=== PATIENT | male | born 1955 | race Caucasian/White ===

== ENCOUNTER 2017-10-23 09:56 | Day surgery (SDC) | payer MEDICARE ==
[2017-10-23] MEDS ORDERED: Fentanyl 250 MCG/5 ML VIAL ONE (11:51)
[2017-10-23] MEDS ORDERED: Midazolam HCl 2 mg/2 ml Vial ONE (11:51)
--- NOTE | 2017-10-23 13:35 | MRI ---
NONCONTRAST ENHANCED MRI BRAIN: Date: 10-23-17 History: 62-year-old male with history of headache. Technique: Multiplanar, multisequence noncontrast enhanced MRI images of the brain obtained. FINDINGS: The brain is unremarkable. No evidence of acute intracranial masses, hemorrhages, strokes or contusio ns seen. The ventricles are of normal size. No evidence of masses or lesions noted. There is minimal ethmoid sinus mucosal thickening seen. IMPRESSION: Unremarkable noncontrast enhanced MRI images of the brain. POS: [facility]
--- NOTE | 2017-10-23 14:12 | MRI ---
MRI CERVICAL SPINE WITHOUT CONTRAST: HISTORY: Skin paresthesias. COMPARISON: None. FINDINGS: The paraspinal musculature is bilaterally symmetric. No significant adenopathy. Back marrow signal of the cervical spine is normal. Cerebellar tonsils terminate above the foramen m agnum. Signal of the cord is normal. No acute fracture or malalignment. Levels are as follows: C2-3: No significant neural foraminal or spinal canal narrowing. Mild disk dehydration. C3-4: Mild facet arthrosis bilaterally. There is mild uncinate process hypertrophy. The spinal can al measures approximately 9 mm. C4-5: Moderate degenerative disk space height loss. Circumferential posterior disk-osteophyte compl ex as well as mild uncinate process hypertrophy. Moderate facet arthropathy. There is moderate left and mild right-sided neural foraminal narrowing. The spinal canal measures approximately 8 mm. C6-7: Mild facet arthrosis bilaterally. There is a large broad-based posterior disk-osteophyte comp theresa. The spinal canal measures approximately 8 mm. There is moderate right and mild left-side neura l foraminal narrowing. C6-7: There is near-complete effacement of the ventral CSF space due to a broad-based posterior disk protrusion. The spinal canal measures just under 7 mm. There is also mild disk arthropathy bilater ally. There is moderate and mild left side neural foraminal narrowing. IMPRESSION: 1. Multilevel spondylosis as described above, worst at C6-7 with near-complete effacement of the mildred tral cerebrospinal fluid space and narrowing of the spinal canal just under 7 mm. 2. Multifocal neural foraminal narrowing. POS: [facility]
== END 2017-10-23 14:35 | disposition home or self-care (01) ==
LOC: SDC/OP 09:56
PROVIDERS: ATTEND Psychiatry & Neurology Neurology
DX: M47.9 Spondylosis, unspecified (principal); M48.02 Spinal stenosis, cervical region; R20.2 Paresthesia of skin; Z88.0 Allergy status to penicillin
CPT/HCPCS: 70551; 72141; 93005; 93010; J2250; J3010

== ENCOUNTER 2018-10-06 19:56 | Inpatient (IN) | payer MEDICARE ==
[2018-10-06 20:30] LABS: #Basophils 0.1 thou/uL (0.0-0.2); #Eosinphils 0.2 thou/uL (0.0-0.7); #Lymphocytes 2.6 thou/uL (1.20-3.40); #Monocytes 0.6 thou/uL (0.11-0.59); #Neutrophils 5.8 thou/uL (1.40-6.50); %Basophils 0.8 % (0.0-1.0); %Eosinophils 2.2 % (0.0-10.0); %Lymphocytes 27.9 % (21.0-51.0); %Monocytes 6.7 % (0.0-10.0); %Neutrophils 62.4 % (42.0-75.0); Hemoglobin 9.9 g/dL (14.0-18.0); Mean Corpuscular HGB CONC 32.7 g/dL (32.0-36.0); Mean Corpuscular Hemoglobin 29.8 pg (27.0-31.0); Mean Corpuscular Volume 91.2 fL (78.0-98.0); Mean Platelet Volume 7.1 fL (7.4-10.4); Platelet Count 411 thou/uL (130-400); RBC Distribution Width 13.8 % (11.5-14.5); Red Blood Cell (RBC) Count 3.31 mill/uL (4.70-6.10); White Blood Cell (WBC) Count 9.4 thou/uL (4.8-10.8)
[2018-10-06 20:30] LABS: Base Excess-Venous 0.6 mmol/L (-2.0 to 3.0); Bicarbonate (HCO3v) 26.5 mmol/L (22.0-28.0); CO2 Tension (PvCO2) 48.1 mmHg (40.0-50.0); Calcium, Ionized 1.21 mmol/L (See Comments:); Chloride 110 mmol/L (98-107); Glucose 125 mg/dL (70-105); Hemoglobin - Calc 9.2 g/dL (14.0-18.0); Lactate 2.08 mmol/L (0.50-2.20); O2 Tension (PvO2) 42.6 mmHg (35.0-45.0); Potassium 3.6 mmol/L (3.5-5.1); Sodium 146 mmol/L (138-145); vO2 Saturation-calc 75.1 % (60.0-85.0)
[2018-10-06 20:37] LABS: INR-International Normal Ratio 1.1; PTT 25.3 SEC (22.9-36.1); Prothrombin Time 13.9 SEC (12.0-14.7)
[2018-10-06 20:51] LABS: ALT (SGPT) 13 U/L (8-55); AST (SGOT) 11 U/L (5-34); Albumin 3.6 g/dL (3.5-5.0); Alkaline Phosphatase 96 U/L (40-150); Anion Gap 15 mmol/L (10-20); BUN (Urea Nitrogen) 28 mg/dL (8.4-25.7); Bilirubin, Total 0.4 mg/dL (0.2-1.2); Calc. Creatinine Clearance 0 mL/min (70-130); Calcium 9.1 mg/dL (7.8-10.44); Carbon Dioxide 24 mmol/L (22-29); Chloride 110 mmol/L (98-107); Estimated GFR-MDRD 54; Globulin 2.1 g/dL (2.4-3.5); Glucose 124 mg/dL (70-105); Potassium 3.8 mmol/L (3.5-5.1); Protein, Total 5.7 g/dL (6.0-8.3); Sodium 145 mmol/L (136-145)
[2018-10-06] MEDS ORDERED: Pantoprazole 40 MG VIAL ONE (22:13)
--- NOTE | 2018-10-06 22:48 | HP ---
PRIMARY CARE PHYSICIAN: KATTY Sanchez CHIEF COMPLAINT: Bright red blood per rectum. HISTORY OF PRESENT ILLNESS: Mr. Matthew Hitchcock is a 62-year-old male with past medical history of coronary artery disease, status post stenting, diabetes type 2, colonic polyps, chronic diarrhea, and hypertension, who presents to the emergency department for bright red blood per rectum for the past 3 days. The patient reports that his bleeding started on Sunday and then it became more and more the following days. The patient was feeling very weak and that is why he came to the ER. The patient reports that he has this chronic diarrhea since May of 2018. The patient follows up with Dr. Carmen from GI. The patient had a colonoscopy about 1-1/2 week ago and they removed 24 polyps, some of them were large. The patient also is on aspirin and Plavix. 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 The patient in the ER was noted to be hypotensive and was started on fluids. GI was called and they will see the patient. The patient's hemoglobin is 9.9 on admission. The patient was surrounded by his and grandson. The patient denies any chest pain, shortness of breath, abdominal pain, nausea, vomiting, or diarrhea. PAST MEDICAL HISTORY: See HPI. PAST SURGICAL HISTORY: Coronary artery stents, polypectomy. MEDICATIONS: Include, 1. Atorvastatin. 2. Aspirin. 3. Cholestyramine. 4. Plavix. 5. Eszopiclone. 6. Levemir. 7. Losartan. 8. Lyrica. 9. Metoprolol. 10. NovoLog. 11. Nifedipine. 12. Tylenol No.3. 13. Zolpidem. 14. Trulicity. 15. Creon. 16. Vascepa. FAMILY HISTORY: The patient is unsure about his family history. SOCIAL HISTORY: The patient is a current smoker. The patient drinks occasionally. The patient says occasionally that he will also have marijuana. REVIEW OF SYSTEMS: A 10-point review of systems negative other than mentioned in the HPI. ALLERGIES: KNOWN ALLERGIES TO PENICILLIN. PHYSICAL EXAMINATION: VITAL SIGNS: Blood pressure 94/59, pulse 83, respiration rate 18, temperature 97.8, O2 saturation 95% on room air. HEENT: Head is atraumatic. GENERAL: The patient is alert and in good spirits. EARS, NOSE, AND THROAT: No exudate or bleeding noted. NECK: No lymphadenopathy noted. CARDIOVASCULAR: No murmurs, rubs, or gallops. Regular rate and rhythm. RESPIRATORY: The patient has clear breath sounds bilaterally. No wheezes. ABDOMEN: Soft and nontender. Bowel sounds hyperactive. EXTREMITIES: Lower extremities, no edema noted. NEUROLOGIC: The patient is alert. SKIN: No rashes noted. LABORATORY DATA: The patient's white blood cell count 9.4, hemoglobin 9.9, hematocrit 30.2, platelets 411. PT 13.9, INR 1.1, and PTT 25. Blood gases, VBG noted to be within acceptable limit. The patient's BNP 145, potassium 3.8, chloride 110, carbon dioxide 24, BUN 28, creatinine 1.34, glucose 124, AST and ALT 11 and 13 respectively, alkaline phosphatase 96. No imaging studies were done. ASSESSMENT: 1. Lower gastrointestinal bleed. 2. Hypertension. 3. Coronary artery disease. 4. Diabetes. 5. Hypotension. 6. Chronic diarrhea. PLAN: 1. Acute lower GI bleed, likely from multiple polypectomy recently. GI, Dr. Quigley was consulted. The patient is n.p.o. at this point. Type and screen. 1 unit of PRBC ordered. 1 unit of PRBC on hold. We will trend hemoglobin q.6. Although hemoglobin is 9.9, I do not think so that this is accurate measure at this point. The patient's acute anemia is likely due to lower GI bleed. We will continue to monitor the patient closely. 2. The patient's hypotension is likely due to lower GI bleed. The patient's BP on admission was in 70s. The patient responded to IV fluids and now his blood pressure is in 90s. Continue IV fluids and PRBC transfusion. The patient does not seem to be in the hypotensive shock at this point. Sole Rougher consulted. 3. Acute GI blood loss anemia. Plan as mentioned above. 4. Hypertension. The patient is hypertensive. We will hold home BP medication. We will add hydralazine p.r.n. for blood pressure greater than 170. 5. Coronary artery disease. We will hold the patient's aspirin and Plavix at this point. 6. Diabetes with peripheral neuropathy. The patient is n.p.o. at this point. We will hold home insulin. We will order sliding scale insulin. The patient reports that he has severe pain due to diabetic neuropathy. We will continue his home Lyrica at his request. The patient although has responded to fluids, his blood pressure is still remains low, that is why we will admit the patient to the ICU at this point. 7. The patient is full code. Medical power of real estate associate attorney is . 8. DVT prophylaxis, SCD only. Job ID: [id number]
[2018-10-06] MEDS ORDERED: Lidocaine Viscous Sol 2% 15 ml UD Cup ONE (23:03)
[2018-10-06] MEDS ORDERED: Mag-Al 1200 mg/1200 mg/30 ML UDCUP ONE (23:03)
[2018-10-06] MEDS ORDERED: HumaLOG 300 UNITS/3 ML VIAL SC PRN (23:27)
[2018-10-06] MEDS ORDERED: diphenhydrAMINE 25 MG CAP PO PRN (23:27)
[2018-10-06] MEDS ORDERED: Pantoprazole 40 MG VIAL IVP SCH (23:27)
[2018-10-06] MEDS ORDERED: hydrALAZINE 20 MG/ML VIAL SLOW IVP PRN (23:27)
[2018-10-06] MEDS ORDERED: Dextrose 50% Abboject 50 ML SYRINGE SLOW IVP PRN (23:27)
[2018-10-06] MEDS ORDERED: Furosemide 20 MG/2 ML VIAL IVP SCH (23:27)
[2018-10-06] MEDS ORDERED: Ondansetron PF 4 MG/2 ML Vial IVP PRN (23:27)
[2018-10-06] MEDS ORDERED: Acetaminophen 325 MG TAB PO PRN (23:27)
[2018-10-06] MEDS ORDERED: Dextrose 5% in Water 1,000 ML IV PRN (23:27)
[2018-10-06 23:30] VITALS: BMI 36.1
[2018-10-06] MEDS ORDERED: GoLYTELY 4,000 ml Bottle PO SCH (23:30)
[2018-10-06] MEDS: Sodium Chloride 0.9% 1,000 ML IV SCH (23:47)
[2018-10-07 00:09] LABS: Lactic Acid 1.1 mmol/L (0.5-2.2)
[2018-10-07] MEDS: Sodium Chloride 0.9% 1,000 ML IV SCH ×3 (00:12→10:38)
--- NOTE | 2018-10-07 00:31 | CON ---
DATE OF CONSULTATION: 10/06/2018 REASON FOR CONSULTATION: Hematochezia. CONSULTING PHYSICIAN: Rodolfo Chen M.D. HISTORY OF PRESENT ILLNESS: The patient is a 62-year-old male with past medical history of diabetes, coronary artery disease/myocardial infarction, hyperlipidemia, hypertension, pancreatitis, nephrolithiasis, and chronic diarrhea presenting with complaints of hematochezia. He states that he was in his usual state of health until approximately 2 to 3 days ago when he began having bright red blood per rectum that was present both in the toilet and on the toilet paper. He was having approximately 3-4 of these bloody bowel movements a day with the majority of them being nothing, but gross blood, this was slowly increasing in severity over the last 2 to 3 days until ultimately brought him to seek healthcare assistance and admission here to the ER at [facility]. Upon evaluation at [place] [facility], he was hypotensive and tachycardic, but did respond well to IV fluid administration and blood product with his systolic blood pressure of approximately 130 at the time of this interview. In addition to the above symptoms, he also complained of increase of his neuropathic pain over the last 2 to 3 days along with having a presyncopal event on his way to the ER earlier this evening. Currently, he denies any nausea, vomiting, fevers, chills, hematemesis, melena, or abdominal pain. Of note, he had a colonoscopy performed on September 25, 2018, with approximately 24 polyps removed measuring anywhere between 2 to 11 mm in size. 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 REVIEW OF SYSTEMS: A 10-category review of systems was obtained with all responses negative except for the pertinent positives as listed in the HPI. PAST MEDICAL HISTORY: As per HPI. PAST SURGICAL HISTORY: 1. Colonoscopy with polypectomy. 2. Coronary artery stent placement. FAMILY HISTORY: Denies any GI malignancy, but relatively unknown family history. SOCIAL HISTORY: Smokes approximately one pack per day in addition to intermittent use of marijuana, also drinks occasionally, but denies any other illicit drug use. OUTPATIENT MEDICATIONS: Reviewed. ALLERGIES: PENICILLIN. PHYSICAL EXAMINATION: VITAL SIGNS: Pulse 83, blood pressure 130/74, respiratory rate 18, saturating 95% on room air, temperature 97.8. GENERAL: The patient is lying in bed, in no acute distress. Alert and oriented x4. HEENT: Normocephalic, atraumatic. NECK: Supple. No JVD or scleral icterus noted. CARDIOVASCULAR: Regular rate and rhythm with no discernible murmurs, gallops, or rubs. RESPIRATORY: Clear to auscultation bilaterally with no discernible wheezes or rales. ABDOMEN: Normoactive bowel sounds. Soft, nontender, nondistended. EXTREMITIES: No cyanosis, clubbing, or edema. LABORATORY DATA: CBC with a white blood cell count of 9.4, hemoglobin 9.9, hematocrit 30.2, platelets 411. INR 1.1. Chemistry with a sodium of 146, potassium 3.8, chloride 110, CO2 of 24, BUN 28, creatinine 1.34, glucose 124, AST 11, ALT 13, alkaline phosphatase 96, total bilirubin 0.4, albumin 3.6. IMAGING DATA: No current GI imaging is available for review. ASSESSMENT AND PLAN: The patient is a 62-year-old male with past medical history of diabetes, coronary artery disease/myocardial infarction, hyperlipidemia, hypertension, pancreatitis, nephrolithiasis, and chronic diarrhea presenting with hematochezia. Hematochezia. The patient is presenting with a relatively acute onset of hematochezia characterized as bright red blood per rectum present both in the toilet and on the toilet paper that has been present for the last 2 to 3 days. This rectal bleeding has increased over the last 2 to 3 days, now having approximately 3 to 4 bowel movements over the last 24 hours, primarily consisting of gross blood. He recently had a colonoscopy performed approximately 10 days ago with removal of 24 polyps measuring anywhere between 2 to 11 mm in size, but also did have mild sigmoid diverticulosis as well as a bleeding arteriovenous malformation that was cauterized in the cecum. At this point, the more likely reason for his hematochezia would be a colonic origin whether be a post polypectomy bleed, diverticular bleed or rebleeding of the arteriovenous malformation that was intervened upon during the time of colonoscopy. However, given his hypotension and tachycardia noted on admission to the ER, an upper GI bleeding source should be ruled out as well. RECOMMENDATIONS: 1. We would continue to trend H and H and transfuse as necessary to maintain an H and H of 7/. 2. Continue to monitor clinically for signs of active GI bleeding. 3. We would continue the patient on either PPI 40 b.i.d. or a PPI drip given a likelihood of upper GI bleed. 4. We would make the patient n.p.o. Now with the administration of GoLYTELY prep in anticipation of colonoscopy in the morning. 5. We will plan for both EGD and colonoscopy tomorrow morning for evaluation of the upper and lower GI tract for signs of for etiology of GI bleeding. 6. We would avoid any anticoagulations at the current point in time, including clopidogrel. 7. We will continue to follow. 8. Please call with any questions. Job ID: [id number]
[2018-10-07] MEDS ORDERED: Furosemide 40 MG/4 ML VIAL ONE (04:59)
[2018-10-07] MEDS: HYDROcodone/Acetaminophen 5/325 mg Tablet PO PRN (05:00)
[2018-10-07 06:28] LABS: #Basophils 0.1 thou/uL (0.0-0.2); #Eosinphils 0.1 thou/uL (0.0-0.7); #Lymphocytes 2.6 thou/uL (1.20-3.40); #Monocytes 0.6 thou/uL (0.11-0.59); #Neutrophils 7.8 thou/uL (1.40-6.50); %Basophils 0.6 % (0.0-1.0); %Eosinophils 1.2 % (0.0-10.0); %Monocytes 5.4 % (0.0-10.0); %Neutrophils 69.9 % (42.0-75.0); Hemoglobin 10.6 g/dL (14.0-18.0); Mean Corpuscular HGB CONC 32.5 g/dL (32.0-36.0); Mean Corpuscular Hemoglobin 29.7 pg (27.0-31.0); Mean Corpuscular Volume 91.3 fL (78.0-98.0); Mean Platelet Volume 7.2 fL (7.4-10.4); Platelet Count 380 thou/uL (130-400); Red Blood Cell (RBC) Count 3.58 mill/uL (4.70-6.10); White Blood Cell (WBC) Count 11.2 thou/uL (4.8-10.8)
[2018-10-07 06:50] LABS: Anion Gap 13 mmol/L (10-20); BUN (Urea Nitrogen) 25 mg/dL (8.4-25.7); Calc. Creatinine Clearance 145 mL/min (70-130); Calcium 9.2 mg/dL (7.8-10.44); Carbon Dioxide 25 mmol/L (22-29); Chloride 111 mmol/L (98-107); Estimated GFR-MDRD 77; Glucose 115 mg/dL (70-105); Potassium 3.6 mmol/L (3.5-5.1); Sodium 145 mmol/L (136-145)
[2018-10-07 07:02] LABS: #Basophils 0.1 thou/uL (0.0-0.2); #Eosinphils 0.1 thou/uL (0.0-0.7); #Lymphocytes 2.5 thou/uL (1.20-3.40); #Monocytes 0.6 thou/uL (0.11-0.59); #Neutrophils 7.7 thou/uL (1.40-6.50); %Basophils 0.7 % (0.0-1.0); %Eosinophils 1.3 % (0.0-10.0); %Lymphocytes 22.8 % (21.0-51.0); %Monocytes 5.1 % (0.0-10.0); %Neutrophils 70.1 % (42.0-75.0); Mean Corpuscular HGB CONC 32.7 g/dL (32.0-36.0); Mean Corpuscular Hemoglobin 29.7 pg (27.0-31.0); Mean Platelet Volume 6.9 fL (7.4-10.4); Platelet Count 388 thou/uL (130-400); Red Blood Cell (RBC) Count 3.35 mill/uL (4.70-6.10); White Blood Cell (WBC) Count 10.9 thou/uL (4.8-10.8)
--- NOTE | 2018-10-07 08:00 | PDOC.PULCN ---
Pulmonology Consult: HPI - Date of Consult Date: 10/06/18 Time: 23:27 - Consult Details Reason for Consult: ICU placement, hypotension 2/2 GI bleed Requesting Physician: Dr. Boyce Comments: History and physical exam and note written by resident physician, Dr. Condon, seeing patient with Dr. Luna. Please see addendum to note for additional plan/changes. - History of Present Illness HPI: GIDEON STEPHEN is a 62 year-old M with a PMH of CAD, HTN, HLD, DM, Pancreatitis and Chronic diarrhea who was brought into ED by for a 2-3 day history of painless BRBPR, approximately 3-4 episodes per day. He developed weakness and pre-syncope so he decided to come to ER yesterday. Patient states that he recently had colonoscopy performed in September 2018 for workup of chronic diarrhea that began in May 2018. During colonoscopy, approximately 24 2-11 mm polyps were removed and AVM was cauterized in cecum. He was also noted to have mild sigmoid diverticulosis. Patient was hypotensive upon presentation to the ED and BP responded to IVF resuscitation. Hemoglobin on admission was 9.9. Hemoglobin this morning is 10.0 and he is s/p 1 U pRBC. Patient has been seen by GI with plan for colonoscopy today. He has been drink prep and continues to have BRBPR. He continues to be hemodynamically stable since admission and he is pain free. Pulmonology Consult: ROS - Review of Systems Constitutional: negative: fever, chills, sweats Cardiovascular: negative: chest pain, palpitations, orthopnea, paroxysmal nocturnal dyspnea, edema Respiratory: negative: bloody sputum, congestion, cough, chest tightness Pulmonology Consult: PMH Source: patient Past Medical History: CAD, Hypertension, Hyperlipidemia, Type 2 Diabetes Mellitus, Pancreatitis, Nephrolithiasis, Chronic Diarrhea - Family History Pertinent family history: patient unsure of family history - Social History Smoking Status: Current every day smoker Alcohol Use: occasional Drug Use History: marijuana Living Situation: Pulmonology Consult: Meds - Medications MAR Reviewed: Yes Medications: Current Medications Acetaminophen (Tylenol) 650 mg PO Q4H PRN PRN Reason: Headache/Fever/Mild Pain (1-3) Hydrocodone Bitart/Acetaminophen ([place] 5/325) 1 tab PO Q4H PRN PRN Reason: Moderate Pain (4-6) Last Admin: 10/07/18 05:00 Dose: 1 tab Dextrose/Water (Dextrose 50%) 25 gm SLOW IVP PRN PRN PRN Reason: Hypoglycemia Diphenhydramine HCl (Benadryl) 25 mg PO ONE PRN PRN Reason: Allergies Stop: 10/07/18 08:00 Furosemide (Lasix) 10 mg IVP ONE [facility] Stop: 10/07/18 23:28 Glucagon (Glucagon) 1 mg IM PRN PRN PRN Reason: Hypoglycemia Hydralazine HCl (Apresoline) 10 mg SLOW IVP Q4H PRN PRN Reason: SBP Greater Than 170 Dextrose/Water (D5w) 1,000 mls @ 0 mls/hr IV .Q0M PRN PRN Reason: Hypoglycemia Sodium Chloride (Normal Saline 0.9%) 1,000 mls @ 100 mls/hr IV .Q10H [facility] Stop: 10/07/18 16:00 Last Admin: 10/06/18 23:47 Dose: Not Given Sodium Chloride (Normal Saline 0.9%) 1,000 mls @ 150 mls/hr IV .Q6H40M [facility] Stop: 10/07/18 11:00 Last Admin: 10/07/18 05:07 Dose: 1,000 mls Insulin Human Lispro (Humalog) 0 units SC .MILD SLIDING SCALE PRN PRN Reason: Mild Correctional Scale Ondansetron HCl (Zofran) 4 mg IVP Q6H PRN PRN Reason: Nausea/Vomiting Last Admin: 10/07/18 03:50 Dose: 4 mg Pantoprazole Sodium (Protonix) 40 mg IVP Q12HR [facility] Pregabalin (Lyrica) 150 mg PO TID [facility] Sodium Chloride (Flush - Normal Saline) 10 ml IVF PRN PRN PRN Reason: Saline Flush - Allergies Allergies/Adverse Reactions: Allergies Allergy/AdvReac Type Severity Reaction Status Date / Time Penicillins Allergy Anaphylaxis Verified 10/06/18 23:44 Pulmonology Consult: PE - Physical Exam Constitutional: NAD HEENT: PERRLA, moist MMs, sclera anicteric Neck: no JVD, supple, full ROM Cardiovascular: RRR, no significant murmur Respiratory: clear to auscultation anteriorly Gastrointestinal: soft, non-tender, no distention, positive bowel sounds Musculoskeletal: no edema, pulses present Neurological: non-focal, normal sensation, moves all 4 limbs Psychiatric: normal affect, A&O x 3 Skin: no rash, cap refill <2 seconds Pulmonology Consult: Results - Labs Result Diagrams: 10/09/18 04:44 10/09/18 04:44 - ABG Interpretation ABG Results: POC Bicarbonate Calc 26.5 mmol/L (22.0-28.0) 10/06/18 20:28 Pulmonology Consult: A/P - Problem (1) Anemia due to acute blood loss Current Visit: Yes Code(s): D62 - ACUTE POSTHEMORRHAGIC ANEMIA Status: Acute (2) GI bleed Current Visit: Yes Code(s): K92.2 - GASTROINTESTINAL HEMORRHAGE, UNSPECIFIED Status: Acute (3) CAD (coronary artery disease) Current Visit: Yes Code(s): I25.10 - ATHSCL HEART DISEASE OF [place] CORONARY ARTERY W/O ANG PCTRS Status: Chronic (4) Chronic pancreatitis Current Visit: Yes Code(s): K86.1 - OTHER CHRONIC PANCREATITIS Status: Chronic (5) Diabetes type 2, controlled Current Visit: Yes Code(s): E11.9 - TYPE 2 DIABETES MELLITUS WITHOUT COMPLICATIONS Status: Chronic (6) Dyslipidemia Current Visit: Yes Code(s): E78.5 - HYPERLIPIDEMIA, UNSPECIFIED Status: Chronic (7) Obesity (BMI 30-39.9) Current Visit: Yes Code(s): E66.9 - OBESITY, UNSPECIFIED Status: Chronic (8) Acute kidney injury Current Visit: Yes Code(s): N17.9 - ACUTE KIDNEY FAILURE, UNSPECIFIED Status : Resolved (9) Hypotension Current Visit: Yes Status: Resolved - Time Time: 50% of the time was spent in coordination of care (as documented) at patient's floor/unit and/or counseling patient. Time with Patient: greater than 70 minutes - Plan Plan: Patient is stable from a respiratory and hemodynamic standpoint. Hypotension and UDAY have resolved with IVFs. Hemoglobin currently at 10.0 s/p 1 U pRBC. Patient is to undergo colonoscopy today, has completed prep. Continue to hold aspirin and plavix. IV protonix 40 mg BID. Further management per primary team and GI. Will follow closely while in the CCU. Depending upon findings during colonoscopy, patient can likely be transferred to the floor today. Addendum - Attending - Attending Attestation Date/Time: 10/07/181599 I personally evaluated the patient and discussed the management with Dr. Condon. I agree with the History, Examination, Assessment and Plan documented above with any addition or exceptions noted below. 70 minutes have been devoted to this patient in various activities. I personally reviewed all imaging studies and laboratory data noted within this document. For fifty percent of this time, I was interacting with the patient at the bedside or coordinating care with the care team. For the remainder of the time I was immediately available to the patient in the hospital unit.
[2018-10-07] MEDS: Pantoprazole 40 MG VIAL IVP SCH ×2 (08:16→21:36)
[2018-10-07] MEDS: Pregabalin 50 MG CAP PO SCH ×3 (10:37→21:35)
--- NOTE | 2018-10-07 10:37 | PDOC.PN ---
- Subjective Encounter Start Date: 10/07/18 Encounter Start Time: 09:00 -: old records requested/rev Patient seen and examined. No new complaints. No overnight events - Objective Resuscitation Status - Order Detail: 10/06/18 21:29 Resuscitation Status Routine Resuscitation Status: FULL: Full Resuscitation MAR Reviewed: Yes Vital Signs & Weight: Vital Signs (12 hours) Temp Pulse Ox 10/07/18 08:00 99 10/07/18 07:00 97.7 F 10/07/18 04:00 97.9 F 10/07/18 00:00 98.5 F 98 Weight Admit Weight 281 lb 4.957 oz Weight 284 lb 13.396 oz Most Recent Monitor Data Heart Rate from ECG 94 NIBP 120/78 NIBP BP-Mean 92 Respiration from ECG 16 SpO2 94 I&O: 10/06/18 10/07/18 10/08/18 06:59 06:59 06:59 Intake Total 5291 0 Output Total 200 Balance 5091 0 Result Diagrams: 10/07/18 06:41 10/07/18 05:52 Additional Labs: Accuchecks 10/07/18 10/06/18 06:04 23:39 POC Glucose 126 H 161 H EKG Reviewed by me: Yes Phys Exam - Physical Examination Constitutional: NAD HEENT: PERRLA, moist MMs, sclera anicteric Neck: no JVD, supple Respiratory: no wheezing, no rales, no rhonchi Cardiovascular: RRR, no significant murmur, no rub Gastrointestinal: soft, non-tender, no distention, positive bowel sounds obesity+ Musculoskeletal: no edema, pulses present Neurological: non-focal, normal sensation, moves all 4 limbs Lymphatic: no nodes Psychiatric: normal affect, A&O x 3 Skin: no rash, normal turgor Dx/Plan (1) Anemia due to acute blood loss Code(s): D62 - ACUTE POSTHEMORRHAGIC ANEMIA Status: Acute (2) GI bleed Code(s): K92.2 - GASTROINTESTINAL HEMORRHAGE, UNSPECIFIED Status: Acute (3) CAD (coronary artery disease) Code(s): I25.10 - ATHSCL HEART DISEASE OF [place] CORONARY ARTERY W/O ANG PCTRS Status: Chronic (4) Chronic pancreatitis Code(s): K86.1 - OTHER CHRONIC PANCREATITIS Status: Chronic (5) Diabetes type 2, controlled Code(s): E11.9 - TYPE 2 DIABETES MELLITUS WITHOUT COMPLICATIONS Status: Chronic (6) Dyslipidemia Code(s): E78.5 - HYPERLIPIDEMIA, UNSPECIFIED Status: Chronic (7) Hypertension Code(s): I10 - ESSENTIAL (PRIMARY) HYPERTENSION Status: Chronic (8) Obesity (BMI 30-39.9) Code(s): E66.9 - OBESITY, UNSPECIFIED Status: Chronic (9) Acute kidney injury Code(s): N17.9 - ACUTE KIDNEY FAILURE, UNSPECIFIED Status: Resolved (10) Hypotension Status: Resolved - Plan cont current plan of care * today EGD and colonoscopy * vitals stable * transfer to medical * medication reviewed as below * symptomatic treatment. Review of Systems - Review of Systems Eyes: negative: Pain, Vision Change, Conjunctivae Inflammation, Eyelid Inflammation, Redness, Other ENT: negative: Ear Pain, Ear Discharge, Nose Pain, Nose Discharge, Nose Congestion, Mouth Pain, Mouth Swelling, Throat Pain, Throat Swelling, Other Respiratory: negative: Cough, Dry, Shortness of Breath, Hemoptysis, SOB with Excertion, Pleuritic Pain, Sputum, Wheezing Cardiovascular: negative: chest pain, palpitations, orthopnea, paroxysmal nocturnal dyspnea, edema, light headedness, other Gastrointestinal: Hematochezia. negative: Nausea, Vomiting, Abdominal Pain, Diarrhea, Constipation, Melena, Other Genitourinary: negative: Dysuria, Frequency, Incontinence, Hematuria, Retention , Other Musculoskeletal: negative: Neck Pain, Shoulder Pain, Arm Pain, Back Pain, Hand Pain, Leg Pain, Foot Pain, Other Skin: negative: Rash, Lesions, Juanp[place], Bruising, Other - Medications/Allergies Allergies/Adverse Reactions: Allergies Allergy/AdvReac Type Severity Reaction Status Date / Time Penicillins Allergy Anaphylaxis Verified 10/06/18 23:44 Medications: Current Medications Acetaminophen (Tylenol) 650 mg PO Q4H PRN PRN Reason: Headache/Fever/Mild Pain (1-3) Hydrocodone Bitart/Acetaminophen ([place] 5/325) 1 tab PO Q4H PRN PRN Reason: Moderate Pain (4-6) Last Admin: 10/07/18 05:00 Dose: 1 tab Dextrose/Water (Dextrose 50%) 25 gm SLOW IVP PRN PRN PRN Reason: Hypoglycemia Furosemide (Lasix) 10 mg IVP ONE [facility] Stop: 10/07/18 23:28 Glucagon (Glucagon) 1 mg IM PRN PRN PRN Reason: Hypoglycemia Hydralazine HCl (Apresoline) 10 mg SLOW IVP Q4H PRN PRN Reason: SBP Greater Than 170 Dextrose/Water (D5w) 1,000 mls @ 0 mls/hr IV .Q0M PRN PRN Reason: Hypoglycemia Sodium Chloride (Normal Saline 0.9%) 1,000 mls @ 100 mls/hr IV .Q10H [facility] Stop: 10/07/18 16:00 Last Admin: 10/06/18 23:47 Dose: Not Given Sodium Chloride (Normal Saline 0.9%) 1,000 mls @ 150 mls/hr IV .Q6H40M [facility] Stop: 10/07/18 11:00 Last Admin: 10/07/18 05:07 Dose: 1,000 mls Insulin Human Lispro (Humalog) 0 units SC .MILD SLIDING SCALE PRN PRN Reason: Mild Correctional Scale Ondansetron HCl (Zofran) 4 mg IVP Q6H PRN PRN Reason: Nausea/Vomiting Last Admin: 10/07/18 03:50 Dose: 4 mg Pantoprazole Sodium (Protonix) 40 mg IVP Q12HR [facility] Last Admin: 10/07/18 08:16 Dose: 40 mg Pregabalin (Lyrica) 150 mg PO TID [facility] Sodium Chloride (Flush - Normal Saline) 10 ml IVF PRN PRN PRN Reason: Saline Flush
[2018-10-07] MEDS ORDERED: Lidocaine 1% PF 5 ML VIAL ONE (11:58)
[2018-10-07] MEDS ORDERED: PROPOFOL 200 MG/20 ML VIAL ONE (11:58)
[2018-10-07 12:11] LABS: #Basophils 0.1 thou/uL (0.0-0.2); #Eosinphils 0.1 thou/uL (0.0-0.7); #Monocytes 0.5 thou/uL (0.11-0.59); #Neutrophils 5.5 thou/uL (1.40-6.50); %Basophils 0.7 % (0.0-1.0); %Eosinophils 1.7 % (0.0-10.0); %Lymphocytes 24.5 % (21.0-51.0); %Neutrophils 67.1 % (42.0-75.0); Hemoglobin 8.9 g/dL (14.0-18.0); Mean Corpuscular HGB CONC 32.4 g/dL (32.0-36.0); Mean Corpuscular Hemoglobin 29.3 pg (27.0-31.0); Mean Corpuscular Volume 90.2 fL (78.0-98.0); Mean Platelet Volume 6.8 fL (7.4-10.4); Platelet Count 365 thou/uL (130-400); Red Blood Cell (RBC) Count 3.04 mill/uL (4.70-6.10); White Blood Cell (WBC) Count 8.2 thou/uL (4.8-10.8)
[2018-10-07] MEDS ORDERED: Fentanyl 100 MCG/2 ML VIAL ONE (14:51)
[2018-10-07 17:28] LABS: Hemoglobin 8.4 g/dL (14.0-18.0)
[2018-10-08 05:20] LABS: Hemoglobin 7.9 g/dL (14.0-18.0)
[2018-10-08] MEDS ORDERED: Eucerin (Mineral Oil/Petrolatum,White) 30 gm Jar TOP PRN (07:47)
[2018-10-08] MEDS ORDERED: Calcium Carbonate 500 MG ChewTAB PO PRN (07:47)
[2018-10-08] MEDS ORDERED: Sodium Chloride 0.65% Nasal 44 ML BOT EA NARE PRN (07:47)
[2018-10-08] MEDS ORDERED: Diabetic Tussin 200 MG/10 ML UDCUP PO PRN (07:47)
[2018-10-08] MEDS ORDERED: Senokot S 8.6-50 MG TAB PO PRN (07:47)
[2018-10-08] MEDS ORDERED: Bisacodyl 5 MG TAB PO PRN (07:47)
[2018-10-08] MEDS ORDERED: Ondansetron ODT 4 MG TAB SL PRN (07:47)
[2018-10-08] MEDS ORDERED: Artificial Tears 18 DROP/0.9 ML EA EYE PRN (07:47)
[2018-10-08] MEDS ORDERED: Cepastat Lozenges 1 LOZ PO PRN (07:47)
[2018-10-08] MEDS ORDERED: Acetaminophen 325 MG TAB PO PRN (07:47)
[2018-10-08] MEDS: Pregabalin 50 MG CAP PO SCH ×3 (08:39→21:02)
[2018-10-08] MEDS: Pantoprazole 40 MG VIAL IVP SCH ×2 (08:41→21:03)
[2018-10-08] MEDS: HYDROcodone/Acetaminophen 5/325 mg Tablet PO PRN ×2 (08:50→14:52)
--- NOTE | 2018-10-08 08:52 | OP ---
DATE OF PROCEDURE: 10/07/2018 PREPROCEDURE DIAGNOSES: 1. Lower gastrointestinal bleeding. 2. Recent colonoscopy with 19 polyps removed on 09/25/2018. POSTPROCEDURE DIAGNOSES: 1. Multiple polypectomy sites, none with visible vessel or active bleeding. One with red spots in the base of the cecum. Hemoclip was placed on that. 3 mL of epi was injected in that area as well and help clear the area. 2. Other multiple white based ulcers without active bleeding noted scattered throughout the colon. 3. Several flat polyps especially about 50 cm to 60 cm in the splenic flexure region. These were not removed secondary to the issues of bleeding at this time. RECOMMENDATIONS: 1. Hold Plavix for 10 days. 2. Monitor H and H. 3. Advance diet slowly. 4. The patient will have probably short followup interval colonoscopy with regard to the remaining polyps seen and the number of polyps removed at the time of this colonoscopy. ANESTHESIA: TIVA. PROCEDURE IN DETAIL: The patient was informed of the risks, benefits, and possible complications of endoscopy including perforation, reaction to medication, and aspiration, informed consent was obtained. The patient was brought to the endoscopy suite, where he was sedated in gradual fashion. Once he was comfortable, a bite block was placed into the rectum. Once he was comfortable, rectal exam was performed which was normal. The endoscope was advanced to the anal colon through the colon to the cecum, which was identified by the ileocecal valve and appendiceal orifice. The terminal ileum was entered and found to be normal. There was clot throughout the colon which was irrigated away with about 2 L of sterile water. The procedure time was about an hour and 15 minutes. We were able to clear the colon and find multiple polypectomy sites with ulceration most of white base with no stigmata of bleeding, but one in the cecum had some red spots and we did inject some epi around that to get the oozing to stop. A hemoclip was then placed. The scope was removed with good visualization of the colon and any air, old blood or clot was pulled, it was suctioned and evacuated. A BioVac suction adapter was used to help really get the colon clean. No other bleeding sites were identified. Multiple flat polyps were noted with increased mucosal enhancement of the blood and the lumen showed some flat polyps in the area of the splenic flexure, about 50 cm to 60 cm in the anorectal verge. Retroflexion views in the rectum were normal. The scope was removed. The patient tolerated the procedure well. No complications. Job ID: [id number]
[2018-10-08] MEDS ORDERED: Losartan 25 MG TAB PO SCH (09:30)
[2018-10-08] MEDS ORDERED: Furosemide 40 MG/4 ML VIAL SLOW IVP SCH (09:30)
--- NOTE | 2018-10-08 09:39 | PRG ---
DATE OF SERVICE: 10/08/2018 SERVICE: Pulmonary Medicine. INTERVAL HISTORY: The patient did fine overnight. His hemoglobin and hematocrit remained stable. He had a colonoscopy yesterday. No visible bleeding was noted , but there was a red spot in the cecum. That place was hemoclipped and injected. There were multiple white based ulcers that were otherwise identified. GI has made some recommendations. He had a bowel movement yesterday, and he did not have any blood in it. Denies any fevers, chills, or overnight events. He is getting a whooshing sound in his ear when he sits up right. This can happen whenever his blood pressure becomes more elevated. Since he has been here, his home blood pressure medications were appropriately held. PHYSICAL EXAMINATION: VITAL SIGNS: Afebrile, pulse 81, blood pressure 169/78, respirations 15, and saturation 97% on room air. GENERAL: The patient is awake and alert, in no apparent distress. LUNGS: Excellent air entry. There is no prolonged expiratory phase or wheezing present. HEART: Normal rate and regular. ABDOMEN: Soft, nontender, and nondistended. Bowel sounds are positive. MUSCULOSKELETAL: No cyanosis or clubbing. No pitting in the bilateral lower extremities. NEUROLOGIC: Grossly nonfocal. LABORATORY DATA: Hemoglobin is stable at 7.9. INR 1.1. Basic metabolic profile is otherwise unremarkable. ASSESSMENT: 1. Acute blood loss anemia, stable. 2. Lower gastrointestinal bleed. 3. Recent colonoscopy, status post polypectomy, multiple. DISCUSSION AND PLAN: We will resume the patient's home blood pressure medications. I will provide him with a single dose of Lasix as well. We will start to mobilize him. I will transition him out of the ICU to the medical unit. The patient has no further requirements for inpatient Pulmonary/Critical Care opinion, and I will sign off. Please call with additional questions or concerns. Job ID: [id number] [facility]
--- NOTE | 2018-10-08 12:14 | PDOC.PN ---
- Subjective Encounter Start Date: 10/08/18 Encounter Start Time: 10:00 Patient seen and examined. No new complaints. No overnight events - Objective Resuscitation Status - Order Detail: 10/06/18 21:29 Resuscitation Status Routine Resuscitation Status: FULL: Full Resuscitation MAR Reviewed: Yes Vital Signs & Weight: Vital Signs (12 hours) Temp Pulse Ox 10/08/18 08:00 98 10/08/18 04:00 98.1 F Weight Admit Weight 281 lb 4.957 oz Weight 288 lb 1.954 oz Most Recent Monitor Data Heart Rate from ECG 95 NIBP 177/105 NIBP BP-Mean 129 Respiration from ECG 19 SpO2 93 I&O: 10/07/18 10/08/18 10/09/18 06:59 06:59 06:59 Intake Total 5291 2822 Output Total 200 750 Balance 5091 2072 Result Diagrams: 10/08/18 04:27 10/07/18 05:52 Additional Labs: Accuchecks 10/08/18 10/08/18 10/07/18 11:37 06:04 17:34 POC Glucose 148 H 129 H 123 H EKG Reviewed by me: Yes Phys Exam - Physical Examination Constitutional: NAD HEENT: PERRLA, moist MMs, sclera anicteric Neck: no JVD, supple Respiratory: no wheezing, no rales, no rhonchi Cardiovascular: RRR, no significant murmur, no rub Gastrointestinal: soft, non-tender, no distention, positive bowel sounds Musculoskeletal: no edema, pulses present Neurological: non-focal, normal sensation, moves all 4 limbs Lymphatic: no nodes Psychiatric: normal affect, A&O x 3 Skin: no rash, normal turgor Dx/Plan (1) Anemia due to acute blood loss Code(s): D62 - ACUTE POSTHEMORRHAGIC ANEMIA Status: Acute (2) GI bleed Code(s): K92.2 - GASTROINTESTINAL HEMORRHAGE, UNSPECIFIED Status: Acute (3) CAD (coronary artery disease) Code(s): I25.10 - ATHSCL HEART DISEASE OF [place] CORONARY ARTERY W/O ANG PCTRS Status: Chronic (4) Chronic pancreatitis Code(s): K86.1 - OTHER CHRONIC PANCREATITIS Status: Chronic (5) Diabetes type 2, controlled Code(s): E11.9 - TYPE 2 DIABETES MELLITUS WITHOUT COMPLICATIONS Status: Chronic (6) Dyslipidemia Code(s): E78.5 - HYPERLIPIDEMIA, UNSPECIFIED Status: Chronic (7) Hypertension Code(s): I10 - ESSENTIAL (PRIMARY) HYPERTENSION Status: Chronic (8) Obesity (BMI 30-39.9) Code(s): E66.9 - OBESITY, UNSPECIFIED Status: Chronic (9) Acute kidney injury Code(s): N17.9 - ACUTE KIDNEY FAILURE, UNSPECIFIED Status: Resolved (10) Hypotension Status: Resolved - Plan cont current plan of care * medication reviewed as below * symptomatic treatment * today transfer to medical floor * advance diet * if stable H & H will consider discharge tomorrow. Review of Systems - Review of Systems Respiratory: negative: Cough, Dry, Shortness of Breath, Hemoptysis, SOB with Excertion, Pleuritic Pain, Sputum, Wheezing Cardiovascular: negative: chest pain, palpitations, orthopnea, paroxysmal nocturnal dyspnea, edema, light headedness, other Gastrointestinal: negative: Nausea, Vomiting, Abdominal Pain, Diarrhea, Constipation, Melena, Hematochezia, Other Genitourinary: negative: Dysuria, Frequency, Incontinence, Hematuria, Retention , Other Musculoskeletal: negative: Neck Pain, Shoulder Pain, Arm Pain, Back Pain, Hand Pain, Leg Pain, Foot Pain, Other Skin: negative: Rash, Lesions, Juanpablo, Bruising, Other - Medications/Allergies Allergies/Adverse Reactions: Allergies Allergy/AdvReac Type Severity Reaction Status Date / Time Penicillins Allergy Anaphylaxis Verified 10/06/18 23:44 Medications: Current Medications Acetaminophen (Tylenol) 650 mg PO Q4H PRN PRN Reason: Headache/Fever Acetaminophen (Tylenol) 650 mg PO Q6H PRN PRN Reason: Mild Pain (1-3) Hydrocodone Bitart/Acetaminophen ([place] 5/325) 1 tab PO Q4H PRN PRN Reason: Moderate Pain (4-6) Last Admin: 10/08/18 08:50 Dose: 1 tab Artificial Tears (Tears Naturale) 2 drop EA EYE PRN PRN PRN Reason: Dry Eyes Bisacodyl (Dulcolax) 10 mg PO DAILYPRN PRN PRN Reason: Constipation Calcium Carbonate (Tums) 1,000 mg PO Q4H PRN PRN Reason: Heartburn or Indigestion Dextrose/Water (Dextrose 50%) 25 gm SLOW IVP PRN PRN PRN Reason: Hypoglycemia Glucagon (Glucagon) 1 mg IM PRN PRN PRN Reason: Hypoglycemia Guaifenesin (Robitussin Sf) 200 mg PO Q4H PRN PRN Reason: Cough Hydralazine HCl (Apresoline) 10 mg SLOW IVP Q4H PRN PRN Reason: SBP Greater Than 170 Dextrose/Water (D5w) 1,000 mls @ 0 mls/hr IV .Q0M PRN PRN Reason: Hypoglycemia Insulin Human Lispro (Humalog) 0 units SC .MILD SLIDING SCALE PRN PRN Reason: Mild Correctional Scale Losartan Potassium (Cozaar) 25 mg PO DAILY [facility] Metoprolol Succinate (Toprol Xl) 50 mg PO DAILY [facility] Mineral Oil/White Petrolatum (Eucerin Cream) 0 gm TOP BIDPRN PRN PRN Reason: Dry Skin Nifedipine (Procardia Xl) 30 mg PO DAILY [facility] Ondansetron HCl (Zofran) 4 mg IVP Q6H PRN PRN Reason: Nausea/Vomiting Last Admin: 10/07/18 03:50 Dose: 4 mg Ondansetron HCl (Zofran Odt) 4 mg SL Q6H PRN PRN Reason: Nausea/Vomiting Pantoprazole Sodium (Protonix) 40 mg IVP Q12HR [facility] Last Admin: 10/08/18 08:41 Dose: 40 mg Pregabalin (Lyrica) 150 mg PO TID [facility] Last Admin: 10/08/18 08:39 Dose: 150 mg Senna/Docusate Sodium (Senokot S) 2 tab PO BID PRN PRN Reason: Constipation Sodium Chloride (Flush - Normal Saline) 10 ml IVF PRN PRN PRN Reason: Saline Flush Sodium Chloride ([place] Nasal [place] 0.65%) 0 ml EA NARE QIDPRN PRN PRN Reason: Nasal Congestion Throat Lozenges (Cepastat Lozenges) 1 valeria PO Q2H PRN PRN Reason: Sore Throat
[2018-10-08] MEDS ORDERED: Zolpidem Tartrate 5 MG TAB PO PRN (13:14)
--- NOTE | 2018-10-08 13:25 | PRG ---
DATE OF SERVICE: 10/08/2018 SUBJECTIVE: Mr. Hitchcock has had no further overt bleeding. No abdominal pain associated with this. OBJECTIVE: VITAL SIGNS: Temperature is 97.9, pulse 95, blood pressure 177/105. GENERAL: He is in no acute distress. Alert and oriented x3. LUNGS: Clear to auscultation bilaterally. HEART: Regular rate and rhythm. ABDOMEN: Soft, nontender, nondistended. Bowel sounds are present. EXTREMITIES: No lower extremity edema. LABORATORY DATA: Hemoglobin is 7.9. IMPRESSION: 1. Anemia of acute blood loss. 2. Postpolypectomy hemorrhage, resolved. 3. Chronic diarrhea. He has filled the prescription for a trial of Creon. However, he has not really had a chance to try this yet. 4. Tobacco abuse. Previously smoking 2 packs per day. He is transitioning to electronic cigarettes currently. 5. Coronary artery disease. RECOMMENDATIONS: 1. Plavix can likely be restarted in 5-7 days. 2. He should have repeat colonoscopy in 6 to 12 months to remove any remaining polyps. 3. He should be ready to discharge home in the morning from a GI standpoint. Job ID: [id number]
[2018-10-08] MEDS: Pancrelipase DR 12000 1 CAP PO SCH (17:03)
[2018-10-08] MEDS ORDERED: CHOLESTYRAMINE 4 GM PO SCH (21:00)
[2018-10-08] MEDS ORDERED: [UNRECOGNIZED DRUG - OTHER] PO SCH (21:00)
[2018-10-08] MEDS ORDERED: Atorvastatin Calcium 10 MG TAB PO SCH (21:00)
[2018-10-08] MEDS ORDERED: Non-Formulary Item 1 EACH (Levemir Flexpen [Levemir Flexpen] 10 UNIT) SQ SCH (21:00)
[2018-10-08] MEDS ORDERED: Insulin Glargine 10 UNITS in Pre-Filled Syringe 1 EACH SC SCH (21:00)
[2018-10-08] MEDS: Cholestyramine/Aspartame 4 gm Packet PO SCH (22:21)
[2018-10-09 04:56] LABS: #Basophils 0.1 thou/uL (0.0-0.2); #Eosinphils 0.3 thou/uL (0.0-0.7); #Lymphocytes 2.3 thou/uL (1.20-3.40); #Monocytes 0.5 thou/uL (0.11-0.59); #Neutrophils 4.6 thou/uL (1.40-6.50); %Basophils 1.1 % (0.0-1.0); %Eosinophils 4.2 % (0.0-10.0); %Lymphocytes 28.9 % (21.0-51.0); %Monocytes 6.7 % (0.0-10.0); %Neutrophils 59.1 % (42.0-75.0); Hemoglobin 8.2 g/dL (14.0-18.0); Mean Corpuscular HGB CONC 33.1 g/dL (32.0-36.0); Mean Corpuscular Hemoglobin 29.9 pg (27.0-31.0); Mean Corpuscular Volume 90.3 fL (78.0-98.0); Mean Platelet Volume 6.7 fL (7.4-10.4); Platelet Count 345 thou/uL (130-400); RBC Distribution Width 13.6 % (11.5-14.5); Red Blood Cell (RBC) Count 2.75 mill/uL (4.70-6.10); White Blood Cell (WBC) Count 7.8 thou/uL (4.8-10.8)
[2018-10-09 05:20] LABS: Anion Gap 8 mmol/L (10-20); BUN (Urea Nitrogen) 13 mg/dL (8.4-25.7); Calc. Creatinine Clearance 182 mL/min (70-130); Calcium 8.9 mg/dL (7.8-10.44); Carbon Dioxide 32 mmol/L (22-29); Chloride 107 mmol/L (98-107); Estimated GFR-MDRD Greater than 90; Glucose 134 mg/dL (70-105); Potassium 3.4 mmol/L (3.5-5.1); Sodium 144 mmol/L (136-145)
[2018-10-09] MEDS ORDERED: Losartan 25 MG TAB PO SCH (09:00)
[2018-10-09] MEDS ORDERED: Insulin Glargine 48 UNITS in Pre-Filled Syringe 1 EACH SC SCH (09:00)
[2018-10-09] MEDS ORDERED: INSULIN DETEMIR SQ SCH (09:00)
[2018-10-09] MEDS ORDERED: NIFEdipine XL 30 MG TAB PO SCH (09:00)
[2018-10-09] MEDS: Pregabalin 50 MG CAP PO SCH ×2 (09:04→15:46)
[2018-10-09] MEDS: Pancrelipase DR 12000 1 CAP PO SCH ×2 (09:06→13:36)
[2018-10-09] MEDS: Pantoprazole 40 MG VIAL IVP SCH (09:06)
[2018-10-09] MEDS: HYDROcodone/Acetaminophen 5/325 mg Tablet PO PRN (10:26)
[2018-10-09] MEDS: Cholestyramine/Aspartame 4 gm Packet PO SCH (10:27)
[2018-10-09] MEDS ORDERED: Potassium Chloride 20 MEQ TAB PO SCH (12:30)
[2018-10-09 16:03] VITALS: BP 135/80; TEMP 97.8
--- NOTE | 2018-10-11 10:34 | DIS ---
DATE OF ADMISSION: 10/06/2018 DATE OF DISCHARGE: 10/09/2018 DISCHARGE DISPOSITION: Home. FOLLOWUP: 1. Follow up with primary care physician, Thao Saldana, in 1 week. 2. Follow up with Gastroenterology, Dr. Fernando, in 2 to 3 weeks. 3. The patient was advised to restart Plavix after 5-7 days. ALLERGIES: PENICILLIN. THE PATIENT WAS SEEN ON THE DAY OF DISCHARGE. DENIES ANY NEW COMPLAINTS. NO CHEST PAIN, SHORTNESS OF BREATH, PALPITATIONS, OR GI BLEEDING REPORTED. BRIEF HOSPITAL COURSE: The patient is a 62-year-old male with recent colonoscopy with polypectomy, presented to the emergency room with bright red blood per rectum. His workup was consistent with lower GI bleed. His hemoglobin on admission was 9.9. He received 1 unit of PRBC this hospitalization. His hemoglobin at discharge is 8.2. He was seen by Gastroenterology, Dr. Carmen. He underwent colonoscopy that showed multiple polypectomy sites without any active bleeding. There was one polypectomy site with a red spot in the base of the cecum. Hemoclips were placed. There were multiple white based ulcer without active bleeding noted scattered throughout the colon. He was advised to hold Plavix for a total of 10 days from [address] Fernando. I discussed with Dr. Carmen on the day of discharge, who recommended to restart Plavix in 5-7 days. His H and H has remained stable. He was monitored in the CCU due to significant hypotension. He was also seen by critical care, Dr. Luna. FINAL DIAGNOSES: 1. Lower gastrointestinal bleeding. 2. Recent colonoscopy with removal of 19 polyps. 3. Acute blood loss anemia status post 1 unit PRBC. 4. Tobacco dependence. 5. Hypotension, requiring CCU monitoring. 6. Coronary artery disease. 7. Diabetes mellitus type 2 with neuropathy. 8. Chronic diarrhea. 9. Diabetes mellitus type 2. 10. Obesity with a body mass index of 37. 11. Hypokalemia, replaced. 12. Acute kidney injury with creatinine 1.34 on admission and 0.8 at discharge. PLAN: Plan was discussed with the patient in detail. He stated understanding. Job ID: [id number]
== END 2018-10-09 16:30 | disposition home or self-care (01) | DRG 920 ==
LOC: ERS 19:56 → CCU 23:16 → SURG A 10-08 21:49
PROVIDERS: ADMIT Family Medicine; ATTEND Family Medicine
PROC: 30233N1 Transfusion of Nonautologous Red Blood Cells into Peripheral Vein, Percutaneous Approach (ICD-10-PCS; 2018-10-06)
PROC: 0W3P8ZZ Control Bleeding in Gastrointestinal Tract, Via Natural or Artificial Opening Endoscopic (ICD-10-PCS; principal; 2018-10-07)
DX: K91.840 Postprocedural hemorrhage of a digestive system organ or structure following a digestive system procedure (principal); D62 Acute posthemorrhagic anemia; N17.9 Acute kidney failure, unspecified; K86.1 Other chronic pancreatitis; F17.210 Nicotine dependence, cigarettes, uncomplicated; Z88.0 Allergy status to penicillin; I25.10 Atherosclerotic heart disease of native coronary artery without angina pectoris; E11.42 Type 2 diabetes mellitus with diabetic polyneuropathy; E66.9 Obesity, unspecified; Z68.37 Body mass index [BMI] 37.0-37.9, adult; E87.6 Hypokalemia; K52.9 Noninfective gastroenteritis and colitis, unspecified; Z95.5 Presence of coronary angioplasty implant and graft; I10 Essential (primary) hypertension; Z79.82 Long term (current) use of aspirin; Z79.01 Long term (current) use of anticoagulants; Z79.4 Long term (current) use of insulin; I25.2 Old myocardial infarction; E78.5 Hyperlipidemia, unspecified; F12.90 Cannabis use, unspecified, uncomplicated; K86.81 Exocrine pancreatic insufficiency
CPT/HCPCS: 36415; 36416; 36430; 80048; 80053; 82274; 82330; 82803; 83605; 85014; 85018; 85025; 85610; 85730; 86850; 86900; 86901; 93005; 96361; 96374; C9113; J0360; J1825; J1940; J2001; J2405; J2704; J3010; P9016

== ENCOUNTER 2019-06-23 12:01 | Day surgery (SDC) | payer MEDICARE ==
[2019-06-20 11:46] VITALS: BMI 38.5
[~2019-06-23 12:01] MED LIST: Lidocaine 1% PF 5 ML VIAL ONE; PROPOFOL 200 MG/20 ML VIAL ONE
[2019-06-23] MEDS ORDERED: Midazolam HCl 2 mg/2 ml Vial ONE (14:24)
[2019-06-23] MEDS ORDERED: Fentanyl 100 MCG/2 ML VIAL ONE (14:24)
--- NOTE | 2019-06-23 15:18 | MRI ---
MRI LUMBAR SPINE NONCONTRAST: HISTORY: Lumbar radiculopathy COMPARISON: None. FINDINGS: Appropriate T1 marrow signal intensity of the lumbar vertebrae. Lumbar spine vertebral body height is maintained. No fracture. No significant STIR hyperintensity to suggest vertebral body edema or ligamentous injury. Appropriate signal intensity of the paraspinal muscles. Appropriate signal intensity of the visualized solid organs. Conus medullaris terminates at the inferior aspect of L1. T12-L1:Adequate disc hydration. No significant central canal stenosis or significant neural foraminal narrowing. L1-L2:Adequate disc hydration. Mild loss of disc space height. Broad-based disc bulge, ligament flavu m thickening and facet hypertrophy result in mild to moderate central canal stenosis. Mild bilateral neural foraminal narrowing. L2-L3:L2-L3: Adequate disc hydration. No significant loss of disc space height. Broad-based disc bulg e, ligament flavum thickening and facet hypertrophy result in mild central canal stenosis. Mild bilateral neural foraminal narrowing. L3-L4:Disc desiccation without significant loss of disc space height. Broad-based disc bulge, ligamen t flavum thickening and facet hypertrophy result in mild to moderate central canal stenosis. Narrowing of both subarticular zones. Partial obscuration of bilateral traversing L4 nerve roots. The re is fluid in both facet joints. Mild right and left foraminal narrowing. L4-L5:Adequate disc hydration. No significant loss of disc space height. Broad-based disc bulge, liga ment flavum thickening and facet hypertrophy result in mild central canal stenosis. Narrowing of both subarticular zones, left greater than right. Mass effect without obscuration of bilateral tiffany sing L5 nerve roots. There is fluid in both facet joints. Mild to moderate bilateral neural foraminal narrowing. L5-S1:Disc desiccation without severe loss of disc space height. Central/left subarticular disc protr usion. No significant stenosis of the thecal sac. There is also disc material in the right subarticular zone. Partial obscuration of the traversing right S1 nerve root. Near complete obscurati on of the traversing left S1 nerve root. Moderate right neural foraminal narrowing. Moderate to severe left neural foraminal narrowing. Fluid in both facet joints along with bilateral facet hypertr ophy. IMPRESSION: Degenerative change of the lumbar spine as detailed above. Transcribed Date/Time: 06/23/2019 3:32 PM
== END 2019-06-23 16:55 | disposition home or self-care (01) ==
LOC: SDC/OP 12:01
PROVIDERS: ATTEND Orthopaedic Surgery
DX: M51.16 Intervertebral disc disorders with radiculopathy, lumbar region (principal); M48.062 Spinal stenosis, lumbar region with neurogenic claudication; I11.0 Hypertensive heart disease with heart failure; I50.9 Heart failure, unspecified; E11.9 Type 2 diabetes mellitus without complications; M17.0 Bilateral primary osteoarthritis of knee; F17.210 Nicotine dependence, cigarettes, uncomplicated; Z79.82 Long term (current) use of aspirin; Z79.02 Long term (current) use of antithrombotics/antiplatelets; Z79.4 Long term (current) use of insulin; Z88.0 Allergy status to penicillin
CPT/HCPCS: 72148; J2001; J2250; J2704; J3010

== ENCOUNTER 2019-08-04 13:02 | Inpatient (IN) | payer MEDICARE ==
[2019-08-04] MEDS ORDERED: Rocuronium Bromide 10 MG/ML (10ML VIAL) ONE ×2 (13:16→13:17)
[2019-08-04] MEDS ORDERED: Ketamine 50 MG/ML (10ML VIAL) ONE (13:16)
[2019-08-04] MEDS ORDERED: fentaNYL Citrate/PF 2,000 MCG in Sodium Chloride 0.9% 60 ML IV SCH (13:29)
[2019-08-04 13:43] LABS: #Lymphocytes 0.5 thou/uL (1.20-3.40); #Monocytes 0.4 thou/uL (0.11-0.59); #Neutrophils 15.6 thou/uL (1.40-6.50); %Basophils 0.1 % (0.0-1.0); %Eosinophils 0.3 % (0.0-10.0); %Monocytes 2.3 % (0.0-10.0); %Neutrophils 94.4 % (42.0-75.0); Hemoglobin 13.4 g/dL (14.0-18.0); Mean Corpuscular HGB CONC 31.1 g/dL (32.0-36.0); Mean Corpuscular Hemoglobin 27.2 pg (27.0-31.0); Mean Corpuscular Volume 87.4 fL (78.0-98.0); Mean Platelet Volume 7.4 fL (7.4-10.4); Platelet Count 314 thou/uL (130-400); RBC Distribution Width 17.2 % (11.5-14.5); Red Blood Cell (RBC) Count 4.93 mill/uL (4.70-6.10); White Blood Cell (WBC) Count 16.5 thou/uL (4.8-10.8)
[2019-08-04] MEDS ORDERED: Norepinephrine 8 MG/0.9% NS 250 ML ONE (13:43)
--- NOTE | 2019-08-04 13:47 | RAD ---
PORTABLE CHEST: Date: 08/04/19 HISTORY: Intubation. COMPARISON: None. FINDINGS: Heart size is enlarged. Endotracheal and NG tubes are in satisfactory position. Pulmonary vessels are mildly engorged. Increased retrocardiac density difficult to assess on this supine film. There is at electasis in the right base. IMPRESSION: 1. Cardiomegaly with some mild vascular prominence, but no overt edema. Bibasilar atelectatic lung c hanges are seen. 2. Endotracheal and NG tubes in satisfactory position. POS: [facility]
[2019-08-04 13:51] LABS: Actual Bicarbonate (HCO3a) 35.3 mEq/L (22-28); Analyzer IN Cardio ER; Base Excess (BEa) 5.3 mEq/L (-2.0 to +3.0); Potassium - ABG Lab 3.37 mmol/L (3.70-5.30)
[2019-08-04 13:53] LABS: pH, Arterial 7.25 (7.35-7.45)
[2019-08-04 13:54] LABS: CO2 Tension 82.3 mmHg (35.0-45.0); O2 Tension (PaO2) 49.8 mmHg (> 80.0)
[2019-08-04 13:55] LABS: ALV-art Gradient 560.325 (0-20)
[2019-08-04 13:58] LABS: ALT (SGPT) 89 U/L (8-55); AST (SGOT) 106 U/L (5-34); Albumin 3.9 g/dL (3.4-4.8); Alkaline Phosphatase 115 U/L (40-110); Anion Gap 15 mmol/L (10-20); BUN (Urea Nitrogen) 20 mg/dL (8.4-25.7); Bilirubin, Total 0.5 mg/dL (0.2-1.2); CK (CPK) 811 U/L (30-200); Calc. Creatinine Clearance 0 mL/min (70-130); Calcium 8.7 mg/dL (7.8-10.44); Carbon Dioxide 34 mmol/L (23-31); Chloride 98 mmol/L (98-107); Estimated GFR-MDRD 44; Globulin 2.9 g/dL (2.4-3.5); Glucose 261 mg/dL (80-115); Potassium 3.6 mmol/L (3.5-5.1); Protein, Total 6.8 g/dL (5.8-8.1); Sodium 143 mmol/L (136-145)
[2019-08-04 14:02] LABS: Bilirubin Negative (Negative); Blood, Urine 3+ (Negative); Clarity Turbid (Clear); Glucose, Urine (Dipstick) 30 mg/dL (Negative); Leukocyte Negative Leu/uL (Negative); Nitrite Negative (Negative); Protein, Urine (Dipstick) 200 mg/dL (Neg-Trace); RBC/HPF Greater than 50 HPF (0-3); Squamous Epithelial 0-3 HPF (0-3); Urobilinogen Normal mg/dL (Less than 2); WBC/HPF 21-50 HPF (0-3)
[2019-08-04] MEDS ORDERED: cefTRIAXone\\ROCEPHIN 2 GM VIAL ONE (14:19)
[2019-08-04 14:23] LABS: Bacteria/HPF 1+ HPF (None Seen); Yeast-Budding None Seen HPF (None Seen)
[2019-08-04] MEDS ORDERED: Ventilator Sedation Protocol 1 EACH FS ONE (16:26)
[2019-08-04] MEDS ORDERED: CCU Electrolyte Replacement 1 EACH FS ONE (16:26)
[2019-08-04 16:28] LABS: Base Excess (BEa) 1.6 mEq/L (-2.0 to +3.0); CO2 Tension 45.7 mmHg (35.0-45.0); Calcium, Ionized 1.12 mmol/L (1.12-1.30); Carboxyhemoglobin (COHb) 1.4 gm% (0.0-3.0); Hemoglobin (Hb) 13.9 g/dL (14.0-18.0); O2 Tension (PaO2) 67.1 mmHg (> 80.0); Potassium - ABG Lab 3.35 mmol/L (3.70-5.30); pH, Arterial 7.39 (7.35-7.45)
[2019-08-04] MEDS ORDERED: Norepinephrine 8 MG/0.9% NS 250 ML IVPB SCH (16:30)
[2019-08-04 16:31] LABS: Puncture Site RRA
[2019-08-04 16:32] LABS: ALV-art Gradient 588.775 (0-20)
[2019-08-04] MEDS ORDERED: Dextrose 50% Abboject 50 ML SYRINGE SLOW IVP PRN (16:55)
[2019-08-04] MEDS ORDERED: Dextrose 5% in Water 1,000 ML IV PRN (16:55)
[2019-08-04] MEDS ORDERED: Acetaminophen 650 MG/20.3 ML UDCUP PER TUBE PRN (16:56)
--- NOTE | 2019-08-04 17:18 | PDOC.HHP ---
Hospitalist HPI - History of Present Illness Shortness of breath History of Present Illness: Mr Hitchcock is 63 y/o male with h/o CAD s/p stents, COPD, Hypertension and chronic smoker who presented to [place] ED due to SOB. Patient had been feeling ill for 2 days including SOB, AMS and fever. He was noted to be even more lethargic last night. He was noted to be in respiratory failure upon arrival to [facility] and intubation was done using I-Gel after multiple unsuccessful attempts. Patient coded at the ED, for ~10 minutes (recorded by ED staff), no cardiac meds were given and ROSC was achieved. I-gel exchanged to endotracheal intubation in the ED. Hospitalist ROS - Review of Systems ROS unobtainable: due to endotracheal tube Hospitalist History - Past Medical History Cardiac: reports: CAD, HTN Pulmonary: reports: COPD, heart attack Gastrointestinal: reports: GI bleed Endocrine: reports: Diabetes - Past Surgical History Other Surgical History: Polypectomy Cardiac stents - Family History Family History: reports: diabetes mellitus - Social History Smoking Status: Current every day smoker Alcohol: reports: Occassional Living Situation: With Family Activity level: independent ambulation - Exam General Appearance: ill appearing Eye: anicteric sclera ENT: normocephalic atraumatic, no oropharyngeal lesions Neck: supple Heart: RRR, no murmur, no gallops Respiratory: wheezes Respiratory - other findings: Decreased breath sounds bilaterally Gastrointestinal: soft, non-tender Gastrointestinal - other findings: Obese Extremities: no edema Skin: normal turgor, no rashes Neurological - other findings: Unable to evaluate Musculoskeletal: no muscle wasting Psychiatric - other findings: Unable to evaluate Hospitalist Results - Labs Result Diagrams: 08/04/19 13:14 08/04/19 13:14 Lab results: WBC 16.5 thou/uL (4.8-10.8) H 08/04/19 13:14 Hgb 13.4 g/dL (14.0-18.0) L 08/04/19 13:14 Hct 43.1 % (42.0-52.0) 08/04/19 13:14 MCV 87.4 fL (78.0-98.0) 08/04/19 13:14 Plt Count 314 thou/uL (130-400) 08/04/19 13:14 Neutrophils % 94.4 % (42.0-75.0) H 08/04/19 13:14 ABG pH 7.39 (7.35-7.45) 08/04/19 16:24 ABG pCO2 45.7 mmHg (35.0-45.0) H 08/04/19 16:24 ABG pO2 67.1 mmHg (> 80.0) 08/04/19 16:24 Sodium 143 mmol/L (136-145) 08/04/19 13:14 Potassium 3.6 mmol/L (3.5-5.1) 08/04/19 13:14 Chloride 98 mmol/L (98-107) 08/04/19 13:14 Carbon Dioxide 34 mmol/L (23-31) H 08/04/19 13:14 BUN 20 mg/dL (8.4-25.7) 08/04/19 13:14 Creatinine 1.60 mg/dL (0.7-1.3) H 08/04/19 13:14 Glucose 261 mg/dL (80-115) H 08/04/19 13:14 Lactic Acid 1.1 mmol/L (0.5-2.2) 08/04/19 13:14 Calcium 8.7 mg/dL (7.8-10.44) 08/04/19 13:14 Total Bilirubin 0.5 mg/dL (0.2-1.2) 08/04/19 13:14 AST 106 U/L (5-34) H 08/04/19 13:14 ALT 89 U/L (8-55) H 08/04/19 13:14 Alkaline Phosphatase 115 U/L (40-110) H 08/04/19 13:14 Creatine Kinase 811 U/L (30-200) H 08/04/19 13:14 CK-MB (CK-2) 8.0 ng/mL (0-6.6) H* 08/04/19 13:14 Troponin I 0.150 ng/mL (< 0.028) H 08/04/19 13:14 Serum Total Protein 6.8 g/dL (5.8-8.1) 08/04/19 13:14 Albumin 3.9 g/dL (3.4-4.8) 08/04/19 13:14 Urine Ketones Negative mg/dL (Negative) 08/04/19 13:23 Urine Blood 3+ (Negative) A 08/04/19 13:23 Urine Nitrite Negative (Negative) 08/04/19 13:23 Ur Leukocyte Esterase Negative Sushil/uL (Negative) 08/04/19 13:23 Urine RBC Greater than 50 HPF (0-3) A 08/04/19 13:23 Urine WBC 21-50 HPF (0-3) A 08/04/19 13:23 Ur Squamous Epith Cells 0-3 HPF (0-3) 08/04/19 13:23 Urine Bacteria 1+ HPF (None Seen) A 08/04/19 13:23 - Radiology Interpretation Chest x-ray Status: report reviewed by me Hospitalist H&P A/P - Plan Plan: Mr Hitchcock is 63 y/o male pw respiratory failure. #Acute respiratory failure- Hypoxic; hypercapneic. Resp acidosis. -multifactorial. COPD exacerbation secondary to resp infection. -Intubated and mechanically ventilated on AC mode -Defer SBT and vent management to community center coordinator. # Influenza A- influenza swab is positive -Tamiflu initiated #Septic shock- secondary to respiratory infection. -requiring vasopressor to maintain MAP >65 -Multiorgan failure; Lactic acid is unremarkable. -continue tamiflu. Levofloxacin empirically to cover bacteria etiology -monitor urine ouput -cultures ordered. #UDAY- prerenal azotemia secondary shock. Urine studies. -maintain perfusion -Monitor urine output. -avoid nephrotoxins. -CK also elevated. -IV hydratoin #Transaminitis- No prior history. Likely due to shock - trend LFT #Elevated cardiac enzyme- rule out ACS. Likely type II RI due to shock. -trend troponin -EKG; consider echocardiography -aspirin. #Hypercapnic encephalopathy- now intubated. CO2 to improve with ventilator. #DM- check hgba1c. BG Q6hr and cover with ISS DVT ppx- lovenox GI ppx- pepcid Patient is full code, dw spouse at bedside who is also NOK.
[2019-08-04 17:33] LABS: #Basophils 0.1 thou/uL (0.0-0.2); #Lymphocytes 0.4 thou/uL (1.20-3.40); #Monocytes 0.3 thou/uL (0.11-0.59); #Neutrophils 11.5 thou/uL (1.40-6.50); %Basophils 0.7 % (0.0-1.0); %Eosinophils 0.2 % (0.0-10.0); %Monocytes 2.2 % (0.0-10.0); Hemoglobin 12.7 g/dL (14.0-18.0); Mean Corpuscular HGB CONC 32.3 g/dL (32.0-36.0); Mean Corpuscular Hemoglobin 27.9 pg (27.0-31.0); Mean Corpuscular Volume 86.2 fL (78.0-98.0); Mean Platelet Volume 7.5 fL (7.4-10.4); Platelet Count 266 thou/uL (130-400); Red Blood Cell (RBC) Count 4.54 mill/uL (4.70-6.10); White Blood Cell (WBC) Count 12.2 thou/uL (4.8-10.8)
[2019-08-04] MEDS: Sodium Chloride 0.9% 1,000 ML IV SCH (17:40)
[2019-08-04] MEDS ORDERED: Potassium Phosphate 15 MMOL in Sodium Chloride 0.9% 250 ML 250 ML IV PRN (17:43)
[2019-08-04] MEDS ORDERED: Magnesium 2 GM/50 ML 2 GM in Premix Bag 1 BAG IVPB PRN (17:43)
[2019-08-04] MEDS ORDERED: Potassium Chloride 20 MEQ TAB PO PRN (17:43)
[2019-08-04] MEDS ORDERED: Magnesium Oxide 400 MG TAB PO PRN ×2 (17:43)
[2019-08-04] MEDS ORDERED: Potassium Chloride 40 MEQ in Premix Bag 1 BAG IVPB PRN (17:43)
[2019-08-04] MEDS ORDERED: Potassium Phosphate 9 MMOL in Sodium Chloride 0.9% 100 ML IVPB PRN (17:43)
[2019-08-04] MEDS ORDERED: PHOS-NAK 1 PKT PACK PO PRN ×2 (17:43)
[2019-08-04] MEDS ORDERED: Potassium Phosphate 12 MMOL in Sodium Chloride 0.9% 250 ML 250 ML IV PRN (17:43)
[2019-08-04] MEDS ORDERED: Potassium Chloride 40 MEQ in Sodium Chloride 0.9% 250 ML 250 ML IVPB PRN (17:43)
[2019-08-04] MEDS ORDERED: CCU ELECTROLYTE REPLACEMENT PROTOCOL FS PRN (17:43)
[2019-08-04 17:44] LABS: INR-International Normal Ratio 1.2; PTT 27.9 SEC (22.9-36.1); Prothrombin Time 15.1 SEC (12.0-14.7)
[2019-08-04] MEDS ORDERED: Sodium Chloride 0.9% (PF) 10 ML VIAL FS PRN (17:44)
[2019-08-04] MEDS ORDERED: Propofol BOLUS 1,000 MG/100 ML VIAL IV PRN (17:45)
[2019-08-04] MEDS ORDERED: Fentanyl BOLUS 250 ML IVPB PRN (17:45)
[2019-08-04] MEDS ORDERED: DISCONTINUE PREVIOUS NARCOTIC PAIN MEDICATIONS AND BENZODIAZEPINES FS SCH (17:45)
[2019-08-04] MEDS ORDERED: Morphine 2 MG/ML SYRINGE SLOW IVP PRN (17:45)
[2019-08-04 17:50] LABS: Lactic Acid 2.3 mmol/L (0.5-2.2)
[2019-08-04 17:55] LABS: Anion Gap 15 mmol/L (10-20); BUN (Urea Nitrogen) 23 mg/dL (8.4-25.7); Calc. Creatinine Clearance 0 mL/min (70-130); Calcium 8.6 mg/dL (7.8-10.44); Carbon Dioxide 32 mmol/L (23-31); Chloride 99 mmol/L (98-107); Estimated GFR-MDRD 39; Glucose 292 mg/dL (80-115); Magnesium 1.4 mg/dL (1.6-2.6); Phosphorus 3.8 mg/dL (2.3-4.7); Potassium 3.3 mmol/L (3.5-5.1); Sodium 143 mmol/L (136-145)
[2019-08-04 17:58] LABS: Troponin I 0.219 ng/mL (< 0.028)
[2019-08-04] MEDS ORDERED: ALL FLUIDS SHOULD BE DEXTROSE FREE IF POSSIBLE FS SCH (18:00)
[2019-08-04] MEDS ORDERED: Vecuronium 10 MG VIAL IV PRN (18:00)
[2019-08-04] MEDS ORDERED: DO NOT USE PRE-EXISTING LYTE PROTOCOL FS SCH (18:00)
--- NOTE | 2019-08-04 18:25 | RAD ---
FRONTAL VIEW CHEST: Comparison: 08-04-19 Indication: Respiratory failure. FINDINGS: There is enlargement of the cardiac silhouette and pulmonary vasculature. Bilateral opacities are see n at each lower lung zone and pleural based densities are present. Partially imaged supportive lines and tubes are present, difficult to reliably delineate due to technique. IMPRESSION: Prominent cardiac silhouette and pulmonary vasculature which may be on the basis of decompensated CHF . Superimposed portal fluid is suspected. Recommend continued imaging follow up. POS: [facility]
[2019-08-04] MEDS: Propofol 1,000 MG/100 ML VIAL IV PRN (18:42)
[2019-08-04] MEDS: methylPREDNISolone Sod Succ 40 MG VIAL IVP SCH ×2 (18:42→23:52)
--- NOTE | 2019-08-04 18:51 | CON ---
DATE OF CONSULTATION: 08/04/2019 CONSULTING PHYSICIAN: Rickist . REASON FOR CONSULTATION: Respiratory failure, requiring mechanical ventilation. HISTORY OF PRESENT ILLNESS: This patient has been seen by Dr. Luna in our group previously. The patient presented to the [place] [facility] via his family. He has been ill for the last 48 hours. His said he became short of breath on Sunday. Yesterday, he began running a fever up to 103 degrees with increasing respiratory distress. He was taken to [place]. He was initially tried on CPAP. The documentation they sent over is not too good. The family indicates that the ER staff had trouble with intubation. The patient had a very short period of cardiac arrest, where he had to have chest compressions. They do not feel like this was more than a few seconds. He was intubated with a Combi tube and sent over here, where it was later changed out to a standard endotracheal tube. PAST MEDICAL HISTORY: 1. Diabetes mellitus, requiring insulin. 2. Coronary artery disease. 3. Hypertension. 4. Hyperlipidemia. 5. Pancreatitis. 6. Nephrolithiasis. 7. COPD. 8. Chronic diarrhea. PAST SURGICAL HISTORY: Coronary stents and colon polypectomy. MEDICATIONS: Prior to admission not known at this time. Per previous admissions, he has been on; 1. Hydralazine. 2. Lyrica. 3. Benicar. 4. Lopressor. 5. Cozaar. 6. NovoLog insulin. 7. Creon tablets. 8. Lunesta. 9. Trulicity. 10. Clopidogrel. 11. Lipitor. 12. Aspirin. 13. Acetaminophen with codeine. FAMILY MEDICAL HISTORY: Unremarkable. SOCIAL HISTORY: Smokes a pack per day. Does not consume alcohol. Apparently, occasionally uses marijuana. ALLERGIES: PENICILLIN CAUSES ANAPHYLAXIS. REVIEW OF SYSTEMS: Cannot be obtained at this time, he is currently intubated. PHYSICAL EXAMINATION: VITAL SIGNS: Temperature 99, pulse 95, blood pressure 155/90, O2 saturation 92%, and respiratory rate 25. GENERAL: He is a disheveled-appearing gentleman. He is intubated orally. He has an NG tube in place. HEENT: He has an unkempt sumner. He has a laceration on his tongue. NECK: Without adenopathy or JVD. LUNGS: Clear anteriorly. CARDIOVASCULAR: S1 and S2. Regular. Slightly tachycardic. ABDOMEN: Obese, soft, and nontender. EXTREMITIES: He has a right groin femoral central line. He has tinea cruris in his inguinal folds. No clubbing, cyanosis, or edema. NEUROLOGIC: Difficult to assess because he is currently paralyzed with vecuronium from the ER. LABORATORY DATA: Sodium 143, potassium 3.6, chloride 98, CO2 of 34, BUN 20, creatinine 1.6, glucose 261, AST 106, and ALT 89. CPK 811. Alkaline phosphatase 115. Troponin 0.15. Albumin 3.9. Urinalysis shows 21 to 50 white blood cells and greater than 50 red blood cells. A pH is 7.25, pCO2 is 82, and pO2 of 49. The ABG was subsequently repeated once he got to the CCU and pH was 7.30, pCO2 was in the 40s, and pO2 was in the 60s. White blood cell count 16.5, hematocrit 43.1, and platelet count 314. His x-ray shows cardiomegaly without evidence of mass, effusion, or infiltrate. His influenza was positive for type A flu. ASSESSMENT: 1. Type A flu. 2. Sepsis syndrome. 3. Acute respiratory failure requiring mechanical ventilation. 4. Status post brief cardiac arrest. 5. History of insulin-dependent diabetes mellitus, coronary artery disease, obesity, tobacco abuse, and chronic obstructive pulmonary disease. PLAN: 1. The patient has been started on IV antibiotics. I will continue on vancomycin and Levaquin, given his penicillin allergy. 2. I have added vitamin C and thiamine for sepsis syndrome. 3. I will continue the steroids that have been started in the emergency room. 4. Add Tamiflu. 5. He has been weaned off the Levophed drip. He will be hydrated more aggressively. 6. Protonix for GI prophylaxis. 7. Enoxaparin for DVT prophylaxis. 8. I spoke with family and updated them on the patient's serious condition. Job ID: [id number]
[2019-08-04] MEDS: Lorazepam 2 MG/ML VIAL SLOW IVP PRN ×2 (18:54→22:13)
[2019-08-04] MEDS: Vancomycin HCl 1 GM in Premix Bag 1 BAG IVPB SCH (21:19)
[2019-08-04] MEDS: Famotidine/PF 20 mg/2ml Vial SLOW IVP SCH (21:19)
[2019-08-04] MEDS: HumaLOG 300 UNITS/3 ML VIAL SC PRN ×2 (21:19→23:59)
[2019-08-04] MEDS: Oseltamivir 6 MG/ML ORAL SUSP PER TUBE SCH (21:20)
[2019-08-05] MEDS: Sodium Chloride 0.9% 1,000 ML IV SCH ×2 (03:10→12:01)
[2019-08-05] MEDS: Lorazepam 2 MG/ML VIAL SLOW IVP PRN ×2 (04:05→21:32)
[2019-08-05 04:18] LABS: #Lymphocytes 0.4 thou/uL (1.20-3.40); #Monocytes 0.6 thou/uL (0.11-0.59); #Neutrophils 10.4 thou/uL (1.40-6.50); %Lymphocytes 3.5 % (21.0-51.0); %Monocytes 4.8 % (0.0-10.0); %Neutrophils 91.6 % (42.0-75.0); Hemoglobin 11.6 g/dL (14.0-18.0); Mean Corpuscular HGB CONC 32.2 g/dL (32.0-36.0); Mean Corpuscular Hemoglobin 27.7 pg (27.0-31.0); Mean Corpuscular Volume 85.8 fL (78.0-98.0); Mean Platelet Volume 7.7 fL (7.4-10.4); Platelet Count 257 thou/uL (130-400); White Blood Cell (WBC) Count 11.4 thou/uL (4.8-10.8)
[2019-08-05] MEDS: HumaLOG 300 UNITS/3 ML VIAL SC PRN ×4 (04:23→17:25)
[2019-08-05 04:39] LABS: ALT (SGPT) 58 U/L (8-55); AST (SGOT) 47 U/L (5-34); Albumin 3.3 g/dL (3.4-4.8); Alkaline Phosphatase 86 U/L (40-110); Anion Gap 12 mmol/L (10-20); BUN (Urea Nitrogen) 34 mg/dL (8.4-25.7); Bilirubin, Total 0.4 mg/dL (0.2-1.2); Calc. Creatinine Clearance 66 mL/min (70-130); Calcium 8.3 mg/dL (7.8-10.44); Carbon Dioxide 33 mmol/L (23-31); Chloride 101 mmol/L (98-107); Estimated GFR-MDRD 29; Globulin 2.6 g/dL (2.4-3.5); Glucose 283 mg/dL (80-115); Magnesium 1.4 mg/dL (1.6-2.6); Phosphorus 2.5 mg/dL (2.3-4.7); Potassium 3.1 mmol/L (3.5-5.1); Protein, Total 5.9 g/dL (5.8-8.1); Sodium 143 mmol/L (136-145)
[2019-08-05] MEDS: methylPREDNISolone Sod Succ 40 MG VIAL IVP SCH ×3 (05:37→18:18)
[2019-08-05 07:23] LABS: Actual Bicarbonate (HCO3a) 29.8 mEq/L (22-28); Base Excess (BEa) 3.5 mEq/L (-2.0 to +3.0); CO2 Tension 52.2 mmHg (35.0-45.0); Calcium, Ionized 1.11 mmol/L (1.12-1.30); Hemoglobin (Hb) 12.6 g/dL (14.0-18.0); O2 Tension (PaO2) 77.9 mmHg (> 80.0); Potassium - ABG Lab 3.15 mmol/L (3.70-5.30); pH, Arterial 7.37 (7.35-7.45)
[2019-08-05 07:25] LABS: Puncture Site LBA
[2019-08-05] MEDS: Pantoprazole 40 MG VIAL IVP SCH (09:34)
[2019-08-05] MEDS: Oseltamivir 6 MG/ML ORAL SUSP PER TUBE SCH ×2 (09:34→22:10)
[2019-08-05] MEDS: Enoxaparin Sodium 40 MG/0.4 ML SYRINGE SC SCH (09:34)
[2019-08-05] MEDS: Vancomycin HCl 1 GM in Premix Bag 1 BAG IVPB SCH ×2 (09:35→21:32)
[2019-08-05] MEDS: Propofol 1,000 MG/100 ML VIAL IV PRN ×3 (10:14→21:40)
[2019-08-05 10:29] LABS: Actual Bicarbonate (HCO3a) 30.1 mEq/L (22-28); Base Excess (BEa) 4.5 mEq/L (-2.0 to +3.0); CO2 Tension 48.5 mmHg (35.0-45.0); Calcium, Ionized 1.08 mmol/L (1.12-1.30); Carboxyhemoglobin (COHb) 0.6 gm% (0.0-3.0); Hemoglobin (Hb) 12.5 g/dL (14.0-18.0); Potassium - ABG Lab 3.06 mmol/L (3.70-5.30); pH, Arterial 7.41 (7.35-7.45)
[2019-08-05 10:35] LABS: ALV-art Gradient 243.475 (0-20); O2 Tension (PaO2) 52.4 mmHg (> 80.0); Puncture Site LRA
--- NOTE | 2019-08-05 10:37 | RAD ---
PORTABLE CHEST: HISTORY: Pneumonia followup. COMPARISON: 08/04/2019. ET tube and NG Tube remain in place. Mild cardiomegaly is stable. Vasculature upper normal but stab le. Small effusions and mild left basilar atelectasis again noted. IMPRESSION: No significant change from yesterday. POS: [facility]
--- NOTE | 2019-08-05 10:44 | PRG ---
DATE OF SERVICE: 08/05/2019 SUBJECTIVE: Mr. Hitchcock is stable, awake on ventilator. OBJECTIVE: VITAL SIGNS: BP stable, heart rate is 90, respiratory rate is in the teens, oximetry is 98. HEAD AND NECK: Unremarkable other than him having a dishevelled long sumner. LUNGS: Remarkable for coarse equal breath sounds. HEART: Regular rhythm. S1, S2 normal. ABDOMEN: Soft and nontender. EXTREMITIES: Without clubbing, cyanosis, or edema. LABORATORY DATA: PH 7.37, CO2 of 52, pO2 of 77. Sodium 143, potassium 3.1, chloride 101, bicarb 33, BUN 34, creatinine 2.29, glucose 283. White count 11.4 , hemoglobin 11.6, platelets 257. Chest radiograph shows no alveolar infiltrates. IMPRESSION: 1. Status post emergency department arrest while intubation, was being attempted. 2. Obesity, likely with obesity hypoventilation. 3. Chronic obstructive pulmonary disease with very little clinical bronchospasm at this time. 4. Coronary artery disease. 5. History of diabetes. 6. Information Officer e very unimpressive chest radiograph. Thromboembolic disease is low on the list of possible problems, but is still in the differential. I have turned his FiO2 down to 50%. We will turn his rate down to 20, and continue to try to wean from mechanical ventilation. 7. We will continue antimicrobial therapy, vitamin C protocol, nebulizer treatments, steroids. 8. His potassium needs to be replaced. We will likely be slow given his size, but we maybe surprised there may be significant improvement in next 24 to 48 hours. 9. Microbiology is reviewed. No cultures are positive so far. His influenza flu swab was positive, but this is more than just influenza. CRITICAL CARE TIME: 30 minutes. Job ID: [id number] MTDD
[2019-08-05] MEDS: Famotidine/PF 20 mg/2ml Vial SLOW IVP SCH (10:59)
[2019-08-05] MEDS ORDERED: Magnesium 2 GM/50 ML 2 GM in Premix Bag 1 BAG IVPB SCH (11:15)
[2019-08-05] MEDS ORDERED: Potassium Chloride 20 MEQ/100 ML PREMIX BAG IVPB SCH (11:15)
[2019-08-05] MEDS ORDERED: NPH, Human Insulin Isophane 300 UNIT/3 ML VIAL SC SCH ×2 (13:30→21:00)
--- NOTE | 2019-08-05 20:27 | PDOC.HOSPP ---
- Subjective Encounter Date: 08/05/19 Encounter Time: 20:00 non-verbal Subjective: Patient seen and examined for Sepsis. On [facility] Vent. No overnight events - Objective Vital Signs & Weight: Vital Signs (12 hours) Temp Pulse Resp BP 08/05/19 18:55 85 134/73 08/05/19 18:00 28 H 08/05/19 16:00 98.6 F 28 H 08/05/19 15:01 87 08/05/19 14:00 28 H 08/05/19 13:42 98 08/05/19 12:00 98.9 F 28 H 08/05/19 10:32 94 08/05/19 10:00 28 H Weight Admit Weight 304 lb Weight 304 lb 3.806 oz Most Recent Monitor Data Heart Rate from ECG 86 NIBP 133/69 NIBP BP-Mean 87 Respiration from ECG 28 SpO2 94 I&O: 08/04/19 08/05/19 08/06/19 06:59 06:59 06:59 Intake Total 1525.3 1667 Output Total 760 350 Balance 765.3 1317 Result Diagrams: 08/05/19 03:12 08/05/19 03:12 Additional Labs: Accuchecks 08/05/19 08/05/19 08/05/19 20:10 17:18 12:23 POC Glucose 235 H 229 H 272 H 08/05/19 08/05/19 08/04/19 09:35 03:58 23:59 POC Glucose 250 H 268 H 290 H 08/04/19 20:06 POC Glucose 283 H Radiology Reviewed by me: Yes (CXR - no new changes) EKG Reviewed by me: Yes (Tele SR) Hospitalist ROS - Review of Systems ROS unobtainable: due to endotracheal tube - Medication Medications: Active Medications Generic Name Dose Route Start Last Admin Trade Name Freq PRN Reason Stop Dose Admin Albuterol/Ipratropium 3 ml 08/04/19 18:30 08/05/19 18:54 Duoneb NEB 3 ml [id number] CONNOR Administration Enoxaparin Sodium 40 mg 08/05/19 09:00 08/05/19 09:34 Lovenox SC 40 mg 0900 CONNOR Administration Fentanyl Citrate 2,000 mcg/ 100 mls @ 0 mls/hr 08/04/19 13:29 08/05/19 08:43 Sodium Chloride IV 09/03/19 13:29 100 mls INF CONNOR Administration Protocol Per Protocol Sodium Chloride 1,000 mls @ 100 mls/hr 08/04/19 16:30 08/05/19 12:01 Normal Saline 0.9% IV 1,000 mls .Q10H CONNOR Administration Ascorbic Acid 1,500 mg/ Sodium 53 mls @ 100 mls/hr 08/04/19 18:00 08/05/19 18 :18 Chloride IVPB 08/08/19 18:01 53 mls Q6HR CONNOR Administration Levofloxacin 750 mg/ Device 150 mls @ 100 mls/hr 08/04/19 18:00 08/05/19 18: 19 IVPB 150 mls Q24HR CONNOR Administration Thiamine HCl 200 mg/ Sodium 52 mls @ 100 mls/hr 08/04/19 18:00 08/05/19 18:18 Chloride IVPB 52 mls 0600,1800 CONNOR Administration Vancomycin HCl 1 gm/ Device 200 mls @ 200 mls/hr 08/04/19 21:00 08/05/19 09: 35 IVPB 200 mls Q12HR CONNOR Administration Insulin Human Lispro 0 units 08/04/19 16:55 08/05/19 17:25 Humalog SC 6 unit .AGGRESSIVE SLIDING PRN Administration Aggressive Correctional Scale Lorazepam 2 mg 08/04/19 17:45 08/05/19 04:05 Ativan SLOW IVP 09/03/19 17:45 2 mg Q1H PRN Administration Breakthrough agitation Methylprednisolone Sodium Succinate 20 mg 08/04/19 18:00 08/05/19 18:18 Solu-Medrol IVP 20 mg Q6HR CONNOR Administration Oseltamivir Phosphate 75 mg 08/04/19 21:00 08/05/19 09:34 Tamiflu PER TUBE 75 mg BID CONNOR Administration Pantoprazole Sodium 40 mg 08/05/19 09:00 08/05/19 09:34 Protonix IVP 40 mg DAILY CONNOR Administration Propofol 1,000 mg 08/04/19 17:45 08/05/19 17:25 Diprivan IV 09/03/19 17:45 1,000 mg INF PRN Administration TO ACHIEVE GOAL RASS Protocol - Exam General Appearance: NAD (on Vent) General - other findings: on Levophed Heart: RRR, no gallops, no rubs Respiratory: no wheezes, normal chest expansion, rales, rhonchi Gastrointestinal: soft, non-distended, normal bowel sounds, no guarding, no rigidity Extremities: no cyanosis, no clubbing, no edema Psychiatric - other findings: Neuro/Psych - cannot assess due to sedation Hosp A/P - Plan respiratory therapy, DVT proph w/lovenox, DVT proph w/SCDs Acute hypoxic/hypercapneic respiratory failure Severe Sepsis/Septic shock due to Influenza A COPD excerbation s/p brief cardiac arrest at [place] [facility] Toxic Metabolic Encephalopathy Lactic acidosis DM2 with diabetic neuropathy CAD Morbid obesity BMI 40 Hypokalemia Hypomagnesemia UDAY Type 2 [place] (POA) - resolved Tobacco dep PCN allergy PLAN: Cont supportive care On Mechanical ventilation Cont IV Vanc/Levaquin/Tamiflu Cont IV steroids Add NPH Cont Agg sliding scale Replace electrolytes GI/DVT prophylaxis ABG/labs in AM CXR in AM Verify home meds Add low dose ASA
[2019-08-05 20:33] LABS: Vancomycin, Trough 18.1 ug/mL
[2019-08-05] MEDS: NPH, Human Insulin Isophane 300 UNIT/3 ML VIAL SC SCH (21:32)
[2019-08-05] MEDS: Nicotine 21 MG PATCH TD PRN (21:42)
[2019-08-06] MEDS: Propofol 1,000 MG/100 ML VIAL IV PRN ×6 (02:13→21:56)
[2019-08-06] MEDS: methylPREDNISolone Sod Succ 40 MG VIAL IVP SCH ×5 (02:13→23:20)
[2019-08-06] MEDS: Sodium Chloride 0.9% 1,000 ML IV SCH ×3 (02:17→20:34)
[2019-08-06 04:51] LABS: #Lymphocytes 0.5 thou/uL (1.20-3.40); #Monocytes 0.8 thou/uL (0.11-0.59); #Neutrophils 10.7 thou/uL (1.40-6.50); %Basophils 0.2 % (0.0-1.0); %Eosinophils 0.1 % (0.0-10.0); %Lymphocytes 4.4 % (21.0-51.0); %Monocytes 6.7 % (0.0-10.0); %Neutrophils 88.6 % (42.0-75.0); Hemoglobin 12.3 g/dL (14.0-18.0); Mean Corpuscular HGB CONC 32.7 g/dL (32.0-36.0); Mean Corpuscular Hemoglobin 27.5 pg (27.0-31.0); Mean Corpuscular Volume 84.3 fL (78.0-98.0); Mean Platelet Volume 7.8 fL (7.4-10.4); Platelet Count 303 thou/uL (130-400); RBC Distribution Width 17.7 % (11.5-14.5); Red Blood Cell (RBC) Count 4.45 mill/uL (4.70-6.10); White Blood Cell (WBC) Count 12.1 thou/uL (4.8-10.8)
[2019-08-06 05:08] LABS: Phosphorus 2.5 mg/dL (2.3-4.7)
[2019-08-06 05:09] LABS: ALT (SGPT) 47 U/L (8-55); AST (SGOT) 29 U/L (5-34); Albumin 3.4 g/dL (3.4-4.8); Alkaline Phosphatase 78 U/L (40-110); Anion Gap 15 mmol/L (10-20); BUN (Urea Nitrogen) 46 mg/dL (8.4-25.7); Bilirubin, Total 0.3 mg/dL (0.2-1.2); Calc. Creatinine Clearance 60 mL/min (70-130); Calcium 8.5 mg/dL (7.8-10.44); Carbon Dioxide 29 mmol/L (23-31); Chloride 103 mmol/L (98-107); Estimated GFR-MDRD 26; Globulin 2.8 g/dL (2.4-3.5); Glucose 227 mg/dL (80-115); Magnesium 2.1 mg/dL (1.6-2.6); Potassium 3.1 mmol/L (3.5-5.1); Protein, Total 6.2 g/dL (5.8-8.1); Sodium 144 mmol/L (136-145)
[2019-08-06] MEDS: HumaLOG 300 UNITS/3 ML VIAL SC PRN ×4 (06:24→20:51)
[2019-08-06 07:36] LABS: Actual Bicarbonate (HCO3a) 25.9 mEq/L (22-28); Base Excess (BEa) 1.9 mEq/L (-2.0 to +3.0); CO2 Tension 38.6 mmHg (35.0-45.0); Calcium, Ionized 1.14 mmol/L (1.12-1.30); Carboxyhemoglobin (COHb) 0.4 gm% (0.0-3.0); Hemoglobin (Hb) 12.2 g/dL (14.0-18.0); Potassium - ABG Lab 3.09 mmol/L (3.70-5.30); pH, Arterial 7.45 (7.35-7.45)
[2019-08-06 07:37] LABS: O2 Tension (PaO2) 59.1 mmHg (> 80.0); Puncture Site RRA
[2019-08-06] MEDS: Pantoprazole 40 MG VIAL IVP SCH (08:26)
[2019-08-06] MEDS: Oseltamivir 6 MG/ML ORAL SUSP PER TUBE SCH ×2 (08:26→20:50)
[2019-08-06] MEDS: Aspirin 81 mg Enteric Coated Tablet PER TUBE SCH (08:26)
[2019-08-06] MEDS: Enoxaparin Sodium 40 MG/0.4 ML SYRINGE SC SCH (08:26)
[2019-08-06] MEDS: NPH, Human Insulin Isophane 300 UNIT/3 ML VIAL SC SCH ×2 (08:27→20:50)
[2019-08-06] MEDS: Vancomycin HCl 1 GM in Premix Bag 1 BAG IVPB SCH (08:44)
[2019-08-06] MEDS: fentaNYL Citrate/PF 2,000 MCG in Sodium Chloride 0.9% 60 ML IV SCH (08:45)
--- NOTE | 2019-08-06 08:54 | RAD ---
PORTABLE CHEST: Date: 08/06/19 HISTORY: Pneumonia. COMPARISON: 08/05/19 exam. FINDINGS: Endotracheal and NG tubes are in satisfactory position. Heart size appears borderline. There is mild pulmonary vascular engorgement. Some increased parahilar lung markings, some of which could be techni que-related. No confluent infiltrative process. IMPRESSION: Cardiomegaly with mild vascular engorgement. No definite confluent infiltrative process. Slightly inc reased markings in the bases could be on the basis of some element of atelectasis. POS: OFF
[2019-08-06] MEDS ORDERED: Potassium Chloride 40 MEQ in Sodium Chloride 0.9% 250 ML 250 ML IVPB SCH (10:30)
--- NOTE | 2019-08-06 10:42 | PRG ---
DATE OF SERVICE: 08/06/2019 A 35 minutes of critical care time. SUBJECTIVE: The patient remains intubated on mechanical ventilation. There has been no acute changes overnight. OBJECTIVE: VITAL SIGNS: Temperature 98.8, pulse 83, blood pressure 142/80. A 24-hour intake 2657 and output 1040. HEENT: Unremarkable. NECK: No adenopathy or JVD. LUNGS: Coarse breath sounds. CARDIOVASCULAR: S1 and S2. Regular. ABDOMEN: Obese, soft, and nontender. EXTREMITIES: No edema. LABORATORY DATA: A pH of 7.45, pCO2 of 38, and pO2 of 59, that is on SIMV rate 20, tidal volume of 500, PEEP 10, pressure support 10, and FiO2 of 55%. White count 12.1, hematocrit 37.5, and platelet count 303. Sodium 144, potassium 3.1, chloride 103, CO2 of 29, BUN 46, creatinine 2.5, and glucose 227. X-ray actually is reasonably clear except maybe in the left base. ASSESSMENT: 1. Acute respiratory failure requiring mechanical ventilation. 2. Presumed pneumonia. 3. Hypoxemia out of proportion to what we are seeing on the x-ray. 4. Renal insufficiency, now making urine, but creatinine too high to perform CT pulmonary angio of the chest. 5. Type A flu. 6. Sepsis syndrome. 7. Status post brief cardiac arrest. PLAN: 1. The patient is not weanable at this time. I will get a Doppler of his lower extremities to make sure that we are not dealing with any type of DVT. At some point, a perfusion scan might be more appropriate. 2. Continue hydration. 3. Initiate tube feeds. 4. Continue insulin. 5. Not weanable at this time. Job ID: [id number]
--- NOTE | 2019-08-06 14:16 | ULT ---
US Venous Doppler Bilat HISTORY: Bilateral lower extremity pain and swelling. COMPARISON: None. FINDINGS: Real-time color Doppler evaluation the right and left lower extremities were performed from groin to calf. These included evaluation the common femoral superficial profundofemoral saphenous popliteal and trifurcation veins. On the right side bandages made it not possible to evaluate the rig ht common femoral vein region. Within the visualized deep venous system there is normal compressibility and augmentation. No signs f or DVT. IMPRESSION: No evidence of DVT of either lower extremity.
[2019-08-06] MEDS: Lorazepam 2 MG/ML VIAL SLOW IVP PRN ×2 (17:12→22:15)
[2019-08-06] MEDS ORDERED: NPH, Human Insulin Isophane 300 UNIT/3 ML VIAL SC SCH (18:36)
--- NOTE | 2019-08-06 18:42 | PDOC.HOSPP ---
- Subjective Encounter Date: 08/06/19 Encounter Time: 11:45 non-verbal Subjective: Patient seen and examined for Sepsis/Resp failure. On Vent. Off Levophed. No overnight events - Objective Vital Signs & Weight: Vital Signs (12 hours) Temp Pulse Resp BP Pulse Ox 08/06/19 18:00 28 H 08/06/19 16:00 98.1 F 28 H 08/06/19 15:45 81 141/85 H 08/06/19 15:42 76 28 H 97 08/06/19 14:00 28 H 08/06/19 12:00 28 H 08/06/19 11:45 98.7 F 08/06/19 10:41 88 141/85 H 08/06/19 10:38 75 28 H 97 08/06/19 10:00 28 H 08/06/19 08:00 98.8 F 08/06/19 07:31 94 L 08/06/19 07:21 28 H 08/06/19 07:06 88 139/58 L 08/06/19 07:04 92 28 H 95 Weight Admit Weight 304 lb Weight 299 lb 6.204 oz Most Recent Monitor Data Heart Rate from ECG 71 NIBP 145/89 NIBP BP-Mean 99 Respiration from ECG 28 SpO2 95 I&O: 08/05/19 08/06/19 08/07/19 06:59 06:59 06:59 Intake Total 1525.3 2657.1 1982 Output Total 760 1040 865 Balance 765.3 1617.1 1117 Result Diagrams: 08/06/19 04:28 08/06/19 04:28 Additional Labs: Accuchecks 08/06/19 08/06/19 08/06/19 17:01 14:12 08:34 POC Glucose 215 H 212 H 227 H 08/05/19 20:10 POC Glucose 235 H Radiology Reviewed by me: Yes (CXR - no new changes) EKG Reviewed by me: Yes (Tele ) Hospitalist ROS - Review of Systems ROS unobtainable: due to endotracheal tube - Medication Medications: Active Medications Generic Name Dose Route Start Last Admin Trade Name Freq PRN Reason Stop Dose Admin Albuterol/Ipratropium 3 ml 08/04/19 18:30 08/06/19 18:38 Duoneb NEB 3 ml [id number] CONNOR Administration Aspirin 81 mg 08/06/19 09:00 08/06/19 08:26 Ecotrin PER TUBE 81 mg DAILY CONNOR Administration Enoxaparin Sodium 40 mg 08/05/19 09:00 08/06/19 08:26 Lovenox SC 40 mg 0900 CONNOR Administration Sodium Chloride 1,000 mls @ 100 mls/hr 08/04/19 16:30 08/06/19 08:27 Normal Saline 0.9% IV 1,000 mls .Q10H CONNOR Administration Ascorbic Acid 1,500 mg/ Sodium 53 mls @ 100 mls/hr 08/04/19 18:00 08/06/19 17 :58 Chloride IVPB 08/08/19 18:01 53 mls Q6HR CONNOR Administration Levofloxacin 750 mg/ Device 150 mls @ 100 mls/hr 08/04/19 18:00 08/06/19 17: 59 IVPB 150 mls Q24HR CONNOR Administration Thiamine HCl 200 mg/ Sodium 52 mls @ 100 mls/hr 08/04/19 18:00 08/06/19 17:32 Chloride IVPB 52 mls 0600,1800 CONNOR Administration Fentanyl Citrate 2,000 mcg/ 100 mls @ 0 mls/hr 08/04/19 17:45 08/06/19 08:45 Sodium Chloride IV 09/03/19 17:45 100 mls INF CONNOR Administration Protocol Per Protocol Insulin Human Lispro 0 units 08/04/19 16:55 08/06/19 16:59 Humalog SC 6 unit .AGGRESSIVE SLIDING PRN Administration Aggressive Correctional Scale Lorazepam 2 mg 08/04/19 17:45 08/06/19 17:12 Ativan SLOW IVP 09/03/19 17:45 2 mg Q1H PRN Administration Breakthrough agitation Methylprednisolone Sodium Succinate 20 mg 08/04/19 18:00 08/06/19 17:32 Solu-Medrol IVP 20 mg Q6HR CONNOR Administration Nicotine 21 mg 08/05/19 20:24 08/05/19 21:42 Nicoderm Patch TD 21 mg Q24H PRN Administration Smoking cravings Oseltamivir Phosphate 75 mg 08/04/19 21:00 08/06/19 08:26 Tamiflu PER TUBE 75 mg BID CONNOR Administration Pantoprazole Sodium 40 mg 08/05/19 09:00 08/06/19 08:26 Protonix IVP 40 mg DAILY CONNOR Administration Propofol 1,000 mg 08/04/19 17:45 08/06/19 17:31 Diprivan IV 09/03/19 17:45 1,000 mg INF PRN Administration TO ACHIEVE GOAL RASS Protocol - Exam General - other findings: on Vent Heart: RRR, no gallops Respiratory: no wheezes, rales, rhonchi Gastrointestinal: soft, normal bowel sounds, no guarding, no rigidity Extremities: no edema Musculoskeletal - other findings: Neuro/Psych - cannot assess due to sedation Hosp A/P - Plan DVT proph w/lovenox, DVT proph w/SCDs Acute hypoxic/hypercapneic respiratory failure Severe Sepsis/Septic shock due to Influenza A COPD excerbation s/p brief cardiac arrest at [place] [facility] Toxic Metabolic Encephalopathy Lactic acidosis DM2 with diabetic neuropathy CAD Morbid obesity BMI 40 Hypokalemia Hypomagnesemia UDAY Type 2 [place] (POA) - resolved Tobacco dep PCN allergy PLAN: On Mechanical ventilation Resume Plavix Cont IV Vanc/Levaquin/Tamiflu/steroids Increase NPH to 35 units BID Cont Agg sliding scale Replace Potassium GI/DVT prophylaxis
[2019-08-07] MEDS: HumaLOG 300 UNITS/3 ML VIAL SC PRN ×7 (00:32→23:28)
[2019-08-07] MEDS: Propofol 1,000 MG/100 ML VIAL IV PRN ×3 (01:36→20:44)
[2019-08-07] MEDS: Nicotine 21 MG PATCH TD PRN (02:12)
[2019-08-07] MEDS: Sodium Chloride 0.9% 1,000 ML IV SCH ×2 (02:18→18:10)
[2019-08-07] MEDS: fentaNYL Citrate/PF 2,000 MCG in Sodium Chloride 0.9% 60 ML IV SCH ×2 (02:42→17:39)
[2019-08-07] MEDS: Lorazepam 2 MG/ML VIAL SLOW IVP PRN ×3 (03:06→23:19)
[2019-08-07 03:50] LABS: #Lymphocytes 0.5 thou/uL (1.20-3.40); #Monocytes 0.4 thou/uL (0.11-0.59); #Neutrophils 6.8 thou/uL (1.40-6.50); %Basophils 0.2 % (0.0-1.0); %Eosinophils 0.4 % (0.0-10.0); %Monocytes 4.6 % (0.0-10.0); %Neutrophils 87.7 % (42.0-75.0); Hemoglobin 12.3 g/dL (14.0-18.0); Mean Corpuscular HGB CONC 32.7 g/dL (32.0-36.0); Mean Corpuscular Hemoglobin 27.6 pg (27.0-31.0); Mean Corpuscular Volume 84.3 fL (78.0-98.0); Mean Platelet Volume 7.9 fL (7.4-10.4); Platelet Count 308 thou/uL (130-400); RBC Distribution Width 17.8 % (11.5-14.5); Red Blood Cell (RBC) Count 4.46 mill/uL (4.70-6.10); White Blood Cell (WBC) Count 7.7 thou/uL (4.8-10.8)
[2019-08-07 04:06] LABS: Phosphorus 2.6 mg/dL (2.3-4.7)
[2019-08-07 04:10] LABS: ALT (SGPT) 36 U/L (8-55); AST (SGOT) 20 U/L (5-34); Albumin 3.4 g/dL (3.4-4.8); Alkaline Phosphatase 73 U/L (40-110); Anion Gap 12 mmol/L (10-20); BUN (Urea Nitrogen) 44 mg/dL (8.4-25.7); Bilirubin, Total 0.3 mg/dL (0.2-1.2); Calc. Creatinine Clearance 81 mL/min (70-130); Calcium 8.5 mg/dL (7.8-10.44); Carbon Dioxide 30 mmol/L (23-31); Chloride 106 mmol/L (98-107); Estimated GFR-MDRD 38; Globulin 2.8 g/dL (2.4-3.5); Glucose 254 mg/dL (80-115); Magnesium 2.3 mg/dL (1.6-2.6); Potassium 3.1 mmol/L (3.5-5.1); Protein, Total 6.2 g/dL (5.8-8.1); Sodium 145 mmol/L (136-145)
[2019-08-07] MEDS: methylPREDNISolone Sod Succ 40 MG VIAL IVP SCH ×4 (05:46→23:21)
[2019-08-07 07:13] LABS: Actual Bicarbonate (HCO3a) 27.5 mEq/L (22-28); Base Excess (BEa) 3.8 mEq/L (-2.0 to +3.0); Calcium, Ionized 1.16 mmol/L (1.12-1.30); Carboxyhemoglobin (COHb) 1.1 gm% (0.0-3.0); Hemoglobin (Hb) 12.1 g/dL (14.0-18.0); Potassium - ABG Lab 3.24 mmol/L (3.70-5.30); pH, Arterial 7.48 (7.35-7.45)
[2019-08-07 07:16] LABS: O2 Tension (PaO2) 57.5 mmHg (> 80.0); Puncture Site RRA
--- NOTE | 2019-08-07 08:50 | RAD ---
PORTABLE CHEST: HISTORY: Mechanical ventilation with CCU followup. COMPARISON: 08/06/2019. FINDINGS: ET tube and NG tube remain in place. Left basilar opacification again noted. Left effusion and left basilar infiltrate and/or atelectasis is suspected. The upper lung zones remain clear and unchanged . No significant interval change. POS: [facility]
[2019-08-07] MEDS: Clopidogrel Bisulfate 75 MG TAB PO SCH (08:56)
[2019-08-07] MEDS: Aspirin 81 mg Enteric Coated Tablet PER TUBE SCH (08:56)
[2019-08-07] MEDS: Enoxaparin Sodium 40 MG/0.4 ML SYRINGE SC SCH (08:56)
[2019-08-07] MEDS: Oseltamivir 6 MG/ML ORAL SUSP PER TUBE SCH ×2 (08:57→20:44)
[2019-08-07] MEDS: Pantoprazole 40 MG VIAL IVP SCH (08:57)
[2019-08-07] MEDS ORDERED: Potassium Chloride 40 MEQ in Premix Bag 1 BAG IVPB SCH (09:00)
[2019-08-07] MEDS: NPH, Human Insulin Isophane 300 UNIT/3 ML VIAL SC SCH (10:23)
--- NOTE | 2019-08-07 13:12 | EKG ---
Test Reason : Blood Pressure : / mmHG Vent. Rate : 096 BPM Atrial Rate : 096 BPM P-R Int : 180 ms QRS Dur : 108 ms QT Int : 382 ms P-R-T Axes : 053 013 070 degrees QTc Int : 482 ms Normal sinus rhythm Cannot rule out Inferior infarct , age undetermined Abnormal ECG Confirmed by CARLEY CHRISTOPHER ([id number]) on 08/07/2019 1:11:48 PM Referred By: Confirmed By:CARLEY CHRISTOPHER
[2019-08-07] MEDS ORDERED: Insulin Glargine 20 UNITS in Pre-Filled Syringe SC SCH (13:30)
--- NOTE | 2019-08-07 18:24 | PRG ---
DATE OF SERVICE: 08/07/2019 SUBJECTIVE: Mr. Hitchcock is clinically stable. OBJECTIVE: VITAL SIGNS: Heart rates in the 80s, blood pressure 143/82, respiratory rates in the high teens to low 20s, oximetry is 93%. LUNGS: Remarkable for coarse equal breath sounds. HEART: Regular rhythm. ABDOMEN: Soft, EXTREMITIES: Without any change. IMAGING STUDIES: Chest x-ray shows an infiltrate in his left base. LABORATORY DATA: White count 7.7, hemoglobin 12.3, and platelets 308,000. Electrolytes; sodium 145, potassium 3.1, chloride 106, bicarb 30, BUN 44, and creatinine 1.84. PH 7.48, CO2 of 38, pO2 of 57. IMPRESSION: Respiratory failure, currently not weanable, but we are making a slow decrease in his ventilatory support. It is presumed that he has a pneumonia in his left lower lobe. His gas exchange appears to be improving. I suspect he just has had a big shot with his inflammatory process, it is improving as the inflammatory process improves. No DVT seen on Dopplers of his lower extremities. This does not rule out thromboembolic disease, but given his improvement and combined with this data, it makes it much less likely. I met with family who are in the room and answered all their questions. Job ID: [id number] MTDD
[2019-08-07] MEDS ORDERED: Insulin Glargine 35 UNITS in Pre-Filled Syringe 1 EACH SC SCH (21:00)
--- NOTE | 2019-08-07 21:46 | PDOC.HOSPP ---
- Subjective Encounter Date: 08/07/19 Encounter Time: 07:30 non-verbal Subjective: Patient seen and examined for Resp failure. On [facility] Vent. No overnight events - Objective Vital Signs & Weight: Vital Signs (12 hours) Temp Pulse Resp BP Pulse Ox 08/07/19 20:00 98.5 F 22 H 08/07/19 18:35 77 149/79 H 08/07/19 18:00 28 H 08/07/19 16:00 98.5 F 28 H 08/07/19 14:54 74 147/81 H 08/07/19 14:53 80 22 H 92 L 08/07/19 14:00 28 H 08/07/19 12:00 28 H 08/07/19 10:55 95 154/95 H 08/07/19 10:54 94 23 H 96 08/07/19 10:00 28 H Weight Admit Weight 304 lb Weight 311 lb 8.211 oz Most Recent Monitor Data Heart Rate from ECG 73 NIBP 150/91 NIBP BP-Mean 107 Respiration from ECG 22 SpO2 95 I&O: 08/06/19 08/07/19 08/08/19 06:59 06:59 06:59 Intake Total 2657.1 3925.1 1884 Output Total 1040 1635 890 Balance 1617.1 2290.1 994 Result Diagrams: 08/08/19 02:45 08/08/19 02:45 Additional Labs: Accuchecks 08/07/19 08/07/19 08/07/19 20:10 18:01 12:52 POC Glucose 192 H 229 H 265 H 08/07/19 08/07/19 08/07/19 10:12 03:59 00:10 POC Glucose 259 H 248 H 264 H Radiology Reviewed by me: Yes (CXR - reviewed) EKG Reviewed by me: Yes (Tele Sr) Hospitalist ROS - Review of Systems ROS unobtainable: due to endotracheal tube - Medication Medications: Active Medications Generic Name Dose Route Start Last Admin Trade Name Freq PRN Reason Stop Dose Admin Albuterol/Ipratropium 3 ml 08/04/19 18:30 08/07/19 18:34 Duoneb NEB 3 ml [id number] CONNOR Administration Aspirin 81 mg 08/06/19 09:00 08/07/19 08:56 Ecotrin PER TUBE 81 mg DAILY CONNOR Administration Clopidogrel Bisulfate 75 mg 08/07/19 09:00 08/07/19 08:56 Plavix PO 75 mg QAM CONNOR Administration Enoxaparin Sodium 40 mg 08/05/19 09:00 08/07/19 08:56 Lovenox SC 40 mg 0900 CONNOR Administration Sodium Chloride 1,000 mls @ 100 mls/hr 08/04/19 16:30 08/07/19 18:10 Normal Saline 0.9% IV 1,000 mls .Q10H CONNOR Administration Ascorbic Acid 1,500 mg/ Sodium 53 mls @ 100 mls/hr 08/04/19 18:00 08/07/19 18 :09 Chloride IVPB 08/08/19 18:01 53 mls Q6HR CONNOR Administration Levofloxacin 750 mg/ Device 150 mls @ 100 mls/hr 08/04/19 18:00 08/07/19 17: 40 IVPB 150 mls Q24HR CONNRO Administration Thiamine HCl 200 mg/ Sodium 52 mls @ 100 mls/hr 08/04/19 18:00 08/07/19 17:41 Chloride IVPB 52 mls 0600,1800 CONNOR Administration Fentanyl Citrate 2,000 mcg/ 100 mls @ 0 mls/hr 08/04/19 17:45 08/07/19 17:39 Sodium Chloride IV 09/03/19 17:45 100 mls INF CONNOR Administration Protocol Per Protocol Insulin Glargine 35 units/ 0.35 mls @ 0 mls/hr 08/07/19 21:00 08/07/19 20:45 Miscellaneous Medication SC 0.35 mls HS CONNOR Administration Insulin Human Lispro 0 units 08/04/19 16:55 08/07/19 20:45 Humalog SC 3 unit .AGGRESSIVE SLIDING PRN Administration Aggressive Correctional Scale Lorazepam 2 mg 08/04/19 17:45 08/07/19 10:51 Ativan SLOW IVP 09/03/19 17:45 2 mg Q1H PRN Administration Breakthrough agitation Methylprednisolone Sodium Succinate 20 mg 08/04/19 18:00 08/07/19 17:40 Solu-Medrol IVP 20 mg Q6HR CONNOR Administration Nicotine 21 mg 08/05/19 20:24 08/07/19 02:12 Nicoderm Patch TD 21 mg Q24H PRN Administration Smoking cravings Oseltamivir Phosphate 75 mg 08/04/19 21:00 08/07/19 20:44 Tamiflu PER TUBE 75 mg BID CONNOR Administration Pantoprazole Sodium 40 mg 08/05/19 09:00 08/07/19 08:57 Protonix IVP 40 mg DAILY CONNOR Administration Propofol 1,000 mg 08/04/19 17:45 08/07/19 20:44 Diprivan IV 09/03/19 17:45 1,000 mg INF PRN Administration TO ACHIEVE GOAL RASS Protocol - Exam General - other findings: on Vent Heart: no gallops, no rubs Respiratory: rales, rhonchi Gastrointestinal: soft, no guarding, no rigidity Extremities: no cyanosis, no clubbing Hosp A/P - Plan DVT proph w/lovenox, DVT proph w/SCDs Acute hypoxic/hypercapneic respiratory failure Severe Sepsis/Septic shock due to Influenza A COPD excerbation s/p brief cardiac arrest at [place] ER Toxic Metabolic Encephalopathy Lactic acidosis DM2 with diabetic neuropathy CAD Morbid obesity BMI 40 Hypokalemia Hypomagnesemia UDAY Type 2 [place] (POA) - resolved Tobacco dep PCN allergy PLAN: On Mechanical ventilation Cont IV Levaquin/Tamiflu/steroids Change NPH to Lantus 35 units BID Cont Agg sliding scale GI/DVT prophylaxis Cont other meds AM labs
[2019-08-08] MEDS: Propofol 1,000 MG/100 ML VIAL IV PRN ×6 (00:02→21:13)
[2019-08-08] MEDS: Sodium Chloride 0.9% 1,000 ML IV SCH (01:09)
[2019-08-08] MEDS: fentaNYL Citrate/PF 2,000 MCG in Sodium Chloride 0.9% 60 ML IV SCH ×2 (03:27→14:38)
[2019-08-08 04:13] LABS: #Basophils 0.1 thou/uL (0.0-0.2); #Lymphocytes 0.5 thou/uL (1.20-3.40); #Monocytes 0.3 thou/uL (0.11-0.59); #Neutrophils 5.6 thou/uL (1.40-6.50); %Basophils 0.8 % (0.0-1.0); %Eosinophils 0.3 % (0.0-10.0); %Lymphocytes 7.5 % (21.0-51.0); %Monocytes 5.2 % (0.0-10.0); %Neutrophils 86.2 % (42.0-75.0); Mean Corpuscular HGB CONC 32.7 g/dL (32.0-36.0); Mean Corpuscular Hemoglobin 27.7 pg (27.0-31.0); Mean Corpuscular Volume 84.6 fL (78.0-98.0); Mean Platelet Volume 7.7 fL (7.4-10.4); Platelet Count 276 thou/uL (130-400); RBC Distribution Width 17.7 % (11.5-14.5); Red Blood Cell (RBC) Count 4.35 mill/uL (4.70-6.10); White Blood Cell (WBC) Count 6.5 thou/uL (4.8-10.8)
[2019-08-08 04:38] LABS: Phosphorus 3.4 mg/dL (2.3-4.7)
[2019-08-08 04:39] LABS: Anion Gap 12 mmol/L (10-20); BUN (Urea Nitrogen) 40 mg/dL (8.4-25.7); Calc. Creatinine Clearance 99 mL/min (70-130); Calcium 8.5 mg/dL (7.8-10.44); Carbon Dioxide 30 mmol/L (23-31); Chloride 108 mmol/L (98-107); Estimated GFR-MDRD 45; Glucose 197 mg/dL (80-115); Potassium 3.4 mmol/L (3.5-5.1); Sodium 147 mmol/L (136-145)
[2019-08-08 04:40] LABS: ALT (SGPT) 42 U/L (8-55); AST (SGOT) 26 U/L (5-34); Albumin 3.2 g/dL (3.4-4.8); Alkaline Phosphatase 65 U/L (40-110); Bilirubin, Total 0.3 mg/dL (0.2-1.2); Globulin 2.4 g/dL (2.4-3.5); Magnesium 2.3 mg/dL (1.6-2.6); Protein, Total 5.6 g/dL (5.8-8.1)
[2019-08-08] MEDS: HumaLOG 300 UNITS/3 ML VIAL SC PRN ×5 (04:44→20:29)
[2019-08-08] MEDS: methylPREDNISolone Sod Succ 40 MG VIAL IVP SCH ×4 (05:00→23:22)
[2019-08-08 07:00] LABS: Actual Bicarbonate (HCO3a) 28.4 mEq/L (22-28); CO2 Tension 42.1 mmHg (35.0-45.0); Calcium, Ionized 1.19 mmol/L (1.12-1.30); Carboxyhemoglobin (COHb) 0.7 gm% (0.0-3.0); Hemoglobin (Hb) 10.6 g/dL (14.0-18.0); Potassium - ABG Lab 3.34 mmol/L (3.70-5.30); pH, Arterial 7.45 (7.35-7.45)
[2019-08-08 07:01] LABS: ALV-art Gradient 245.375 (0-20); O2 Tension (PaO2) 58.5 mmHg (> 80.0); Puncture Site RRA
--- NOTE | 2019-08-08 07:52 | RAD ---
EXAM: Single view of the chest HISTORY: Pneumonia COMPARISON: 08/07/2019 FINDINGS: Single view of the chest shows an enlarged but stable cardiomediastinal silhouette. The li comfort and tubes are unchanged in position. There appears to be a small left pleural effusion with adjacent atelectasis versus infiltrate. The bones are unremarkable. IMPRESSION: Stable exam
--- NOTE | 2019-08-08 08:37 | PRG ---
DATE OF SERVICE: 08/08/2019 TIME SPENT: 35 minutes of critical care time. SUBJECTIVE: The patient remains intubated on mechanical ventilation. There have been no acute changes overnight. OBJECTIVE: VITAL SIGNS: Temperature 98.4, pulse , blood pressure 153/82, and O2 sat 92%. Total intake in 24 hours 3632 and output 1500. He is currently on SIMV rate of 22, tidal volume of 500, PEEP 10, pressure support of 10, and FiO2 of 50%. HEENT: Unremarkable. NECK: No adenopathy or JVD. LUNGS: He has crackles in the bases. CARDIAC: S1 and S2. Regular. ABDOMEN: Soft, obese, nontender, and nondistended. EXTREMITIES: No clubbing, cyanosis or edema. LABORATORY DATA: White blood cell count 6.5, hematocrit 36.8, and platelet count 276. PH 7.45, pCO2 of 42, and pO2 of 58. Sodium 147, potassium 3.4, chloride 108, CO2 of 30, BUN 40, creatinine 1.5, and glucose 197. Albumin 3.2. IMAGING DATA: Chest x-ray is actually fairly clear except at the left base. ASSESSMENT: 1. Influenza type A. 2. Acute respiratory failure, requiring mechanical ventilation. 3. Doppler negative for deep venous thrombosis. 4. Morbid obesity. PLAN: I do not think he is weanable at this time based on his degree of hypoxemia. He has been weaned off the Levophed drip without problem. He is continuing on Levaquin and Tamiflu. He is on IV corticosteroids and on insulin. His blood sugars are being managed by the hospitalist group. He is on ascorbic acid and thiamine for sepsis. I would anticipate him being intubated for several more days. He continues enteral tube feeds. The above encompassed 35 minutes of critical care time. Job ID: [id number]
[2019-08-08] MEDS: Clopidogrel Bisulfate 75 MG TAB PO SCH (09:00)
[2019-08-08] MEDS: cloNIDine 0.1 MG TAB PO SCH (09:00)
[2019-08-08] MEDS: Pantoprazole 40 MG VIAL IVP SCH (09:00)
[2019-08-08] MEDS ORDERED: Insulin Glargine 35 UNITS in Pre-Filled Syringe 1 EACH SC SCH (09:00)
[2019-08-08] MEDS: Aspirin 81 mg Enteric Coated Tablet PER TUBE SCH (09:01)
[2019-08-08] MEDS: Enoxaparin Sodium 40 MG/0.4 ML SYRINGE SC SCH (09:01)
[2019-08-08] MEDS: Oseltamivir 6 MG/ML ORAL SUSP PER TUBE SCH ×2 (09:05→21:14)
--- NOTE | 2019-08-08 18:30 | PDOC.HOSPP ---
- Subjective Encounter Date: 08/08/19 Encounter Time: 17:00 non-verbal Subjective: Patient seen and examined for resp failure. On Vent. No overnight events - Objective Vital Signs & Weight: Vital Signs (12 hours) Temp Pulse Resp BP Pulse Ox 08/08/19 16:00 98.1 F 22 H 08/08/19 14:45 94 142/92 H 08/08/19 14:41 75 16 98 08/08/19 14:00 22 H 08/08/19 12:00 22 H 08/08/19 10:27 82 163/96 H 08/08/19 10:25 82 16 96 08/08/19 10:00 22 H 08/08/19 09:00 159/84 H 08/08/19 08:00 98.6 F 22 H 08/08/19 06:30 66 148/85 H Weight Admit Weight 304 lb Weight 296 lb Most Recent Monitor Data Heart Rate from ECG 88 NIBP 148/87 NIBP BP-Mean 108 Respiration from ECG 17 SpO2 94 I&O: 08/07/19 08/08/19 08/09/19 06:59 06:59 06:59 Intake Total 3925.1 3632.2 245 Output Total 1635 1500 570 Balance 2290.1 2132.2 -325 Result Diagrams: 08/08/19 02:45 08/08/19 02:45 Additional Labs: Accuchecks 08/08/19 08/08/19 08/08/19 17:01 12:26 09:20 POC Glucose 225 H 192 H 197 H 08/07/19 08/07/19 23:31 20:10 POC Glucose 175 H 192 H EKG Reviewed by me: Yes (Tele SR) Hospitalist ROS - Review of Systems ROS unobtainable: due to endotracheal tube - Medication Medications: Active Medications Generic Name Dose Route Start Last Admin Trade Name Freq PRN Reason Stop Dose Admin Albuterol/Ipratropium 3 ml 08/04/19 18:30 08/08/19 18:26 Duoneb NEB 3 ml [id number] CONNOR Administration Aspirin 81 mg 08/06/19 09:00 08/08/19 09:01 Ecotrin PER TUBE 81 mg DAILY CONNOR Administration Clonidine 0.1 mg 08/08/19 09:00 08/08/19 09:00 Catapres PO 0.1 mg QAM CONNOR Administration Clopidogrel Bisulfate 75 mg 08/07/19 09:00 08/08/19 09:00 Plavix PO 75 mg QAM CONNOR Administration Enoxaparin Sodium 40 mg 08/05/19 09:00 08/08/19 09:01 Lovenox SC 40 mg 0900 CONNOR Administration Levofloxacin 750 mg/ Device 150 mls @ 100 mls/hr 08/04/19 18:00 08/07/19 17: 40 IVPB 150 mls Q24HR CONNOR Administration Thiamine HCl 200 mg/ Sodium 52 mls @ 100 mls/hr 08/04/19 18:00 08/08/19 05:00 Chloride IVPB 52 mls 0600,1800 CONNOR Administration Fentanyl Citrate 2,000 mcg/ 100 mls @ 0 mls/hr 08/04/19 17:45 08/08/19 14:38 Sodium Chloride IV 09/03/19 17:45 100 mls INF CONNOR Administration Protocol Per Protocol Insulin Human Lispro 0 units 08/04/19 16:55 08/08/19 16:59 Humalog SC 6 unit .AGGRESSIVE SLIDING PRN Administration Aggressive Correctional Scale Lorazepam 2 mg 08/04/19 17:45 08/07/19 23:19 Ativan SLOW IVP 09/03/19 17:45 2 mg Q1H PRN Administration Breakthrough agitation Methylprednisolone Sodium Succinate 20 mg 08/04/19 18:00 08/08/19 12:15 Solu-Medrol IVP 20 mg Q6HR CONNOR Administration Nicotine 21 mg 08/05/19 20:24 08/07/19 02:12 Nicoderm Patch TD 21 mg Q24H PRN Administration Smoking cravings Oseltamivir Phosphate 75 mg 08/04/19 21:00 08/08/19 09:05 Tamiflu PER TUBE 75 mg BID CONNOR Administration Pantoprazole Sodium 40 mg 08/05/19 09:00 08/08/19 09:00 Protonix IVP 40 mg DAILY CONNOR Administration Propofol 1,000 mg 08/04/19 17:45 08/08/19 16:48 Diprivan IV 09/03/19 17:45 1,000 mg INF PRN Administration TO ACHIEVE GOAL RASS Protocol - Exam General - other findings: On [facility] Vent Heart: RRR, no gallops Respiratory: rales, rhonchi Gastrointestinal: soft, non-tender, no guarding, no rigidity Extremities: no cyanosis, no clubbing Hosp A/P - Plan DVT proph w/lovenox, DVT proph w/SCDs Acute hypoxic/hypercapneic respiratory failure Severe Sepsis/Septic shock due to Influenza A COPD exacerbation s/p brief cardiac arrest at [facility] Toxic Metabolic Encephalopathy Lactic acidosis DM2 with diabetic neuropathy CAD Morbid obesity BMI 40 Hypokalemia Hypomagnesemia UDAY Type 2 ID (POA) - resolved Tobacco dep PCN allergy PLAN: Cont Mechanical ventilation with IV Levaquin/Tamiflu/steroids Change Lantus to 45 units BID Cont Aggressive sliding scale Cont other meds as above GI/DVT prophylaxis AM labs
[2019-08-08] MEDS: Insulin Glargine 45 UNITS in Pre-Filled Syringe 1 EACH SC SCH (20:29)
[2019-08-08] MEDS: Lorazepam 2 MG/ML VIAL SLOW IVP PRN (22:13)
[2019-08-09] MEDS: Propofol 1,000 MG/100 ML VIAL IV PRN ×6 (00:33→22:44)
[2019-08-09] MEDS: HumaLOG 300 UNITS/3 ML VIAL SC PRN (04:06)
[2019-08-09 04:50] LABS: #Eosinphils 0.1 thou/uL (0.0-0.7); #Lymphocytes 0.9 thou/uL (1.20-3.40); #Monocytes 0.7 thou/uL (0.11-0.59); #Neutrophils 7.3 thou/uL (1.40-6.50); %Basophils 0.1 % (0.0-1.0); %Eosinophils 0.7 % (0.0-10.0); %Lymphocytes 9.7 % (21.0-51.0); %Monocytes 7.5 % (0.0-10.0); %Neutrophils 81.9 % (42.0-75.0); Hemoglobin 12.1 g/dL (14.0-18.0); Mean Corpuscular HGB CONC 31.8 g/dL (32.0-36.0); Mean Corpuscular Volume 84.9 fL (78.0-98.0); Mean Platelet Volume 7.9 fL (7.4-10.4); Platelet Count 298 thou/uL (130-400); RBC Distribution Width 17.5 % (11.5-14.5); Red Blood Cell (RBC) Count 4.48 mill/uL (4.70-6.10); White Blood Cell (WBC) Count 8.9 thou/uL (4.8-10.8)
[2019-08-09 04:57] LABS: Band 7 % (5-11); Elliptocytes SLIGHT = 2-5 cells (100X) (0-1/hpf); Lymphocytes 6 % (21-51); MDiff Complete? YES; Monocytes 3 % (0-10); Neutrophil 84 % (42-75); Platelet Morphology Comment Appears Adequate
[2019-08-09 05:03] LABS: Phosphorus 3.9 mg/dL (2.3-4.7)
[2019-08-09 05:06] LABS: ALT (SGPT) 158 U/L (8-55); AST (SGOT) 93 U/L (5-34); Albumin 3.1 g/dL (3.4-4.8); Alkaline Phosphatase 64 U/L (40-110); Anion Gap 10 mmol/L (10-20); BUN (Urea Nitrogen) 39 mg/dL (8.4-25.7); Bilirubin, Total 0.3 mg/dL (0.2-1.2); Calc. Creatinine Clearance 102 mL/min (70-130); Calcium 8.6 mg/dL (7.8-10.44); Carbon Dioxide 33 mmol/L (23-31); Chloride 108 mmol/L (98-107); Estimated GFR-MDRD 49; Globulin 2.4 g/dL (2.4-3.5); Glucose 155 mg/dL (80-115); Magnesium 2.3 mg/dL (1.6-2.6); Potassium 3.4 mmol/L (3.5-5.1); Protein, Total 5.5 g/dL (5.8-8.1); Sodium 148 mmol/L (136-145)
[2019-08-09] MEDS: methylPREDNISolone Sod Succ 40 MG VIAL IVP SCH ×3 (06:21→17:31)
[2019-08-09 07:00] LABS: Actual Bicarbonate (HCO3a) 30.1 mEq/L (22-28); Base Excess (BEa) 3.7 mEq/L (-2.0 to +3.0); CO2 Tension 54.1 mmHg (35.0-45.0); Calcium, Ionized 1.22 mmol/L (1.12-1.30); Carboxyhemoglobin (COHb) 0.7 gm% (0.0-3.0); Hemoglobin (Hb) 11.8 g/dL (14.0-18.0); Potassium - ABG Lab 3.28 mmol/L (3.70-5.30); pH, Arterial 7.36 (7.35-7.45)
[2019-08-09 07:01] LABS: ALV-art Gradient 197.485 (0-20); Puncture Site RRA
--- NOTE | 2019-08-09 08:05 | RAD ---
EXAM: Single view of the chest HISTORY: Pneumonia COMPARISON: 08/08/2019 FINDINGS: Single view of the chest shows an enlarged but stable cardiomediastinal silhouette. The en dotracheal tube and NG tube are unchanged in position. There is no evidence of consolidation, mass, or pleural effusion. The bones are unremarkable. IMPRESSION: Stable exam
[2019-08-09] MEDS: Aspirin 81 mg Enteric Coated Tablet PER TUBE SCH (08:28)
[2019-08-09] MEDS: Clopidogrel Bisulfate 75 MG TAB PO SCH (08:28)
[2019-08-09] MEDS: cloNIDine 0.1 MG TAB PO SCH (08:28)
[2019-08-09] MEDS: Insulin Glargine 45 UNITS in Pre-Filled Syringe 1 EACH SC SCH ×2 (08:29→20:47)
[2019-08-09] MEDS: Enoxaparin Sodium 40 MG/0.4 ML SYRINGE SC SCH (08:29)
[2019-08-09] MEDS: Oseltamivir 6 MG/ML ORAL SUSP PER TUBE SCH ×2 (08:29→20:43)
[2019-08-09] MEDS: Pantoprazole 40 MG VIAL IVP SCH (08:29)
--- NOTE | 2019-08-09 08:48 | PRG ---
DATE OF SERVICE: 08/09/2019 35 minutes of critical care time. SUBJECTIVE: The patient remains intubated on mechanical ventilation. There have been no acute changes overnight. He will wake up and follow commands appropriately. OBJECTIVE: VITAL SIGNS: His temperature is 98.4, pulse 77, blood pressure 149/80, O2 saturation 97%. Intake 24 hours 2680, output 1590. HEENT: Unremarkable. NECK: No adenopathy or JVD. CHEST: Fairly clear anteriorly. CARDIAC: S1, S2. Regular. ABDOMEN: Obese, soft, nontender, and nondistended. EXTREMITIES: No clubbing, cyanosis, or edema. LABORATORY DATA: Sodium 148, potassium 3.4, chloride 108, CO2 of 33, BUN 39, creatinine 1.4, glucose 155. PH 7.36, pCO2 of 54, and pO2 of 70 on SIMV rate 16, tidal volume 500, PEEP 10, pressure support 10, FiO2 47%. White blood cell count 8.9, hematocrit 38, platelet count 298. IMAGING STUDIES: Chest x-ray shows fairly clear lung foley bilaterally. ASSESSMENT: 1. Influenza type A. 2. Acute respiratory failure requiring mechanical ventilation. 3. Morbid obesity. 4. Developing hypernatremia. PLAN: 1. We will proceed with more aggressive weaning with hopes of extubation in the next 24-48 hours. 2. Continue levofloxacin, Tamiflu. 3. Decrease steroid dose. Job ID: [id number]
[2019-08-09] MEDS: fentaNYL Citrate/PF 2,000 MCG in Sodium Chloride 0.9% 60 ML IV SCH ×2 (09:01→19:20)
[2019-08-09] MEDS: Dextrose 5% in Water 1,000 ML IV SCH ×2 (09:35→22:45)
--- NOTE | 2019-08-09 10:44 | PDOC.HOSPP ---
- Subjective Encounter Date: 08/09/19 Encounter Time: 10:42 Subjective: Mr. Hitchcock was seen today in follow-up of respiratory failure due to influenza. He is intubated. No complaints voiced by staff. - Objective Vital Signs & Weight: Vital Signs (12 hours) Temp Pulse Resp BP Pulse Ox 08/09/19 10:00 11 L 08/09/19 08:28 149/80 H 08/09/19 08:00 16 08/09/19 07:13 96 08/09/19 07:00 98.4 F 08/09/19 06:40 72 146/84 H 08/09/19 06:37 75 16 98 08/09/19 06:00 18 08/09/19 04:00 99.5 F 16 08/09/19 02:07 78 168/90 H 08/09/19 02:00 12 08/09/19 00:00 98.8 F 16 Weight Admit Weight 304 lb Weight 311 lb 1.156 oz Most Recent Monitor Data Heart Rate from ECG 79 NIBP 161/94 NIBP BP-Mean 112 Respiration from ECG 15 SpO2 96 I&O: 08/08/19 08/09/19 08/10/19 06:59 06:59 06:59 Intake Total 3632.2 2682 90 Output Total 1500 1590 220 Balance 2132.2 1092 -130 Result Diagrams: 08/09/19 04:05 08/09/19 04:05 Additional Labs: Accuchecks 08/09/19 08/09/19 08/08/19 04:07 00:29 20:31 POC Glucose 150 H 135 H 192 H 08/08/19 08/08/19 17:01 12:26 POC Glucose 225 H 192 H Hospitalist ROS - Medication Medications: Active Medications Generic Name Dose Route Start Last Admin Trade Name Freq PRN Reason Stop Dose Admin Albuterol/Ipratropium 3 ml 08/04/19 18:30 08/09/19 06:37 Duoneb NEB 3 ml [id number] CONNOR Administration Aspirin 81 mg 08/06/19 09:00 08/09/19 08:28 Ecotrin PER TUBE 81 mg DAILY CONNOR Administration Clonidine 0.1 mg 08/08/19 09:00 08/09/19 08:28 Catapres PO 0.1 mg QAM CONNOR Administration Clopidogrel Bisulfate 75 mg 08/07/19 09:00 08/09/19 08:28 Plavix PO 75 mg QAM CONNOR Administration Enoxaparin Sodium 40 mg 08/05/19 09:00 08/09/19 08:29 Lovenox SC 40 mg 0900 CONNOR Administration Levofloxacin 750 mg/ Device 150 mls @ 100 mls/hr 08/04/19 18:00 08/08/19 18: 30 IVPB 150 mls Q24HR CONNOR Administration Thiamine HCl 200 mg/ Sodium 52 mls @ 100 mls/hr 08/04/19 18:00 08/09/19 06:48 Chloride IVPB 52 mls 0600,1800 CONNOR Administration Fentanyl Citrate 2,000 mcg/ 100 mls @ 0 mls/hr 08/04/19 17:45 08/09/19 09:01 Sodium Chloride IV 09/03/19 17:45 100 mls INF CONNOR Administration Protocol Per Protocol Insulin Glargine 45 units/ 0.45 mls @ 0 mls/hr 08/08/19 21:00 08/09/19 08:29 Miscellaneous Medication SC 0.45 mls BID CONNOR Administration Dextrose/Water 1,000 mls @ 75 mls/hr 08/09/19 08:45 08/09/19 09:35 D5w IV 1,000 mls .[id number] CONNOR Administration Insulin Human Lispro 0 units 08/04/19 16:55 08/09/19 04:06 Humalog SC 3 unit .AGGRESSIVE SLIDING PRN Administration Aggressive Correctional Scale Lorazepam 2 mg 08/04/19 17:45 08/08/19 22:13 Ativan SLOW IVP 09/03/19 17:45 2 mg Q1H PRN Administration Breakthrough agitation Methylprednisolone Sodium Succinate 20 mg 08/04/19 18:00 08/09/19 06:21 Solu-Medrol IVP 20 mg Q6HR CONNOR Administration Nicotine 21 mg 08/05/19 20:24 08/07/19 02:12 Nicoderm Patch TD 21 mg Q24H PRN Administration Smoking cravings Oseltamivir Phosphate 75 mg 08/04/19 21:00 08/09/19 08:29 Tamiflu PER TUBE 75 mg BID CONNOR Administration Pantoprazole Sodium 40 mg 08/05/19 09:00 08/09/19 08:29 Protonix IVP 40 mg DAILY CONNOR Administration Propofol 1,000 mg 08/04/19 17:45 08/09/19 09:46 Diprivan IV 09/03/19 17:45 1,000 mg INF PRN Administration TO ACHIEVE GOAL RASS Protocol - Exam Eye: PERRL Heart: RRR, no murmur, no gallops, no rubs, normal peripheral pulses Respiratory: CTAB (with the exception of coarse breath sounds and rhonchi), no wheezes, no rales, normal chest expansion Gastrointestinal: soft, non-tender, non-distended, normal bowel sounds, no palpable masses, no hepatomegaly Extremities: no cyanosis, no clubbing, no edema Hosp A/P (1) Acute respiratory failure with hypoxia Code(s): J96.01 - ACUTE RESPIRATORY FAILURE WITH HYPOXIA Status: Acute (2) Influenza A Code(s): J10.1 - FLU DUE TO OTH IDENT INFLUENZA VIRUS W OTH RESP MANIFEST Status: Acute (3) CAD (coronary artery disease) Code(s): I25.10 - ATHSCL HEART DISEASE OF [place] CORONARY ARTERY W/O ANG PCTRS Status: Chronic (4) Diabetes type 2, controlled Code(s): E11.9 - TYPE 2 DIABETES MELLITUS WITHOUT COMPLICATIONS Status: Chronic (5) Hypertension Code(s): I10 - ESSENTIAL (PRIMARY) HYPERTENSION Status: Chronic - Plan * Acute respiratory failure with hypoxemia- continue vent support per PCCM * Influenza A- continue Tamiflu and IV steroids * He is also on Empiric Levaquin * DM-blood glucose is in acceptable range * HTN- blood pressure is a bit elevated- will re-start Metoprolol, and Hydralazine
[2019-08-09] MEDS: hydrALAZINE 25 MG TAB PER TUBE SCH ×2 (14:22→20:42)
[2019-08-09] MEDS: Metoprolol Tartrate 50 MG TAB PER TUBE SCH (20:43)
[2019-08-10] MEDS: methylPREDNISolone Sod Succ 40 MG VIAL IVP SCH ×4 (00:54→20:08)
[2019-08-10] MEDS: HumaLOG 300 UNITS/3 ML VIAL SC PRN ×5 (01:11→20:14)
[2019-08-10] MEDS: Propofol 1,000 MG/100 ML VIAL IV PRN ×5 (02:34→21:44)
[2019-08-10] MEDS: Lorazepam 2 MG/ML VIAL SLOW IVP PRN (03:05)
[2019-08-10 04:29] LABS: #Eosinphils 0.1 thou/uL (0.0-0.7); #Lymphocytes 1.2 thou/uL (1.20-3.40); #Monocytes 0.9 thou/uL (0.11-0.59); #Neutrophils 7.6 thou/uL (1.40-6.50); %Basophils 0.3 % (0.0-1.0); %Eosinophils 0.6 % (0.0-10.0); %Lymphocytes 12.5 % (21.0-51.0); %Monocytes 9.1 % (0.0-10.0); %Neutrophils 77.5 % (42.0-75.0); Hemoglobin 12.2 g/dL (14.0-18.0); Mean Corpuscular Hemoglobin 27.5 pg (27.0-31.0); Mean Platelet Volume 7.8 fL (7.4-10.4); Platelet Count 311 thou/uL (130-400); RBC Distribution Width 17.7 % (11.5-14.5); Red Blood Cell (RBC) Count 4.46 mill/uL (4.70-6.10); White Blood Cell (WBC) Count 9.8 thou/uL (4.8-10.8)
[2019-08-10 04:56] LABS: Phosphorus 4.4 mg/dL (2.3-4.7)
[2019-08-10 04:57] LABS: ALT (SGPT) 162 U/L (8-55); AST (SGOT) 64 U/L (5-34); Albumin 3.2 g/dL (3.4-4.8); Alkaline Phosphatase 65 U/L (40-110); Anion Gap 12 mmol/L (10-20); BUN (Urea Nitrogen) 41 mg/dL (8.4-25.7); Bilirubin, Total 0.3 mg/dL (0.2-1.2); Calc. Creatinine Clearance 110 mL/min (70-130); Calcium 8.6 mg/dL (7.8-10.44); Carbon Dioxide 35 mmol/L (23-31); Chloride 106 mmol/L (98-107); Estimated GFR-MDRD 51; Globulin 2.6 g/dL (2.4-3.5); Glucose 163 mg/dL (80-115); Magnesium 2.4 mg/dL (1.6-2.6); Potassium 3.6 mmol/L (3.5-5.1); Protein, Total 5.8 g/dL (5.8-8.1); Sodium 149 mmol/L (136-145)
[2019-08-10] MEDS: fentaNYL Citrate/PF 2,000 MCG in Sodium Chloride 0.9% 60 ML IV SCH (06:42)
[2019-08-10 07:12] LABS: Base Excess (BEa) 7.7 mEq/L (-2.0 to +3.0); Calcium, Ionized 1.22 mmol/L (1.12-1.30); Carboxyhemoglobin (COHb) 0.9 gm% (0.0-3.0); Hemoglobin (Hb) 12.2 g/dL (14.0-18.0); Potassium - ABG Lab 3.62 mmol/L (3.70-5.30); pH, Arterial 7.33 (7.35-7.45)
[2019-08-10 07:13] LABS: CO2 Tension 70.4 mmHg (35.0-45.0); O2 Tension (PaO2) 58.2 mmHg (> 80.0); Puncture Site RRA
--- NOTE | 2019-08-10 07:53 | RAD ---
EXAM: Single view of the chest HISTORY: Pneumonia COMPARISON: 08/01/2019 FINDINGS: Single view of the chest shows an enlarged but stable cardiomediastinal silhouette. Lines and tubes are unchanged in position. There appear to be small bilateral pleural effusions with adjacent atelectasis versus infiltrate. The bones are unremarkable. IMPRESSION: Bilateral pleural effusions with adjacent atelectasis versus infiltrate.
[2019-08-10] MEDS: Aspirin 81 mg Enteric Coated Tablet PER TUBE SCH (08:23)
[2019-08-10] MEDS: hydrALAZINE 25 MG TAB PER TUBE SCH ×3 (08:23→20:09)
[2019-08-10] MEDS: cloNIDine 0.1 MG TAB PO SCH (08:23)
[2019-08-10] MEDS: Metoprolol Tartrate 50 MG TAB PER TUBE SCH ×2 (08:24→20:09)
[2019-08-10] MEDS: Clopidogrel Bisulfate 75 MG TAB PO SCH (08:24)
[2019-08-10] MEDS: Enoxaparin Sodium 40 MG/0.4 ML SYRINGE SC SCH (08:24)
[2019-08-10] MEDS: Pantoprazole 40 MG VIAL IVP SCH (08:24)
[2019-08-10] MEDS: Insulin Glargine 45 UNITS in Pre-Filled Syringe 1 EACH SC SCH ×2 (08:37→20:09)
[2019-08-10] MEDS ORDERED: Furosemide 40 MG/4 ML VIAL SLOW IVP SCH (09:00)
--- NOTE | 2019-08-10 09:35 | PRG ---
DATE OF SERVICE: 08/10/2019 TIME SPENT: 35 minutes of critical care time. SUBJECTIVE: The patient remains intubated on mechanical ventilation. He will wake up and follow commands. OBJECTIVE: VITAL SIGNS: His temperature is 99.2, pulse 75, blood pressure 149/91, O2 saturation 95%. 24-hour intake 3556, output 1490. He has been in positive fluid balance since admission, and his weight is up to 313 pounds. HEENT: Unremarkable. NECK: No adenopathy or JVD. LUNGS: Fairly clear anteriorly. CARDIAC: S1 and S2. Regular. ABDOMEN: Soft, obese. EXTREMITIES: No edema. LABORATORY DATA: Sodium 149, potassium 3.6, chloride 106, CO2 of 35, BUN 41, creatinine 1.4, and glucose 163. White blood cell count 9.8, hematocrit 38.3, and platelet count 311. PH 7.33, pCO2 of 70, pO2 of 58 on SIMV rate 12, tidal volume 500, PEEP 5, pressure support 10, FiO2 of 40%. I would continue to see clearing on the x-ray. ASSESSMENT: 1. Influenza with pneumonia. 2. Acute respiratory failure requiring mechanical ventilation. 3. Mild hypernatremia-likely from saline administration at the time of admission. 4. Fluid overload. 5. Morbid obesity. 6. Acid-base disturbance. PLAN: He is approaching the point where we can extubate. I am somewhat worried about his CO2. I will first try diuresing him. We will lessen his sedation so that he will not hypoventilate. He will undergo a spontaneous breathing trial later today, and we will make a decision afterwards. The Tamiflu will be stopped because he has had 5 days of that. He will continue Levaquin for a couple more days and then that will be stopped. He will receive one dose of Lasix today. Job ID: [id number]
--- NOTE | 2019-08-10 10:08 | PDOC.HOSPP ---
- Subjective Encounter Date: 08/10/19 Encounter Time: 10:05 Subjective: Mr. Hitchcock was seen today in follow-up of influenza A with respiratory failure. He is intubated, no problems voiced by staff. - Objective Vital Signs & Weight: Vital Signs (12 hours) Temp Pulse Resp BP Pulse Ox 08/10/19 08:23 75 147/89 H 08/10/19 07:58 12 94 L 08/10/19 07:00 99.2 F 08/10/19 06:32 75 147/89 H 08/10/19 06:27 76 16 94 L 08/10/19 06:00 12 08/10/19 04:00 18 08/10/19 02:40 77 12 92 L 08/10/19 02:00 12 08/10/19 00:00 98.8 F 16 08/09/19 22:36 79 12 93 L Weight Admit Weight 304 lb Weight 313 lb 7.957 oz Most Recent Monitor Data Heart Rate from ECG 82 NIBP 151/88 NIBP BP-Mean 105 Respiration from ECG 2 SpO2 94 I&O: 08/09/19 08/10/19 08/11/19 06:59 06:59 06:59 Intake Total 2682 3556 676 Output Total 1590 1490 360 Balance 1092 2066 316 Result Diagrams: 08/10/19 03:28 08/10/19 03:28 Additional Labs: Accuchecks 08/10/19 08/10/19 08/10/19 08:38 04:13 00:45 POC Glucose 206 H 176 H 177 H 08/09/19 08/09/19 08/09/19 20:49 15:52 11:43 POC Glucose 146 H 140 H 119 H Hospitalist ROS - Medication Medications: Active Medications Generic Name Dose Route Start Last Admin Trade Name Freq PRN Reason Stop Dose Admin Albuterol/Ipratropium 3 ml 08/04/19 18:30 08/10/19 06:27 Duoneb NEB 3 ml [id number] CONNOR Administration Aspirin 81 mg 08/06/19 09:00 08/10/19 08:23 Ecotrin PER TUBE 81 mg DAILY CONNOR Administration Clonidine 0.1 mg 08/08/19 09:00 08/10/19 08:23 Catapres PO 0.1 mg QAM CONNOR Administration Clopidogrel Bisulfate 75 mg 08/07/19 09:00 08/10/19 08:24 Plavix PO 75 mg QAM CONNOR Administration Enoxaparin Sodium 40 mg 08/05/19 09:00 08/10/19 08:24 Lovenox SC 40 mg 0900 CONNOR Administration Hydralazine HCl 25 mg 08/09/19 15:00 08/10/19 08:23 Apresoline PER TUBE 25 mg TID CONNOR Administration Levofloxacin 750 mg/ Device 150 mls @ 100 mls/hr 08/04/19 18:00 08/09/19 17: 14 IVPB 150 mls Q24HR CONNOR Administration Fentanyl Citrate 2,000 mcg/ 100 mls @ 0 mls/hr 08/04/19 17:45 08/10/19 06:42 Sodium Chloride IV 09/03/19 17:45 100 mls INF OCNNOR Administration Protocol Per Protocol Insulin Glargine 45 units/ 0.45 mls @ 0 mls/hr 08/08/19 21:00 08/10/19 08:37 Miscellaneous Medication SC 0.45 mls BID CONNOR Administration Dextrose/Water 1,000 mls @ 75 mls/hr 08/09/19 08:45 08/09/19 22:45 D5w IV 1,000 mls .[id number] CONNOR Administration Insulin Human Lispro 0 units 08/04/19 16:55 08/10/19 04:31 Humalog SC 3 unit .AGGRESSIVE SLIDING PRN Administration Aggressive Correctional Scale Lorazepam 2 mg 08/04/19 17:45 08/10/19 03:05 Ativan SLOW IVP 09/03/19 17:45 2 mg Q1H PRN Administration Breakthrough agitation Metoprolol Tartrate 50 mg 08/09/19 21:00 08/10/19 08:24 Lopressor PER TUBE 50 mg BID CONNOR Administration Nicotine 21 mg 08/05/19 20:24 08/07/19 02:12 Nicoderm Patch TD 21 mg Q24H PRN Administration Smoking cravings Pantoprazole Sodium 40 mg 08/05/19 09:00 08/10/19 08:24 Protonix IVP 40 mg DAILY CONNOR Administration Propofol 1,000 mg 08/04/19 17:45 08/10/19 02:34 Diprivan IV 09/03/19 17:45 1,000 mg INF PRN Administration TO ACHIEVE GOAL RASS Protocol - Exam Eye: PERRL Heart: RRR, no murmur, no gallops, no rubs, normal peripheral pulses Respiratory: CTAB (with coarse breath sounds bilaterally) Gastrointestinal: soft, non-tender, non-distended, normal bowel sounds, no palpable masses Extremities: no cyanosis, 1+ LE edema Neurological: no focal deficits Hosp A/P (1) Acute respiratory failure with hypoxia Code(s): J96.01 - ACUTE RESPIRATORY FAILURE WITH HYPOXIA Status: Acute (2) Influenza A Code(s): J10.1 - FLU DUE TO OTH IDENT INFLUENZA VIRUS W OTH RESP MANIFEST Status: Acute (3) CAD (coronary artery disease) Code(s): I25.10 - ATHSCL HEART DISEASE OF [place] CORONARY ARTERY W/O ANG PCTRS Status: Chronic (4) Diabetes type 2, controlled Code(s): E11.9 - TYPE 2 DIABETES MELLITUS WITHOUT COMPLICATIONS Status: Chronic (5) Hypertension Code(s): I10 - ESSENTIAL (PRIMARY) HYPERTENSION Status: Chronic - Plan * Acute respiratory failure with hypoxemia due to Influenza A- He has completed the course of Tamiflu, and continue vent wean per PCCM * He is also on Empiric Levaquin- will check procalcitonin, and if low consider discontinuing Levaquin * DM-blood glucose is stable * Mild Hypernatremia- increase free water * HTN- blood pressure is a bit elevated- better- continue the current regimen and observe
[2019-08-10] MEDS ORDERED: hydrALAZINE 20 MG/ML VIAL ONE (12:10)
[2019-08-10] MEDS ORDERED: hydrALAZINE 20 MG/ML VIAL SLOW IVP PRN (13:05)
[2019-08-10] MEDS: Dextrose 5% in Water 1,000 ML IV SCH (14:53)
[2019-08-11] MEDS: Propofol 1,000 MG/100 ML VIAL IV PRN (04:18)
[2019-08-11] MEDS: Dextrose 5% in Water 1,000 ML IV SCH (04:19)
[2019-08-11 04:33] LABS: #Eosinphils 0.1 thou/uL (0.0-0.7); #Lymphocytes 1.9 thou/uL (1.20-3.40); #Monocytes 0.9 thou/uL (0.11-0.59); #Neutrophils 9.4 thou/uL (1.40-6.50); %Basophils 0.2 % (0.0-1.0); %Eosinophils 1.1 % (0.0-10.0); %Lymphocytes 15.2 % (21.0-51.0); %Monocytes 7.5 % (0.0-10.0); Hemoglobin 12.4 g/dL (14.0-18.0); Mean Corpuscular HGB CONC 32.8 g/dL (32.0-36.0); Mean Corpuscular Hemoglobin 27.6 pg (27.0-31.0); Mean Corpuscular Volume 84.3 fL (78.0-98.0); Mean Platelet Volume 7.7 fL (7.4-10.4); Platelet Count 320 thou/uL (130-400); RBC Distribution Width 17.4 % (11.5-14.5); Red Blood Cell (RBC) Count 4.47 mill/uL (4.70-6.10); White Blood Cell (WBC) Count 12.4 thou/uL (4.8-10.8)
[2019-08-11 04:56] LABS: ALT (SGPT) 128 U/L (8-55); AST (SGOT) 33 U/L (5-34); Albumin 3.1 g/dL (3.4-4.8); Alkaline Phosphatase 66 U/L (40-110); Anion Gap 11 mmol/L (10-20); BUN (Urea Nitrogen) 38 mg/dL (8.4-25.7); Bilirubin, Total 0.3 mg/dL (0.2-1.2); Calc. Creatinine Clearance 128 mL/min (70-130); Calcium 8.7 mg/dL (7.8-10.44); Carbon Dioxide 34 mmol/L (23-31); Chloride 103 mmol/L (98-107); Estimated GFR-MDRD 60; Globulin 2.5 g/dL (2.4-3.5); Glucose 127 mg/dL (80-115); Protein, Total 5.6 g/dL (5.8-8.1); Sodium 145 mmol/L (136-145)
[2019-08-11 04:58] LABS: Phosphorus 2.8 mg/dL (2.3-4.7)
[2019-08-11 05:03] LABS: Potassium 2.6 mmol/L (3.5-5.1)
[2019-08-11] MEDS: Potassium Chloride 20 MEQ TAB PO SCH ×3 (05:30→17:17)
[2019-08-11 07:03] LABS: Actual Bicarbonate (HCO3a) 35.7 mEq/L (22-28); CO2 Tension 46.9 mmHg (35.0-45.0); Calcium, Ionized 1.19 mmol/L (1.12-1.30); Carboxyhemoglobin (COHb) 0.6 gm% (0.0-3.0); Hemoglobin (Hb) 12.8 g/dL (14.0-18.0); Potassium - ABG Lab 2.61 mmol/L (3.70-5.30)
[2019-08-11 07:07] LABS: ALV-art Gradient 171.175 (0-20); O2 Tension (PaO2) 55.4 mmHg (> 80.0); Puncture Site RRA
[2019-08-11] MEDS ORDERED: DC Sedation Protocol FS ONE (07:35)
--- NOTE | 2019-08-11 07:47 | RAD ---
EXAM: Single view of the chest HISTORY: Pneumonia COMPARISON: 08/10/2019 FINDINGS: Single view of the chest shows a normal sized cardiomediastinal silhouette. The lines and tubes are unchanged in position. There is slight improvement in the bilateral pleural effusions. The bones are unremarkable. IMPRESSION: Slight improvement in bilateral pleural effusions
[2019-08-11] MEDS: cloNIDine 0.1 MG TAB PO SCH (08:02)
[2019-08-11] MEDS: Aspirin 81 mg Enteric Coated Tablet PER TUBE SCH (08:02)
[2019-08-11] MEDS: Metoprolol Tartrate 50 MG TAB PER TUBE SCH ×2 (08:02→19:54)
[2019-08-11] MEDS: hydrALAZINE 25 MG TAB PER TUBE SCH ×3 (08:02→19:54)
[2019-08-11] MEDS: methylPREDNISolone Sod Succ 40 MG VIAL IVP SCH ×2 (08:03→19:55)
[2019-08-11] MEDS: Clopidogrel Bisulfate 75 MG TAB PO SCH (08:03)
[2019-08-11] MEDS: Enoxaparin Sodium 40 MG/0.4 ML SYRINGE SC SCH (08:03)
[2019-08-11] MEDS: Pantoprazole 40 MG VIAL IVP SCH (08:03)
[2019-08-11] MEDS: Insulin Glargine 45 UNITS in Pre-Filled Syringe 1 EACH SC SCH ×2 (08:09→19:58)
--- NOTE | 2019-08-11 08:11 | PRG ---
DATE OF SERVICE: 08/11/2019 35 minutes of critical care time. SUBJECTIVE: The patient is awake, alert, wants to be extubated. OBJECTIVE: VITAL SIGNS: Temperature 99.1, pulse 97, blood pressure 160/83, O2 saturation 99%. Intake for 24 hours 5312, output 3810. HEENT: Unremarkable. NECK: No adenopathy or JVD. CHEST: Clear to auscultation. CARDIAC: S1, S2 regular. ABDOMEN: Soft, obese, nontender. EXTREMITIES: Trace edema throughout. LABORATORY DATA: White blood cell count 12.4, hematocrit 37.7, and platelet count 320. PH of 7.50, pCO2 of 46, pO2 of 55, that is on CPAP 5, pressure support 10, FiO2 of 40%. Sodium 145, potassium 2.6, chloride 103, CO2 of 34, BUN 38, creatinine 1.2, glucose 127. ASSESSMENT: 1. Acute respiratory failure requiring mechanical ventilation. 2. Influenza with pneumonia. 3. Hyponatremia which is improved. 4. Fluid overload. 5. Acid-base disturbance, which is improved. PLAN: I will go ahead and extubate and observe. The Levaquin can be stopped after today's dose. Hopefully, sent to the floor by tomorrow. Job ID: [id number]
--- NOTE | 2019-08-11 09:42 | PDOC.HOSPP ---
- Subjective Encounter Date: 08/11/19 Encounter Time: 09:40 Subjective: Mr. Hitchcock was seen today in follow-up of respiratory failure due to infulenza A. He has just been extubated. He is a bit dyspneic, but no complaints. - Objective Vital Signs & Weight: Vital Signs (12 hours) Temp Pulse Resp BP Pulse Ox 08/11/19 08:02 96 133/115 H 08/11/19 07:34 84 24 H 90 L 08/11/19 07:17 97 08/11/19 06:47 96 133/115 H 08/11/19 06:32 95 29 H 95 08/11/19 06:00 26 H 08/11/19 04:00 99.1 F 19 08/11/19 02:47 80 18 95 08/11/19 02:35 79 182/88 H 08/11/19 02:00 18 08/11/19 00:00 99.6 F 23 H 08/10/19 22:34 79 18 93 L 08/10/19 22:00 22 H Weight Admit Weight 304 lb Weight 317 lb 10.978 oz Most Recent Monitor Data Heart Rate from ECG 91 NIBP 170/93 NIBP BP-Mean 121 Respiration from ECG 22 SpO2 95 I&O: 08/10/19 08/11/19 08/12/19 06:59 06:59 06:59 Intake Total 3556 5312 300 Output Total 1490 3810 760 Balance 2066 1502 -460 Result Diagrams: 08/11/19 04:06 08/11/19 04:06 Additional Labs: Accuchecks 08/11/19 08/11/19 08/11/19 08:16 04:24 00:25 POC Glucose 89 123 H 135 H 08/10/19 08/10/19 08/10/19 19:40 15:59 11:40 POC Glucose 169 H 210 H 239 H Hospitalist ROS - Medication Medications: Active Medications Generic Name Dose Route Start Last Admin Trade Name Freq PRN Reason Stop Dose Admin Albuterol/Ipratropium 3 ml 08/04/19 18:30 08/11/19 06:32 Duoneb NEB 3 ml [id number] CONNOR Administration Aspirin 81 mg 08/06/19 09:00 08/11/19 08:02 Ecotrin PER TUBE 81 mg DAILY CONNOR Administration Clonidine 0.1 mg 08/08/19 09:00 08/11/19 08:02 Catapres PO 0.1 mg QAM CONNOR Administration Clopidogrel Bisulfate 75 mg 08/07/19 09:00 08/11/19 08:03 Plavix PO 75 mg QAM CONNOR Administration Enoxaparin Sodium 40 mg 08/05/19 09:00 08/11/19 08:03 Lovenox SC 40 mg 0900 CONNOR Administration Hydralazine HCl 25 mg 08/09/19 15:00 08/11/19 08:02 Apresoline PER TUBE 25 mg TID CONNOR Administration Hydralazine HCl 20 mg 08/10/19 13:05 08/11/19 02:35 Apresoline SLOW IVP 20 mg Q2H PRN Administration SPB > 180 Levofloxacin 750 mg/ Device 150 mls @ 100 mls/hr 08/04/19 18:00 08/10/19 17: 14 IVPB 150 mls Q24HR CONNOR Administration Insulin Glargine 45 units/ 0.45 mls @ 0 mls/hr 08/08/19 21:00 08/11/19 08:09 Miscellaneous Medication SC 0.45 mls BID CONNOR Administration Insulin Human Lispro 0 units 08/04/19 16:55 08/10/19 20:14 Humalog SC 3 unit .AGGRESSIVE SLIDING PRN Administration Aggressive Correctional Scale Methylprednisolone Sodium Succinate 20 mg 08/10/19 09:00 08/11/19 08:03 Solu-Medrol IVP 20 mg BID CONNOR Administration Metoprolol Tartrate 50 mg 08/09/19 21:00 08/11/19 08:02 Lopressor PER TUBE 50 mg BID CONNOR Administration Nicotine 21 mg 08/05/19 20:24 08/07/19 02:12 Nicoderm Patch TD 21 mg Q24H PRN Administration Smoking cravings Pantoprazole Sodium 40 mg 08/05/19 09:00 08/11/19 08:03 Protonix IVP 40 mg DAILY CONNOR Administration Potassium Chloride 40 meq 08/11/19 06:00 08/11/19 05:30 K-Dur PO 08/12/19 00:00 40 meq Q6HR CONNOR Administration - Exam Eye: PERRL Heart: RRR (tachycardic), no murmur, no gallops, no rubs, normal peripheral pulses Respiratory: CTAB Gastrointestinal: soft, non-tender, non-distended, normal bowel sounds, no palpable masses, no hepatomegaly, no splenomegaly Extremities: 1+ LE edema (+ chronic venous stasis changes) Hosp A/P (1) Acute respiratory failure with hypoxia Code(s): J96.01 - ACUTE RESPIRATORY FAILURE WITH HYPOXIA Status: Acute (2) Influenza A Code(s): J10.1 - FLU DUE TO OTH IDENT INFLUENZA VIRUS W OTH RESP MANIFEST Status: Acute (3) CAD (coronary artery disease) Code(s): I25.10 - ATHSCL HEART DISEASE OF [place] CORONARY ARTERY W/O ANG PCTRS Status: Chronic (4) Diabetes type 2, controlled Code(s): E11.9 - TYPE 2 DIABETES MELLITUS WITHOUT COMPLICATIONS Status: Chronic (5) Hypertension Code(s): I10 - ESSENTIAL (PRIMARY) HYPERTENSION Status: Chronic (6) Hypokalemia Code(s): E87.6 - HYPOKALEMIA Status: Acute - Plan * Acute respiratory failure with hypoxemia due to Influenza A- slowing improving he is now extubated and on high flow oxygen * Will discontinue Levaquin after today's dose * DM-blood glucose is stable * Mild Hypernatremia- slightly improved * HTN- blood pressure is a bit elevated- will re-start Losartan and Procardia * Hypokalemia- replace
[2019-08-11] MEDS ORDERED: Dextrose 5% in Water 1,000 ML IV PRN (13:51)
[2019-08-11] MEDS ORDERED: Sodium Chloride 0.9% (PF) 10 ML VIAL FS PRN (13:52)
[2019-08-11] MEDS ORDERED: Nicotine 21 MG PATCH TD PRN (13:52)
[2019-08-11] MEDS ORDERED: DO NOT USE PRE-EXISTING LYTE PROTOCOL FS SCH (14:00)
[2019-08-11] MEDS ORDERED: ALL FLUIDS SHOULD BE DEXTROSE FREE IF POSSIBLE FS SCH (14:00)
[2019-08-11] MEDS: Acetaminophen 650 MG/20.3 ML UDCUP PER TUBE PRN ×2 (15:49→20:57)
[2019-08-11] MEDS ORDERED: Dextrose 50 % In Water 50 ML SYRINGE ONE (19:48)
[2019-08-11] MEDS: Dextrose 50% Abboject 50 ML SYRINGE SLOW IVP PRN (19:49)
[2019-08-11] MEDS: Losartan 25 MG TAB PO SCH (19:54)
[2019-08-11] MEDS ORDERED: Losartan 25 MG TAB PO SCH (21:00)
[2019-08-11] MEDS: hydrALAZINE 20 MG/ML VIAL SLOW IVP PRN ×2 (21:08→23:02)
[2019-08-11] MEDS ORDERED: Furosemide 40 MG/4 ML VIAL ONE (21:51)
[2019-08-11] MEDS ORDERED: Potassium Chloride 20 MEQ TAB PO SCH (22:00)
[2019-08-11] MEDS ORDERED: Furosemide 40 MG/4 ML VIAL SLOW IVP SCH (22:00)
[2019-08-11] MEDS ORDERED: Acetaminophen/Codeine 30-300mg Tablet PO PRN (22:49)
[2019-08-11] MEDS ORDERED: ALPRAZolam 0.25 MG TAB PO PRN (22:50)
[2019-08-12] MEDS: Potassium Chloride 20 MEQ TAB PO SCH
[2019-08-12] MEDS: HYDROcodone/Acetaminophen 10/325 mg Tablet PO PRN ×3 (00:49→19:56)
[2019-08-12] MEDS: Dextrose 50% Abboject 50 ML SYRINGE SLOW IVP PRN (00:56)
[2019-08-12] MEDS: hydrALAZINE 20 MG/ML VIAL SLOW IVP PRN ×2 (02:02→05:40)
[2019-08-12 05:10] LABS: ALT (SGPT) 95 U/L (8-55); AST (SGOT) 51 U/L (5-34); Albumin 3.3 g/dL (3.4-4.8); Alkaline Phosphatase 69 U/L (40-110); Anion Gap 11 mmol/L (10-20); BUN (Urea Nitrogen) 26 mg/dL (8.4-25.7); Bilirubin, Total 0.8 mg/dL (0.2-1.2); Calc. Creatinine Clearance 137 mL/min (70-130); Calcium 8.6 mg/dL (7.8-10.44); Carbon Dioxide 35 mmol/L (23-31); Chloride 101 mmol/L (98-107); Estimated GFR-MDRD 65; Globulin 2.6 g/dL (2.4-3.5); Glucose 88 mg/dL (80-115); Magnesium 1.8 mg/dL (1.6-2.6); Protein, Total 5.9 g/dL (5.8-8.1); Sodium 144 mmol/L (136-145)
[2019-08-12 05:15] LABS: Phosphorus 2.7 mg/dL (2.3-4.7); Potassium 2.8 mmol/L (3.5-5.1)
[2019-08-12] MEDS ORDERED: CCU Electrolyte Replacement 1 EACH FS SCH (05:23)
[2019-08-12] MEDS ORDERED: PHOS-NAK 1 PKT PACK PO PRN ×2 (05:27)
[2019-08-12] MEDS ORDERED: Magnesium 2 GM/50 ML 2 GM in Premix Bag 1 BAG IVPB PRN (05:27)
[2019-08-12] MEDS ORDERED: Potassium Chloride 40 MEQ in Premix Bag 1 BAG IVPB PRN (05:27)
[2019-08-12] MEDS ORDERED: Potassium Phosphate 12 MMOL in Sodium Chloride 0.9% 250 ML 250 ML IV PRN (05:27)
[2019-08-12] MEDS ORDERED: Potassium Phosphate 15 MMOL in Sodium Chloride 0.9% 250 ML 250 ML IV PRN (05:27)
[2019-08-12] MEDS ORDERED: Magnesium Oxide 400 MG TAB PO PRN ×2 (05:27)
[2019-08-12] MEDS ORDERED: Potassium Chloride 40 MEQ in Sodium Chloride 0.9% 250 ML 250 ML IVPB PRN (05:27)
[2019-08-12] MEDS ORDERED: Potassium Phosphate 9 MMOL in Sodium Chloride 0.9% 100 ML IVPB PRN (05:27)
[2019-08-12] MEDS ORDERED: CCU ELECTROLYTE REPLACEMENT PROTOCOL FS PRN (05:27)
[2019-08-12] MEDS: Potassium Chloride 20 MEQ TAB PO PRN (05:40)
[2019-08-12] MEDS ORDERED: Furosemide 40 MG/4 ML VIAL SLOW IVP SCH (06:00)
[2019-08-12 06:15] LABS: #Eosinphils 0.1 thou/uL (0.0-0.7); #Lymphocytes 1.3 thou/uL (1.20-3.40); #Monocytes 0.8 thou/uL (0.11-0.59); #Neutrophils 7.1 thou/uL (1.40-6.50); %Basophils 0.5 % (0.0-1.0); %Eosinophils 1.4 % (0.0-10.0); %Lymphocytes 14.2 % (21.0-51.0); %Monocytes 8.1 % (0.0-10.0); %Neutrophils 75.9 % (42.0-75.0); Hemoglobin 12.7 g/dL (14.0-18.0); Mean Corpuscular HGB CONC 29.7 g/dL (32.0-36.0); Mean Corpuscular Hemoglobin 25.2 pg (27.0-31.0); Mean Corpuscular Volume 84.9 fL (78.0-98.0); Mean Platelet Volume 7.4 fL (7.4-10.4); Platelet Count 344 thou/uL (130-400); RBC Distribution Width 17.6 % (11.5-14.5); Red Blood Cell (RBC) Count 5.05 mill/uL (4.70-6.10); White Blood Cell (WBC) Count 9.4 thou/uL (4.8-10.8)
[2019-08-12] MEDS: Aspirin 81 mg Enteric Coated Tablet PER TUBE SCH (08:16)
[2019-08-12] MEDS: Metoprolol Tartrate 50 MG TAB PER TUBE SCH ×2 (08:16→20:01)
[2019-08-12] MEDS: cloNIDine 0.1 MG TAB PO SCH (08:16)
[2019-08-12] MEDS: hydrALAZINE 25 MG TAB PER TUBE SCH ×3 (08:16→20:00)
[2019-08-12] MEDS: NIFEdipine XL 30 MG TAB PO SCH (08:17)
[2019-08-12] MEDS: Enoxaparin Sodium 40 MG/0.4 ML SYRINGE SC SCH (08:18)
[2019-08-12] MEDS: methylPREDNISolone Sod Succ 40 MG VIAL IVP SCH ×2 (08:18→20:02)
[2019-08-12] MEDS: Pantoprazole 40 MG VIAL IVP SCH (08:18)
[2019-08-12] MEDS: Insulin Glargine 45 UNITS in Pre-Filled Syringe 1 EACH SC SCH ×2 (08:23→20:02)
--- NOTE | 2019-08-12 08:42 | PDOC.HOSPP ---
- Subjective Encounter Date: 08/12/19 Encounter Time: 08:42 Subjective: Mr. Hitchcock was seen today in follow-up of respiratory failure due to influenza A. He was placed on BiPAP last night. He notes severe back pain last night, but says it is better today. - Objective Vital Signs & Weight: Vital Signs (12 hours) Temp Pulse Resp BP Pulse Ox 08/12/19 08:17 79 08/12/19 08:16 79 133/115 H 08/12/19 07:56 90 L 08/12/19 07:37 79 23 H 90 L 08/12/19 04:00 99.1 F 08/12/19 02:20 87 28 H 94 L 08/12/19 00:00 99.0 F 92 L 08/11/19 22:19 81 24 H 94 L Weight Admit Weight 304 lb Weight 316 lb 9.341 oz Most Recent Monitor Data Heart Rate from ECG 81 NIBP 170/86 NIBP BP-Mean 111 Respiration from ECG 26 SpO2 90 I&O: 08/11/19 08/12/19 08/13/19 06:59 06:59 06:59 Intake Total 5312 2806.7 0 Output Total 3810 5645 570 Balance 1502 -2838.3 -570 Result Diagrams: 08/12/19 05:38 08/12/19 04:15 Additional Labs: Accuchecks 08/12/19 08/12/19 08/12/19 08:14 04:10 00:35 POC Glucose 92 83 69 L 08/11/19 08/11/19 08/11/19 20:21 19:48 15:39 POC Glucose 111 H 59 L* 73 08/11/19 08/11/19 13:23 11:21 POC Glucose 81 70 Hospitalist ROS - Medication Medications: Active Medications Generic Name Dose Route Start Last Admin Trade Name Freq PRN Reason Stop Dose Admin Acetaminophen 650 mg 08/11/19 13:51 08/11/19 20:57 Tylenol Elixir PER TUBE 650 mg Q4H PRN Administration Fever > 101 Hydrocodone Bitart/Acetaminophen 1 tab 08/12/19 00:27 08/12/19 03:51 [place] 10/325 PO 1 tab Q4H PRN Administration Pain Albuterol/Ipratropium 3 ml 08/11/19 14:30 08/12/19 07:37 Duoneb NEB 3 ml [id number] CONNOR Administration Aspirin 81 mg 08/12/19 09:00 08/12/19 08:16 Ecotrin PER TUBE 81 mg DAILY CONNOR Administration Clonidine 0.1 mg 08/12/19 09:00 08/12/19 08:16 Catapres PO 0.1 mg QAM CONNOR Administration Dextrose/Water 25 gm 08/11/19 13:52 08/12/19 00:56 Dextrose 50% SLOW IVP 25 gm PRN PRN Administration Hypoglycemia Enoxaparin Sodium 40 mg 08/12/19 09:00 08/12/19 08:18 Lovenox SC 40 mg 0900 CONNOR Administration Hydralazine HCl 25 mg 08/11/19 15:00 08/12/19 08:16 Apresoline PER TUBE 25 mg TID CONNOR Administration Hydralazine HCl 20 mg 08/11/19 13:53 08/12/19 05:40 Apresoline SLOW IVP 20 mg Q2H PRN Administration SPB > 180 Levofloxacin 750 mg/ Device 150 mls @ 100 mls/hr 08/11/19 14:00 08/11/19 14: 11 IVPB 150 mls Q24HR CONNOR Administration Insulin Glargine 45 units/ 0.45 mls @ 0 mls/hr 08/11/19 21:00 08/12/19 08:23 Miscellaneous Medication SC Not Given BID CONNOR Dexmedetomidine HCl 400 mcg/ 100 mls @ 0 mls/hr 08/12/19 02:15 08/12/19 05:46 Sodium Chloride IVPB 100 mls INF CONNOR Administration Protocol Titrate Losartan Potassium 50 mg 08/11/19 21:00 08/11/19 19:54 Cozaar PO 50 mg HS CONNOR Administration Methylprednisolone Sodium Succinate 20 mg 08/11/19 21:00 08/12/19 08:18 Solu-Medrol IVP 20 mg BID CONNOR Administration Metoprolol Tartrate 50 mg 08/11/19 21:00 08/12/19 08:16 Lopressor PER TUBE 50 mg BID CONNOR Administration Nifedipine 30 mg 08/12/19 09:00 08/12/19 08:17 Procardia Xl PO 30 mg DAILY CONNOR Administration Pantoprazole Sodium 40 mg 08/12/19 09:00 08/12/19 08:18 Protonix IVP 40 mg DAILY CONNOR Administration Potassium Chloride 40 meq 08/12/19 05:27 08/12/19 05:40 K-Dur PO 40 meq ASDIR PRN Administration FOR SERUM K+ 2.5 - 3.5 - Exam Eye: PERRL Heart: RRR, no murmur, no gallops Gastrointestinal: soft, non-tender, non-distended, normal bowel sounds, no palpable masses, no hepatomegaly Extremities: no cyanosis, 1+ LE edema Psychiatric: A&O x 3 Hosp A/P (1) Acute respiratory failure with hypoxia Code(s): J96.01 - ACUTE RESPIRATORY FAILURE WITH HYPOXIA Status: Acute (2) Influenza A Code(s): J10.1 - FLU DUE TO OTH IDENT INFLUENZA VIRUS W OTH RESP MANIFEST Status: Acute (3) CAD (coronary artery disease) Code(s): I25.10 - ATHSCL HEART DISEASE OF [place] CORONARY ARTERY W/O ANG PCTRS Status: Chronic (4) Diabetes type 2, controlled Code(s): E11.9 - TYPE 2 DIABETES MELLITUS WITHOUT COMPLICATIONS Status: Chronic (5) Hypertension Code(s): I10 - ESSENTIAL (PRIMARY) HYPERTENSION Status: Chronic (6) Hypokalemia Code(s): E87.6 - HYPOKALEMIA Status: Acute - Plan * Acute respiratory failure with hypoxemia due to Influenza A- slowing improving he is now extubated and on high flow oxygen * Will discontinue Levaquin after today's dose * DM-blood glucose is stable * Hypokalemia- replace as per the electrolyte protocol * Mild Hypernatremia- corrected * HTN- continue home medications
[2019-08-12] MEDS ORDERED: NIFEdipine XL 30 MG TAB PO SCH (09:00)
[2019-08-12] MEDS ORDERED: Furosemide 20 MG/2 ML VIAL IVP SCH (09:00)
--- NOTE | 2019-08-12 09:10 | PRG ---
DATE OF SERVICE: 08/12/2019 SUBJECTIVE: The patient was extubated yesterday; however, after several hours, he required institution of high-flow oxygen and he also needs BiPAP last night. He got a couple doses of diuretics last night. He was able to come off the BiPAP back on to the high-flow this morning. Still appears to be struggling somewhat. OBJECTIVE: VITAL SIGNS: Temperature is 99.1, pulse 81, blood pressure 170/86, O2 saturation in the low 90s on 30% high-flow oxygen. Intake 2806, output 2645. HEENT: Unremarkable. NECK: No adenopathy or JVD. LUNGS: Coarse breath sounds bilaterally. CARDIAC: S1 and S2, regular. ABDOMEN: Morbidly obese. Soft. EXTREMITIES: No edema. LABORATORY DATA: Sodium 144, potassium 2.8, chloride 101, CO2 of 35, BUN 26, creatinine 1.1, and glucose 88. White blood cell count 9.4, hematocrit 42.9, and platelet count 344. ASSESSMENT: 1. Status post respiratory failure, requiring mechanical ventilation. 2. Status post influenza with pneumonia. 3. Fluid overload. PLAN: I will go ahead and give him another dose of diuretics. He is currently receiving IV potassium and the level will be checked again this afternoon as I think he will probably need more potassium. I will recheck x-ray tomorrow. He will alternate between high-flow oxygen and BiPAP as needed. Job ID: [id number]
[2019-08-12] MEDS: Clopidogrel Bisulfate 75 MG TAB PO SCH (09:11)
[2019-08-12 15:39] LABS: Potassium 3.5 mmol/L (3.5-5.1)
[2019-08-12] MEDS: Losartan 25 MG TAB PO SCH (20:01)
[2019-08-13] MEDS: HYDROcodone/Acetaminophen 10/325 mg Tablet PO PRN ×3 (00:21→20:03)
[2019-08-13] MEDS: HumaLOG 300 UNITS/3 ML VIAL SC PRN ×4 (00:37→20:09)
[2019-08-13] MEDS: hydrALAZINE 20 MG/ML VIAL SLOW IVP PRN ×2 (03:21→17:12)
[2019-08-13 04:52] LABS: #Eosinphils 0.1 thou/uL (0.0-0.7); #Lymphocytes 1.3 thou/uL (1.20-3.40); #Monocytes 0.6 thou/uL (0.11-0.59); #Neutrophils 6.2 thou/uL (1.40-6.50); %Basophils 0.4 % (0.0-1.0); %Eosinophils 1.2 % (0.0-10.0); %Lymphocytes 15.8 % (21.0-51.0); %Monocytes 7.5 % (0.0-10.0); Hemoglobin 13.1 g/dL (14.0-18.0); Mean Corpuscular Hemoglobin 27.5 pg (27.0-31.0); Mean Corpuscular Volume 85.9 fL (78.0-98.0); Mean Platelet Volume 7.4 fL (7.4-10.4); Platelet Count 309 thou/uL (130-400); RBC Distribution Width 17.4 % (11.5-14.5); Red Blood Cell (RBC) Count 4.78 mill/uL (4.70-6.10); White Blood Cell (WBC) Count 8.3 thou/uL (4.8-10.8)
[2019-08-13 05:15] LABS: ALT (SGPT) 70 U/L (8-55); AST (SGOT) 30 U/L (5-34); Albumin 3.4 g/dL (3.4-4.8); Alkaline Phosphatase 70 U/L (40-110); Anion Gap 12 mmol/L (10-20); BUN (Urea Nitrogen) 31 mg/dL (8.4-25.7); Bilirubin, Total 0.7 mg/dL (0.2-1.2); Calc. Creatinine Clearance 125 mL/min (70-130); Calcium 8.7 mg/dL (7.8-10.44); Carbon Dioxide 34 mmol/L (23-31); Chloride 99 mmol/L (98-107); Estimated GFR-MDRD 58; Globulin 2.7 g/dL (2.4-3.5); Glucose 198 mg/dL (80-115); Magnesium 1.9 mg/dL (1.6-2.6); Protein, Total 6.1 g/dL (5.8-8.1); Sodium 142 mmol/L (136-145)
[2019-08-13 05:31] LABS: Phosphorus 3.9 mg/dL (2.3-4.7)
[2019-08-13] MEDS: Potassium Chloride 20 MEQ TAB PO PRN (05:49)
--- NOTE | 2019-08-13 08:19 | RAD ---
EXAM: Single view of the chest HISTORY: Pneumonia COMPARISON: 08/11/2019 FINDINGS: Single view of the chest shows an enlarged but stable cardiomediastinal silhouette. There i s no evidence of consolidation, mass, or pleural effusion. The bones are unremarkable. IMPRESSION: No evidence of acute cardiopulmonary disease
[2019-08-13] MEDS: methylPREDNISolone Sod Succ 40 MG VIAL IVP SCH (08:56)
[2019-08-13] MEDS: cloNIDine 0.1 MG TAB PO SCH (09:00)
[2019-08-13] MEDS: Pantoprazole 40 MG VIAL IVP SCH (09:00)
[2019-08-13] MEDS: Aspirin 81 mg Enteric Coated Tablet PER TUBE SCH (09:00)
[2019-08-13] MEDS: Metoprolol Tartrate 50 MG TAB PER TUBE SCH ×2 (09:01→20:03)
[2019-08-13] MEDS: hydrALAZINE 25 MG TAB PER TUBE SCH (09:01)
[2019-08-13] MEDS: NIFEdipine XL 30 MG TAB PO SCH (09:01)
[2019-08-13] MEDS: Clopidogrel Bisulfate 75 MG TAB PO SCH (09:01)
[2019-08-13] MEDS: Enoxaparin Sodium 40 MG/0.4 ML SYRINGE SC SCH (09:02)
[2019-08-13] MEDS: Insulin Glargine 45 UNITS in Pre-Filled Syringe 1 EACH SC SCH ×2 (09:06→20:08)
--- NOTE | 2019-08-13 09:46 | PDOC.HOSPP ---
- Subjective Encounter Date: 08/13/19 Encounter Time: 09:44 Subjective: Mr. Hitchcock was seen today in follow-up of respiratory failure. He isfeeling weak. He is breathing better. He now notes some back pain. - Objective Vital Signs & Weight: Vital Signs (12 hours) Temp Pulse Resp BP Pulse Ox 08/13/19 09:01 74 170/97 H 08/13/19 09:00 170/97 H 08/13/19 08:00 98.3 F 93 L 08/13/19 07:44 67 08/13/19 07:43 68 23 H 97 08/13/19 04:00 98.7 F 08/13/19 03:21 78 187/104 H 08/13/19 03:10 94 L 08/13/19 03:08 95 08/13/19 00:00 98.4 F 08/12/19 23:01 94 L Weight Admit Weight 304 lb Weight 317 lb 3.923 oz Most Recent Monitor Data Heart Rate from ECG 70 NIBP 167/100 NIBP BP-Mean 113 Respiration from ECG 22 SpO2 93 I&O: 08/12/19 08/13/19 08/14/19 06:59 06:59 06:59 Intake Total 2806.7 1857 Output Total 5645 2685 110 Balance -2838.3 -828 -110 Result Diagrams: 08/13/19 03:45 08/13/19 03:45 Additional Labs: Accuchecks 08/13/19 08/13/19 08/13/19 08:23 04:00 00:36 POC Glucose 104 207 H 202 H 08/12/19 08/12/19 08/12/19 20:09 15:13 11:15 POC Glucose 176 H 197 H 113 H Hospitalist ROS - Medication Medications: Active Medications Generic Name Dose Route Start Last Admin Trade Name Freq PRN Reason Stop Dose Admin Acetaminophen 650 mg 08/11/19 13:51 08/11/19 20:57 Tylenol Elixir PER TUBE 650 mg Q4H PRN Administration Fever > 101 Hydrocodone Bitart/Acetaminophen 1 tab 08/12/19 00:27 08/13/19 00:21 [place] 10/325 PO 1 tab Q4H PRN Administration Pain Albuterol/Ipratropium 3 ml 08/11/19 14:30 08/13/19 07:43 Duoneb NEB 3 ml [id number] CONNOR Administration Aspirin 81 mg 08/12/19 09:00 08/13/19 09:00 Ecotrin PER TUBE 81 mg DAILY CONNOR Administration Clonidine 0.1 mg 08/12/19 09:00 08/13/19 09:00 Catapres PO 0.1 mg QAM CONNOR Administration Clopidogrel Bisulfate 75 mg 08/12/19 09:00 08/13/19 09:01 Plavix PO 75 mg QAM CONNOR Administration Dextrose/Water 25 gm 08/11/19 13:52 08/12/19 00:56 Dextrose 50% SLOW IVP 25 gm PRN PRN Administration Hypoglycemia Enoxaparin Sodium 40 mg 08/12/19 09:00 08/13/19 09:02 Lovenox SC 40 mg 0900 CONNOR Administration Hydralazine HCl 25 mg 08/11/19 15:00 08/13/19 09:01 Apresoline PER TUBE 25 mg TID CONNOR Administration Hydralazine HCl 20 mg 08/11/19 13:53 08/13/19 03:21 Apresoline SLOW IVP 20 mg Q2H PRN Administration SPB > 180 Insulin Glargine 45 units/ 0.45 mls @ 0 mls/hr 08/11/19 21:00 08/13/19 09:06 Miscellaneous Medication SC 0.45 mls BID CONNOR Administration Dexmedetomidine HCl 400 mcg/ 100 mls @ 0 mls/hr 08/12/19 02:15 08/13/19 09:26 Sodium Chloride IVPB 100 mls INF CONNOR Administration Protocol Titrate Insulin Human Lispro 0 units 08/11/19 13:52 08/13/19 04:03 Humalog SC 6 unit .AGGRESSIVE SLIDING PRN Administration Aggressive Correctional Scale Losartan Potassium 50 mg 08/11/19 21:00 08/12/19 20:01 Cozaar PO 50 mg HS CONNOR Administration Methylprednisolone Sodium Succinate 20 mg 08/11/19 21:00 08/13/19 08:56 Solu-Medrol IVP 20 mg BID CONNOR Administration Metoprolol Tartrate 50 mg 08/11/19 21:00 08/13/19 09:01 Lopressor PER TUBE 50 mg BID CONNOR Administration Nifedipine 30 mg 08/12/19 09:00 08/13/19 09:01 Procardia Xl PO 30 mg DAILY [facility]NOR Administration Pantoprazole Sodium 40 mg 08/12/19 09:00 08/13/19 09:00 Protonix IVP 40 mg DAILY [facility]NOR Administration Potassium Chloride 40 meq 08/12/19 05:27 08/13/19 05:49 K-Dur PO 40 meq ASDIR PRN Administration FOR SERUM K+ 2.5 - 3.5 - Exam Eye: PERRL Heart: RRR, no murmur, no gallops, no rubs, normal peripheral pulses Respiratory: CTAB (+ course breath sounds), no rales, no ronchi, normal chest expansion, no tachypnea Gastrointestinal: soft, non-tender, non-distended, normal bowel sounds, no palpable masses, no hepatomegaly Extremities: no cyanosis, no clubbing, no edema Hosp A/P (1) Acute respiratory failure with hypoxia Code(s): J96.01 - ACUTE RESPIRATORY FAILURE WITH HYPOXIA Status: Acute (2) Influenza A Code(s): J10.1 - FLU DUE TO OTH IDENT INFLUENZA VIRUS W OTH RESP MANIFEST Status: Acute (3) CAD (coronary artery disease) Code(s): I25.10 - ATHSCL HEART DISEASE OF [place] CORONARY ARTERY W/O ANG PCTRS Status: Chronic (4) Diabetes type 2, controlled Code(s): E11.9 - TYPE 2 DIABETES MELLITUS WITHOUT COMPLICATIONS Status: Chronic (5) Hypertension Code(s): I10 - ESSENTIAL (PRIMARY) HYPERTENSION Status: Chronic (6) Hypokalemia Code(s): E87.6 - HYPOKALEMIA Status: Acute - Plan * Acute respiratory failure with hypoxemia due to Influenza A- improving- he is now off high flow oxygen. He is still requiring some BiPAP at night * COPD- stable * Deconditioning- start PT/OT * DM-blood glucose is stable * Hypokalemia- continue to replace Potassium * HTN- not controlled- will increase the dose of Hydralazine
[2019-08-13] MEDS ORDERED: Furosemide 40 MG/4 ML VIAL SLOW IVP SCH (11:30)
[2019-08-13] MEDS ORDERED: AcetaZOLAMIDE ER 500 MG CAP PO SCH (11:30)
--- NOTE | 2019-08-13 11:52 | PRG ---
DATE OF SERVICE: 08/13/2019 INTERVAL HISTORY: The patient is doing great from respiratory standpoint. He remains quite weak. His mentation is improving, and he is not combative anymore. He remains on a little bit of Precedex, but he is going to be weaned away through the day. He denies any fevers or chills, and otherwise he is returning to his usual state of health. PHYSICAL EXAMINATION: VITAL SIGNS: Afebrile, pulse 66, blood pressure 172/97, respirations 19, saturation 93%, currently on 3 L nasal cannula. GENERAL: The patient is awake and alert, in no apparent distress. LUNGS: Reduced air entry, likely owing to body habitus. There is not much of a prolonged expiratory phase. Dependent crackles and rhonchi are both present. No wheezing. HEART: Normal rate, regular. ABDOMEN: Soft, nontender, and nondistended. Bowel sounds are positive. MUSCULOSKELETAL: No cyanosis or clubbing. There is trace to 1+ pitting throughout. NEUROLOGIC: Grossly nonfocal. LABORATORY DATA: WBC 8.3, hemoglobin 13.1, platelets 309,000. INR 1.2. PH 7.5, pCO2 of 46, PO2 of 55. Creatinine 1.26, which is stable, BUN 31, bicarb 34, potassium 3.0. Basic metabolic profile is otherwise unremarkable. Liver function studies are normal. Phosphorus 3.9, magnesium falls within the normal limits. Vancomycin 18.1. Respiratory culture, influenza A and B, urine culture, and blood culture are all negative. IMAGING: Chest x-ray demonstrates no evidence of acute cardiopulmonary process. That being said, there is some degree of cephalization and pulmonary vascular congestion noted. There is a possibility of left-sided layering effusion. ASSESSMENT: 1. Acute hypoxic respiratory failure. 2. Community-acquired pneumonia secondary to influenza. DISCUSSION AND PLAN: We will continue replacing potassium. Now that he is tolerating p.o., we will switch all supplementation over to oral. I will continue diuresing the patient through time. We will be on and off BiPAP through the day and will work on strengthening as we wean away the Precedex. Pulmonary/Critical Care will continue to follow along. Job ID: [id number]
[2019-08-13] MEDS: Potassium Chloride 20 MEQ TAB PO SCH ×2 (13:10→17:01)
[2019-08-13] MEDS: predniSONE 20 MG TAB PO SCH ×2 (14:02→14:19)
[2019-08-13] MEDS: hydrALAZINE 25 MG TAB PO SCH ×2 (14:19→20:02)
[2019-08-13] MEDS: Losartan 25 MG TAB PO SCH (20:03)
[2019-08-13] MEDS ORDERED: Melatonin 3 MG TAB PO PRN (21:29)
[2019-08-14] MEDS: HYDROcodone/Acetaminophen 10/325 mg Tablet PO PRN ×5 (00:06→20:31)
[2019-08-14 04:08] LABS: Anion Gap 13 mmol/L (10-20); BUN (Urea Nitrogen) 33 mg/dL (8.4-25.7); Calc. Creatinine Clearance 128 mL/min (70-130); Calcium 8.9 mg/dL (7.8-10.44); Carbon Dioxide 29 mmol/L (23-31); Chloride 101 mmol/L (98-107); Estimated GFR-MDRD 60; Glucose 110 mg/dL (80-115); Potassium 3.1 mmol/L (3.5-5.1); Sodium 140 mmol/L (136-145)
[2019-08-14 04:11] LABS: #Eosinphils 0.1 thou/uL (0.0-0.7); #Lymphocytes 1.5 thou/uL (1.20-3.40); #Neutrophils 9.3 thou/uL (1.40-6.50); %Basophils 0.1 % (0.0-1.0); %Lymphocytes 12.7 % (21.0-51.0); %Monocytes 8.2 % (0.0-10.0); %Neutrophils 78.1 % (42.0-75.0); Hemoglobin 12.9 g/dL (14.0-18.0); Mean Corpuscular HGB CONC 33.3 g/dL (32.0-36.0); Mean Corpuscular Hemoglobin 28.3 pg (27.0-31.0); Mean Corpuscular Volume 84.9 fL (78.0-98.0); Mean Platelet Volume 7.3 fL (7.4-10.4); Platelet Count 313 thou/uL (130-400); RBC Distribution Width 17.8 % (11.5-14.5); Red Blood Cell (RBC) Count 4.57 mill/uL (4.70-6.10); White Blood Cell (WBC) Count 11.9 thou/uL (4.8-10.8)
[2019-08-14] MEDS: Potassium Chloride 20 MEQ TAB PO PRN (05:37)
--- NOTE | 2019-08-14 09:07 | PDOC.HOSPP ---
- Subjective Encounter Date: 08/14/19 Encounter Time: 09:05 Subjective: Mr. Hitchcock was seen today in follow-up of respiratory failure due to influenza A. He is looking much better. He says he is breathing better. He says he is having trouble sleeping, and wants to take his own Lunesta. - Objective Vital Signs & Weight: Vital Signs (12 hours) Temp Pulse Resp Pulse Ox 08/14/19 08:20 92 L 08/14/19 08:19 88 22 H 92 L 08/14/19 04:00 97.9 F 08/14/19 03:06 96 08/14/19 00:00 98.2 F 08/13/19 23:27 97 Weight Admit Weight 304 lb Weight 310 lb 6.574 oz Most Recent Monitor Data Heart Rate from ECG 82 NIBP 157/81 NIBP BP-Mean 101 Respiration from ECG 12 SpO2 96 I&O: 08/13/19 08/14/19 08/15/19 06:59 06:59 06:59 Intake Total 1857 1757 Output Total 5317 3696 Balance -828 -1018 Result Diagrams: 08/14/19 02:19 08/14/19 02:19 Additional Labs: Accuchecks 08/14/19 08/14/19 08/13/19 03:47 00:05 20:05 POC Glucose 113 H 131 H 184 H 08/13/19 08/13/19 15:55 11:50 POC Glucose 159 H 142 H Hospitalist ROS - Medication Medications: Active Medications Generic Name Dose Route Start Last Admin Trade Name Freq PRN Reason Stop Dose Admin Acetaminophen 650 mg 08/11/19 13:51 08/11/19 20:57 Tylenol Elixir PER TUBE 650 mg Q4H PRN Administration Fever > 101 Hydrocodone Bitart/Acetaminophen 1 tab 08/12/19 00:27 08/14/19 04:52 [place] 10/325 PO 1 tab Q4H PRN Administration Pain Albuterol/Ipratropium 3 ml 08/11/19 14:30 08/14/19 08:19 Duoneb NEB 3 ml [id number] CONNOR Administration Aspirin 81 mg 08/12/19 09:00 08/13/19 09:00 Ecotrin PER TUBE 81 mg DAILY CONNOR Administration Clonidine 0.1 mg 08/12/19 09:00 08/13/19 09:00 Catapres PO 0.1 mg QAM CONNOR Administration Clopidogrel Bisulfate 75 mg 08/12/19 09:00 08/13/19 09:01 Plavix PO 75 mg QAM CONNOR Administration Dextrose/Water 25 gm 08/11/19 13:52 08/12/19 00:56 Dextrose 50% SLOW IVP 25 gm PRN PRN Administration Hypoglycemia Enoxaparin Sodium 40 mg 08/12/19 09:00 08/13/19 09:02 Lovenox SC 40 mg 0900 CONNOR Administration Hydralazine HCl 20 mg 08/11/19 13:53 08/13/19 17:12 Apresoline SLOW IVP 20 mg Q2H PRN Administration SPB > 180 Hydralazine HCl 50 mg 08/13/19 15:00 08/13/19 20:02 Apresoline PO 50 mg TID CONNOR Administration Insulin Glargine 45 units/ 0.45 mls @ 0 mls/hr 08/11/19 21:00 08/13/19 20:08 Miscellaneous Medication SC 0.45 mls BID CONNOR Administration Dexmedetomidine HCl 400 mcg/ 100 mls @ 0 mls/hr 08/12/19 02:15 08/13/19 09:26 Sodium Chloride IVPB 100 mls INF CONNOR Administration Protocol Titrate Insulin Human Lispro 0 units 08/11/19 13:52 08/13/19 20:09 Humalog SC 3 unit .AGGRESSIVE SLIDING PRN Administration Aggressive Correctional Scale Losartan Potassium 50 mg 08/11/19 21:00 08/13/19 20:03 Cozaar PO 50 mg HS CONNOR Administration Melatonin 6 mg 08/13/19 21:29 08/13/19 22:07 Melatonin PO 6 mg HSPRN PRN Administration Insomnia Metoprolol Tartrate 50 mg 08/11/19 21:00 08/13/19 20:03 Lopressor PER TUBE 50 mg BID CONNOR Administration Nifedipine 30 mg 08/12/19 09:00 08/13/19 09:01 Procardia Xl PO 30 mg DAILY CONNOR Administration Pantoprazole Sodium 40 mg 08/12/19 09:00 08/13/19 09:00 Protonix IVP 40 mg DAILY CONNOR Administration Potassium Chloride 40 meq 08/12/19 05:27 08/14/19 05:37 K-Dur PO 40 meq ASDIR PRN Administration FOR SERUM K+ 2.5 - 3.5 - Exam Eye: PERRL Heart: RRR, no murmur, no gallops, no rubs, normal peripheral pulses Respiratory: CTAB, no wheezes, no rales, no ronchi, normal chest expansion, no tachypnea, normal percussion Gastrointestinal: soft, non-tender, non-distended, normal bowel sounds, no palpable masses, no hepatomegaly Extremities: no cyanosis, no edema Hosp A/P (1) Acute respiratory failure with hypoxia Code(s): J96.01 - ACUTE RESPIRATORY FAILURE WITH HYPOXIA Status: Acute (2) Influenza A Code(s): J10.1 - FLU DUE TO OTH IDENT INFLUENZA VIRUS W OTH RESP MANIFEST Status: Acute (3) CAD (coronary artery disease) Code(s): I25.10 - ATHSCL HEART DISEASE OF [place] CORONARY ARTERY W/O ANG PCTRS Status: Chronic (4) Diabetes type 2, controlled Code(s): E11.9 - TYPE 2 DIABETES MELLITUS WITHOUT COMPLICATIONS Status: Chronic (5) Hypertension Code(s): I10 - ESSENTIAL (PRIMARY) HYPERTENSION Status: Chronic (6) Hypokalemia Code(s): E87.6 - HYPOKALEMIA Status: Acute - Plan * Acute respiratory failure with hypoxemia due to Influenza A-he continues to improve * COPD- stable * Deconditioning- start PT/OT * DM-blood glucose is stable * Hypokalemia- continue to replace Potassium- slowing improving * HTN- beginning to trend better * I suspect he can be moved out of the ICU- [facility]
[2019-08-14] MEDS: Aspirin 81 mg Enteric Coated Tablet PER TUBE SCH (09:31)
[2019-08-14] MEDS: predniSONE 20 MG TAB PO SCH (09:31)
[2019-08-14] MEDS: NIFEdipine XL 30 MG TAB PO SCH (09:32)
[2019-08-14] MEDS: cloNIDine 0.1 MG TAB PO SCH (09:32)
[2019-08-14] MEDS: Metoprolol Tartrate 50 MG TAB PER TUBE SCH ×2 (09:32→20:31)
[2019-08-14] MEDS: Pantoprazole 40 MG VIAL IVP SCH (09:33)
[2019-08-14] MEDS: Clopidogrel Bisulfate 75 MG TAB PO SCH (09:33)
[2019-08-14] MEDS: Enoxaparin Sodium 40 MG/0.4 ML SYRINGE SC SCH (09:33)
[2019-08-14] MEDS: Furosemide 40 MG/4 ML VIAL SLOW IVP SCH (09:33)
[2019-08-14] MEDS: Insulin Glargine 45 UNITS in Pre-Filled Syringe 1 EACH SC SCH ×2 (09:34→22:11)
[2019-08-14] MEDS: hydrALAZINE 25 MG TAB PO SCH ×3 (09:46→20:30)
--- NOTE | 2019-08-14 10:06 | PRG ---
DATE OF SERVICE: 08/14/2019 SUBJECTIVE: The patient is doing well. No complaints. He has been off the BiPAP for quite some time. He is currently on nasal cannula. OBJECTIVE: VITAL SIGNS: Temperature 97.9, pulse 80, blood pressure 157/81, O2 saturation 96%. 24-hour intake 1757, output 2775. HEENT: Unremarkable. NECK: No adenopathy or JVD. CHEST: Clear anteriorly. CARDIAC: S1 and S2. Regular. ABDOMEN: Soft. EXTREMITIES: No edema. LABORATORY DATA: White blood cell count 11.9, hematocrit 38.8, platelet count 313. Sodium 140, potassium 3.1, BUN 33, creatinine 1.2, glucose 110. ASSESSMENT: 1. Status post respiratory failure from influenza and pneumonia. 2. Hypoxic respiratory failure. PLAN: 1. Transfer to medical. 2. Increase activity as tolerated. 3. Hopefully, home soon. Job ID: [id number]
[2019-08-14] MEDS: Losartan 25 MG TAB PO SCH (20:31)
[2019-08-14] MEDS: LUNESTA (ESZOPICLONE) 3 MG PO SCH (22:11)
[2019-08-15 05:56] LABS: Potassium 3.2 mmol/L (3.5-5.1)
[2019-08-15] MEDS: hydrALAZINE 20 MG/ML VIAL SLOW IVP PRN (06:49)
[2019-08-15] MEDS: NIFEdipine XL 30 MG TAB PO SCH (08:22)
[2019-08-15] MEDS: cloNIDine 0.1 MG TAB PO SCH (08:22)
[2019-08-15] MEDS: Aspirin 81 mg Enteric Coated Tablet PER TUBE SCH (08:22)
[2019-08-15] MEDS: Metoprolol Tartrate 50 MG TAB PER TUBE SCH ×2 (08:23→21:52)
[2019-08-15] MEDS: hydrALAZINE 25 MG TAB PO SCH ×3 (08:23→21:52)
[2019-08-15] MEDS: predniSONE 20 MG TAB PO SCH (08:23)
[2019-08-15] MEDS: HYDROcodone/Acetaminophen 10/325 mg Tablet PO PRN ×3 (08:23→15:47)
[2019-08-15] MEDS: Clopidogrel Bisulfate 75 MG TAB PO SCH (08:23)
[2019-08-15] MEDS: Enoxaparin Sodium 40 MG/0.4 ML SYRINGE SC SCH (08:25)
[2019-08-15] MEDS: Insulin Glargine 45 UNITS in Pre-Filled Syringe 1 EACH SC SCH (08:25)
[2019-08-15] MEDS: Furosemide 40 MG/4 ML VIAL SLOW IVP SCH (08:25)
[2019-08-15] MEDS ORDERED: Potassium Chloride 20 MEQ TAB PO SCH (08:45)
--- NOTE | 2019-08-15 10:13 | PRG ---
DATE OF SERVICE: 08/15/2019 SUBJECTIVE: The patient is doing well except for weakness. OBJECTIVE: VITAL SIGNS: On examination, temperature 97.9, pulse 91, respirations 22, O2 saturation is 94%, and blood pressure 184/81. HEENT: Unremarkable. NECK: No adenopathy or JVD. CHEST: Clear to auscultation. CARDIAC: S1 and S2 regular. ABDOMEN: Soft. EXTREMITIES: No edema. ASSESSMENT: 1. Post influenza with pneumonia. 2. Post respiratory failure, requiring mechanical ventilation. 3. Profound weakness. 4. Status post hypoxic respiratory failure. PLAN: Increase activity as tolerated. In my mind, he would be a good candidate for rehab. He will need to have his oxygen needs reassessed at the time of discharge. I will go ahead and stop his daily Lasix. Job ID: [id number]
[2019-08-15] MEDS: NIFEdipine XL 60 MG TAB PO SCH (12:17)
[2019-08-15] MEDS: Insulin Glargine 30 UNITS in Pre-Filled Syringe 1 EACH SC SCH ×2 (12:17→21:52)
--- NOTE | 2019-08-15 14:02 | PDOC.HOSPP ---
- Subjective Encounter Date: 08/15/19 Encounter Time: 14:00 Subjective: Mr. Hitchcock was seen today in follow-up of respiratory failure. He does not have any complaints. He was able to ambulate some, but still becomes quite winded. - Objective Vital Signs & Weight: Vital Signs (12 hours) Temp Pulse Resp BP BP Pulse Ox 08/15/19 13:03 77 28 H 94 L 08/15/19 12:17 77 08/15/19 11:28 98.0 F 77 24 H 162/76 H 94 L 08/15/19 08:00 94 L 08/15/19 07:59 97.9 F 91 22 H 184/81 H 94 L 08/15/19 06:49 83 192/101 H 08/15/19 03:15 98.0 F 74 18 175/83 H 94 L Weight Admit Weight 304 lb Weight 304 lb Most Recent Monitor Data Heart Rate from ECG 89 NIBP 167/76 NIBP BP-Mean 87 Respiration from ECG 24 SpO2 99 I&O: 08/14/19 08/15/19 08/16/19 06:59 06:59 06:59 Intake Total 1757 1380 800 Output Total 2775 1785 Balance -1018 -405 800 Result Diagrams: 08/14/19 02:19 08/15/19 05:14 Additional Labs: Accuchecks 08/15/19 08/15/19 08/15/19 04:45 04:00 03:44 POC Glucose 93 47 L* 50 L* 08/15/19 08/14/19 08/14/19 03:41 20:59 17:10 POC Glucose 56 L* 126 H 115 H Hospitalist ROS - Medication Medications: Active Medications Generic Name Dose Route Start Last Admin Trade Name Freq PRN Reason Stop Dose Admin Acetaminophen 650 mg 08/11/19 13:51 08/11/19 20:57 Tylenol Elixir PER TUBE 650 mg Q4H PRN Administration Fever > 101 Hydrocodone Bitart/Acetaminophen 1 tab 08/12/19 00:27 08/15/19 12:36 [place] 10/325 PO 1 tab Q4H PRN Administration Pain Albuterol/Ipratropium 3 ml 08/14/19 14:00 08/15/19 13:03 Duoneb NEB 3 ml Q4H PRN Administration SOB &/or Wheezing Aspirin 81 mg 08/12/19 09:00 08/15/19 08:22 Ecotrin PER TUBE 81 mg DAILY CONNOR Administration Clonidine 0.1 mg 08/12/19 09:00 08/15/19 08:22 Catapres PO 0.1 mg QAM CONNOR Administration Clopidogrel Bisulfate 75 mg 08/12/19 09:00 08/15/19 08:23 Plavix PO 75 mg QAM CONNOR Administration Dextrose/Water 25 gm 08/11/19 13:52 08/12/19 00:56 Dextrose 50% SLOW IVP 25 gm PRN PRN Administration Hypoglycemia Enoxaparin Sodium 40 mg 08/12/19 09:00 08/15/19 08:25 Lovenox SC 40 mg 0900 CONNOR Administration Hydralazine HCl 20 mg 08/11/19 13:53 08/15/19 06:49 Apresoline SLOW IVP 20 mg Q2H PRN Administration SPB > 180 Hydralazine HCl 50 mg 08/13/19 15:00 08/15/19 08:23 Apresoline PO 50 mg TID CONNOR Administration Insulin Glargine 30 units/ 0.3 mls @ 0 mls/hr 08/15/19 09:00 08/15/19 12:17 Miscellaneous Medication SC Not Given BID [facility] Insulin Human Lispro 0 units 08/11/19 13:52 08/13/19 20:09 Humalog SC 3 unit .AGGRESSIVE SLIDING PRN Administration Aggressive Correctional Scale Losartan Potassium 50 mg 08/11/19 21:00 08/14/19 20:31 Cozaar PO 50 mg HS CONNOR Administration Melatonin 6 mg 08/13/19 21:29 08/13/19 22:07 Melatonin PO 6 mg HSPRN PRN Administration Insomnia Metoprolol Tartrate 50 mg 08/11/19 21:00 08/15/19 08:23 Lopressor PER TUBE 50 mg BID [facility]NOR Administration Nifedipine 60 mg 08/15/19 09:00 08/15/19 12:17 Procardia Xl PO Not Given DAILY [facility] Pantoprazole Sodium 40 mg 08/15/19 09:00 08/15/19 08:22 Protonix PO 40 mg DAILY [facility] Administration Lunesta (Eszopiclone 1 each 08/14/19 21:00 08/14/19 22:11 ) 3 Mg PO 1 each HS CONNOR Administration Prednisone 40 mg 08/14/19 08:00 08/15/19 08:23 Prednisone PO 08/17/19 08:01 40 mg QAM[facility] Administration - Exam Eye: PERRL, anicteric sclera Heart: RRR, no murmur, no gallops, no rubs, normal peripheral pulses Respiratory: CTAB (just a slight wheeze), no rales, no ronchi, normal chest expansion, no tachypnea, normal percussion Gastrointestinal: soft, non-tender, non-distended, normal bowel sounds, no palpable masses, no hepatomegaly, no splenomegaly Extremities: no cyanosis Hosp A/P (1) Acute respiratory failure with hypoxia Code(s): J96.01 - ACUTE RESPIRATORY FAILURE WITH HYPOXIA Status: Acute (2) Influenza A Code(s): J10.1 - FLU DUE TO OTH IDENT INFLUENZA VIRUS W OTH RESP MANIFEST Status: Acute (3) CAD (coronary artery disease) Code(s): I25.10 - ATHSCL HEART DISEASE OF [place] CORONARY ARTERY W/O ANG PCTRS Status: Chronic (4) Diabetes type 2, controlled Code(s): E11.9 - TYPE 2 DIABETES MELLITUS WITHOUT COMPLICATIONS Status: Chronic (5) Hypertension Code(s): I10 - ESSENTIAL (PRIMARY) HYPERTENSION Status: Chronic (6) Hypokalemia Code(s): E87.6 - HYPOKALEMIA Status: Acute - Plan * Acute respiratory failure with hypoxemia due to Influenza A-he continues to improve * Continue to wean oxygen as tolerated * COPD- stable * Deconditioning- start PT/OT * DM-blood glucose is stable * Hypokalemia- continue to replace Potassium- slowing improving * HTN- elevated- will increase the dose of ProcardiaXL to 60mg * Will place a Rehab consult
[2019-08-15] MEDS: HumaLOG 300 UNITS/3 ML VIAL SC PRN (18:23)
[2019-08-15] MEDS: LUNESTA (ESZOPICLONE) 3 MG PO SCH (21:52)
[2019-08-15] MEDS: Losartan 25 MG TAB PO SCH (21:52)
[2019-08-16] MEDS: HYDROcodone/Acetaminophen 10/325 mg Tablet PO PRN ×5 (01:28→21:39)
[2019-08-16] MEDS ORDERED: Artificial Tears 18 DROP/0.9 ML EA EYE PRN (07:31)
[2019-08-16] MEDS ORDERED: Senokot S 8.6-50 MG TAB PO PRN (07:31)
[2019-08-16] MEDS ORDERED: Metoclopramide HCl 10 MG/2 ML VIAL IVP PRN (07:31)
[2019-08-16] MEDS ORDERED: Diabetic Tussin 200 MG/10 ML UDCUP PO PRN (07:31)
[2019-08-16] MEDS ORDERED: Loperamide HCl 2 MG CAP PO PRN (07:31)
[2019-08-16] MEDS ORDERED: Cepastat Lozenges 1 LOZ PO PRN (07:31)
[2019-08-16] MEDS ORDERED: Benzonatate 100 MG CAP PO PRN (07:31)
[2019-08-16] MEDS ORDERED: Loratadine 10 MG TAB PO PRN (07:31)
[2019-08-16] MEDS ORDERED: Sodium Chloride 0.65% Nasal 44 ML BOT EA NARE PRN (07:31)
[2019-08-16] MEDS ORDERED: Calcium Carbonate 500 MG ChewTAB PO PRN (07:31)
[2019-08-16] MEDS ORDERED: Bisacodyl 10 MG SUPP PR PRN (07:31)
[2019-08-16] MEDS: predniSONE 20 MG TAB PO SCH (08:00)
[2019-08-16] MEDS: Metoprolol Tartrate 50 MG TAB PER TUBE SCH ×2 (08:01→21:38)
[2019-08-16] MEDS: Aspirin 81 mg Enteric Coated Tablet PO SCH (08:01)
[2019-08-16] MEDS: NIFEdipine XL 60 MG TAB PO SCH (08:01)
[2019-08-16] MEDS: hydrALAZINE 25 MG TAB PO SCH ×3 (08:01→21:38)
[2019-08-16] MEDS: Enoxaparin Sodium 40 MG/0.4 ML SYRINGE SC SCH (08:01)
[2019-08-16] MEDS: cloNIDine 0.1 MG TAB PO SCH (08:01)
[2019-08-16] MEDS: Clopidogrel Bisulfate 75 MG TAB PO SCH (08:01)
[2019-08-16] MEDS: Insulin Glargine 30 UNITS in Pre-Filled Syringe 1 EACH SC SCH ×2 (08:02→21:39)
--- NOTE | 2019-08-16 10:24 | PDOC.HOSPP ---
- Subjective Encounter Date: 08/16/19 Encounter Time: 08:30 Subjective: Patient seen and examined. No new complaints. No overnight events - Objective Vital Signs & Weight: Vital Signs (12 hours) Temp Pulse Resp BP BP Pulse Ox 08/16/19 08:01 73 183/88 H 08/16/19 08:00 94 L 08/16/19 07:59 97.9 F 73 18 183/88 H 94 L 08/16/19 06:19 92 L 08/16/19 05:54 81 20 92 L 08/16/19 04:00 98.1 F 67 18 172/90 H 94 L 08/16/19 00:00 98.5 F 66 20 157/72 H 93 L Weight Admit Weight 304 lb Weight 304 lb 0.279 oz Most Recent Monitor Data Heart Rate from ECG 89 NIBP 167/76 NIBP BP-Mean 87 Respiration from ECG 24 SpO2 99 I&O: 08/15/19 08/16/19 08/17/19 06:59 06:59 06:59 Intake Total 1380 800 800 Output Total 1785 Balance -405 800 800 Result Diagrams: 08/14/19 02:19 08/15/19 05:14 Additional Labs: Accuchecks 08/16/19 08/16/19 08/15/19 06:16 04:29 19:19 POC Glucose 124 H 50 L* 238 H 08/15/19 08/15/19 17:19 11:35 POC Glucose 287 H 174 H Hospitalist ROS - Review of Systems ENT: denies: ear pain, ear discharge, nose pain, nose discharge, nose congestion , mouth pain, mouth swelling, throat pain, throat swelling, other Respiratory: denies: cough, dry, shortness of breath, hemoptysis, SOB with excertion, pleuritic pain, sputum, wheezing, other Cardiovascular: denies: chest pain, palpitations, orthopnea, paroxysmal noc. dyspnea, edema, light headedness, other Gastrointestinal: denies: nausea, vomiting, abdominal pain, diarrhea, constipation, melena, hematochezia, other Genitourinary: denies: dysuria, frequency, incontinence, hematuria, retention, other Musculoskeletal: denies: neck pain, shoulder pain, arm pain, back pain, hand pain, leg pain, foot pain, other - Medication Medications: Active Medications Generic Name Dose Route Start Last Admin Trade Name Freq PRN Reason Stop Dose Admin Acetaminophen 650 mg 08/11/19 13:51 08/11/19 20:57 Tylenol Elixir PER TUBE 650 mg Q4H PRN Administration Fever > 101 Hydrocodone Bitart/Acetaminophen 1 tab 08/12/19 00:27 08/16/19 08:12 [place] 10/325 PO 1 tab Q4H PRN Administration Pain Albuterol/Ipratropium 3 ml 08/14/19 14:00 08/16/19 05:54 Duoneb NEB 3 ml Q4H PRN Administration SOB &/or Wheezing Aspirin 81 mg 08/16/19 09:00 08/16/19 08:01 Ecotrin PO 81 mg DAILY CONNOR Administration Clonidine 0.1 mg 08/12/19 09:00 08/16/19 08:01 Catapres PO 0.1 mg QAM CONNOR Administration Clopidogrel Bisulfate 75 mg 08/12/19 09:00 08/16/19 08:01 Plavix PO 75 mg QAM CONNOR Administration Dextrose/Water 25 gm 08/11/19 13:52 08/12/19 00:56 Dextrose 50% SLOW IVP 25 gm PRN PRN Administration Hypoglycemia Enoxaparin Sodium 40 mg 08/12/19 09:00 08/16/19 08:01 Lovenox SC 40 mg 0900 CONNOR Administration Hydralazine HCl 20 mg 08/11/19 13:53 08/15/19 06:49 Apresoline SLOW IVP 20 mg Q2H PRN Administration SPB > 180 Hydralazine HCl 50 mg 08/13/19 15:00 08/16/19 08:01 Apresoline PO 50 mg TID CONNOR Administration Insulin Glargine 30 units/ 0.3 mls @ 0 mls/hr 08/15/19 09:00 08/16/19 08:02 Miscellaneous Medication SC 0.3 mls BID CONNOR Administration Insulin Human Lispro 0 units 08/11/19 13:52 08/15/19 18:23 Humalog SC 9 unit .AGGRESSIVE SLIDING PRN Administration Aggressive Correctional Scale Losartan Potassium 50 mg 08/11/19 21:00 08/15/19 21:52 Cozaar PO 50 mg HS CONNOR Administration Melatonin 6 mg 08/13/19 21:29 08/13/19 22:07 Melatonin PO 6 mg HSPRN PRN Administration Insomnia Metoprolol Tartrate 50 mg 08/11/19 21:00 08/16/19 08:01 Lopressor PER TUBE 50 mg BID CONNOR Administration Nifedipine 60 mg 08/15/19 09:00 08/16/19 08:01 Procardia Xl PO 60 mg DAILY CONNOR Administration Pantoprazole Sodium 40 mg 08/15/19 09:00 08/16/19 08:01 Protonix PO 40 mg DAILY CONNOR Administration Lunesta (Eszopiclone 1 each 08/14/19 21:00 08/15/19 21:52 ) 3 Mg PO 1 each HS CONNOR Administration Prednisone 40 mg 08/14/19 08:00 08/16/19 08:00 Prednisone PO 08/17/19 08:01 40 mg QAM-WM CONNOR Administration - Exam General Appearance: NAD, awake alert Eye: PERRL, anicteric sclera ENT: normocephalic atraumatic, no oropharyngeal lesions Neck: supple, symmetric, no JVD Heart: RRR, no murmur, no gallops, no rubs Respiratory: CTAB, no wheezes, no rales Gastrointestinal: soft, non-tender, non-distended, normal bowel sounds Extremities: no cyanosis, no clubbing Skin: normal turgor, no lesions Neurological: no focal deficits Musculoskeletal: normal tone, normal strength Psychiatric: normal affect, normal behavior Hosp A/P (1) Acute respiratory failure with hypoxia Code(s): J96.01 - ACUTE RESPIRATORY FAILURE WITH HYPOXIA Status: Acute (2) Hypokalemia Code(s): E87.6 - HYPOKALEMIA Status: Acute (3) Influenza A Code(s): J10.1 - FLU DUE TO OTH IDENT INFLUENZA VIRUS W OTH RESP MANIFEST Status: Acute (4) CAD (coronary artery disease) Code(s): I25.10 - ATHSCL HEART DISEASE OF [place] CORONARY ARTERY W/O ANG PCTRS Status: Chronic (5) Chronic pancreatitis Code(s): K86.1 - OTHER CHRONIC PANCREATITIS Status: Chronic (6) Diabetes type 2, controlled Code(s): E11.9 - TYPE 2 DIABETES MELLITUS WITHOUT COMPLICATIONS Status: Chronic (7) Dyslipidemia Code(s): E78.5 - HYPERLIPIDEMIA, UNSPECIFIED Status: Chronic (8) Hypertension Code(s): I10 - ESSENTIAL (PRIMARY) HYPERTENSION Status: Chronic (9) Obesity (BMI 30-39.9) Code(s): E66.9 - OBESITY, UNSPECIFIED Status: Chronic - Plan old records reviewed/req, PT/OT, social media manager, respiratory therapy overall has improvement, will need home oxygen, possible placement to rehab if no improvement, medication reviewed and continue to provide symptomatic treatment and supportive care
[2019-08-16] MEDS: HumaLOG 300 UNITS/3 ML VIAL SC PRN ×2 (11:36→15:48)
[2019-08-16] MEDS ORDERED: Potassium Chloride 20 MEQ TAB PO SCH (18:15)
[2019-08-16] MEDS ORDERED: Furosemide 40 MG/4 ML VIAL SLOW IVP SCH (18:15)
--- NOTE | 2019-08-16 18:32 | PRG ---
DATE OF SERVICE: 08/16/2019 SERVICE: Pulmonary Medicine. INTERVAL HISTORY: The patient is doing fine from respiratory standpoint. He is breathing comfortably. There has been no interval change to his condition otherwise. He still feels a little bit weak. That being said, he is able to get around with the assistance of a walker. Otherwise, there has been no interval change. PHYSICAL EXAMINATION: VITAL SIGNS: Afebrile, pulse 73, blood pressure 173/90, respirations 20, saturation 94% on 2 L nasal cannula. HEENT: Normocephalic and atraumatic. Sclerae are white. Conjunctivae are pink. Oral mucosa is moist without lesions. LUNGS: Decreased air entry with a prolonged expiratory phase. I do not hear any crackles or wheezing today. HEART: Normal rate. Regular. ABDOMEN: Soft, nontender, and nondistended. Bowel sounds are positive. MUSCULOSKELETAL: No cyanosis or clubbing. There is no pitting in the bilateral lower extremities. NEUROLOGIC: Grossly nonfocal. LABORATORY DATA: Blood sugars ranged from 50 to 200. Blood cultures x2, urine culture, influenza A and B, respiratory culture are all unremarkable to-date. ASSESSMENT: 1. Acute hypoxic respiratory failure. 2. Community-acquired pneumonia secondary to influenza. DISCUSSION AND PLAN: The patient is doing fantastic from respiratory standpoint. We will continue to diurese him down to euvolemia. At this point, once he is strong enough, has oxygen set up at home if necessary, and a walker, he can be discharged from the hospital. Pulmonary will follow intermittently during this hospital stay. If he gets into trouble, please call me through the weekend. Job ID: [id number]
[2019-08-16] MEDS: Losartan 25 MG TAB PO SCH (21:44)
[2019-08-16] MEDS: LUNESTA (ESZOPICLONE) 3 MG PO SCH (23:38)
[2019-08-17 06:25] LABS: Anion Gap 12 mmol/L (10-20); BUN (Urea Nitrogen) 25 mg/dL (8.4-25.7); Calc. Creatinine Clearance 133 mL/min (70-130); Calcium 8.6 mg/dL (7.8-10.44); Carbon Dioxide 34 mmol/L (23-31); Chloride 101 mmol/L (98-107); Estimated GFR-MDRD 65; Glucose 106 mg/dL (80-115); Potassium 3.3 mmol/L (3.5-5.1); Sodium 144 mmol/L (136-145)
[2019-08-17] MEDS: HYDROcodone/Acetaminophen 10/325 mg Tablet PO PRN ×2 (06:34→11:17)
[2019-08-17 06:36] VITALS: BMI 40.5
[2019-08-17 07:26] VITALS: BP 168/89; TEMP 98.1
[2019-08-17] MEDS ORDERED: Potassium Chloride 20 MEQ TAB PO SCH (08:00)
[2019-08-17] MEDS: Metoprolol Tartrate 50 MG TAB PER TUBE SCH (08:44)
[2019-08-17] MEDS: hydrALAZINE 25 MG TAB PO SCH ×2 (08:44→15:29)
[2019-08-17] MEDS: predniSONE 20 MG TAB PO SCH (08:44)
[2019-08-17] MEDS: cloNIDine 0.1 MG TAB PO SCH (08:44)
[2019-08-17] MEDS: NIFEdipine XL 60 MG TAB PO SCH (08:44)
[2019-08-17] MEDS: Clopidogrel Bisulfate 75 MG TAB PO SCH (08:45)
[2019-08-17] MEDS: Aspirin 81 mg Enteric Coated Tablet PO SCH (08:45)
[2019-08-17] MEDS: Enoxaparin Sodium 40 MG/0.4 ML SYRINGE SC SCH (08:46)
[2019-08-17] MEDS: Insulin Glargine 30 UNITS in Pre-Filled Syringe 1 EACH SC SCH (08:47)
[2019-08-17] MEDS ORDERED: Furosemide 40 MG/4 ML VIAL SLOW IVP SCH (09:00)
--- NOTE | 2019-08-17 11:45 | PDOC.HOSPP ---
- Subjective Encounter Date: 08/17/19 Encounter Time: 09:45 Subjective: Patient seen and examined. No new complaints. No overnight events - Objective Vital Signs & Weight: Vital Signs (12 hours) Temp Pulse Resp BP Pulse Ox 08/17/19 08:00 95 08/17/19 07:25 98.1 F 69 20 168/89 H 95 08/17/19 07:00 94 L 08/17/19 03:52 98 F 69 18 106/81 94 L 08/16/19 23:47 97.9 F 69 16 159/81 H 94 L Weight Admit Weight 304 lb Weight 299 lb 6.4 oz Most Recent Monitor Data Heart Rate from ECG 89 NIBP 167/76 NIBP BP-Mean 87 Respiration from ECG 24 SpO2 99 I&O: 08/16/19 08/17/19 08/18/19 06:59 06:59 06:59 Intake Total 800 1800 500 Balance 800 1800 500 Result Diagrams: 08/14/19 02:19 08/17/19 05:25 Additional Labs: Accuchecks 08/17/19 08/17/19 08/16/19 11:01 04:00 19:10 POC Glucose 130 H 107 186 H 08/16/19 15:44 POC Glucose 200 H Hospitalist ROS - Review of Systems ENT: denies: ear pain, ear discharge, nose pain, nose discharge, nose congestion , mouth pain, mouth swelling, throat pain, throat swelling, other Respiratory: denies: cough, dry, shortness of breath, hemoptysis, SOB with excertion, pleuritic pain, sputum, wheezing, other Cardiovascular: denies: chest pain, palpitations, orthopnea, paroxysmal noc. dyspnea, edema, light headedness, other Gastrointestinal: denies: nausea, vomiting, abdominal pain, diarrhea, constipation, melena, hematochezia, other Genitourinary: denies: dysuria, frequency, incontinence, hematuria, retention, other Musculoskeletal: denies: neck pain, shoulder pain, arm pain, back pain, hand pain, leg pain, foot pain, other - Medication Medications: Active Medications Generic Name Dose Route Start Last Admin Trade Name Freq PRN Reason Stop Dose Admin Acetaminophen 650 mg 08/11/19 13:51 08/11/19 20:57 Tylenol Elixir PER TUBE 650 mg Q4H PRN Administration Fever > 101 Hydrocodone Bitart/Acetaminophen 1 tab 08/12/19 00:27 08/17/19 11:17 [place] 10/325 PO 1 tab Q4H PRN Administration Pain Albuterol/Ipratropium 3 ml 08/14/19 14:00 08/16/19 05:54 Duoneb NEB 3 ml Q4H PRN Administration SOB &/or Wheezing Aspirin 81 mg 08/16/19 09:00 08/17/19 08:45 Ecotrin PO 81 mg DAILY CONNOR Administration Clonidine 0.1 mg 08/12/19 09:00 08/17/19 08:44 Catapres PO 0.1 mg QAM CONNOR Administration Clopidogrel Bisulfate 75 mg 08/12/19 09:00 08/17/19 08:45 Plavix PO 75 mg QAM CONNOR Administration Dextrose/Water 25 gm 08/11/19 13:52 08/12/19 00:56 Dextrose 50% SLOW IVP 25 gm PRN PRN Administration Hypoglycemia Enoxaparin Sodium 40 mg 08/12/19 09:00 08/17/19 08:46 Lovenox SC 40 mg 0900 CONNOR Administration Furosemide 40 mg 08/17/19 09:00 08/17/19 08:47 Lasix SLOW IVP 08/18/19 09:01 40 mg DAILY CONNOR Administration Hydralazine HCl 20 mg 08/11/19 13:53 08/15/19 06:49 Apresoline SLOW IVP 20 mg Q2H PRN Administration SPB > 180 Hydralazine HCl 50 mg 08/13/19 15:00 08/17/19 08:44 Apresoline PO 50 mg TID CONNOR Administration Insulin Glargine 30 units/ 0.3 mls @ 0 mls/hr 08/15/19 09:00 08/17/19 08:47 Miscellaneous Medication SC 0.3 mls BID CONNOR Administration Insulin Human Lispro 0 units 08/11/19 13:52 08/16/19 15:48 Humalog SC 3 unit .AGGRESSIVE SLIDING PRN Administration Aggressive [employer]al Scale Losartan Potassium 50 mg 08/11/19 21:00 08/16/19 21:44 Cozaar PO 50 mg HS CONNOR Administration Melatonin 6 mg 08/13/19 21:29 08/13/19 22:07 Melatonin PO 6 mg HSPRN PRN Administration Insomnia Metoprolol Tartrate 50 mg 08/11/19 21:00 08/17/19 08:44 Lopressor PER TUBE 50 mg BID CONNOR Administration Nifedipine 60 mg 08/15/19 09:00 08/17/19 08:44 Procardia Xl PO 60 mg DAILY CONNOR Administration Pantoprazole Sodium 40 mg 08/15/19 09:00 08/17/19 08:44 Protonix PO 40 mg DAILY CONNOR Administration Lunesta (Eszopiclone 1 each 08/14/19 21:00 08/16/19 23:38 ) 3 Mg PO 1 each HS CONNOR Administration Potassium Chloride 20 meq 08/17/19 08:00 08/17/19 08:45 [place] PO 20 meq QAM-WM CONNOR Administration - Exam General Appearance: NAD, awake alert Eye: PERRL, anicteric sclera ENT: normocephalic atraumatic, no oropharyngeal lesions Neck: supple, symmetric, no JVD Heart: RRR, no murmur, no gallops, no rubs Respiratory: CTAB, no wheezes, no rales, no ronchi Gastrointestinal: soft, non-tender, non-distended, normal bowel sounds Extremities: no cyanosis, no clubbing, no edema Skin: normal turgor, no lesions Neurological: no focal deficits Musculoskeletal: normal tone, normal strength Hosp A/P (1) Acute respiratory failure with hypoxia Code(s): J96.01 - ACUTE RESPIRATORY FAILURE WITH HYPOXIA Status: Acute (2) Hypokalemia Code(s): E87.6 - HYPOKALEMIA Status: Acute (3) Influenza A Code(s): J10.1 - FLU DUE TO OTH IDENT INFLUENZA VIRUS W OTH RESP MANIFEST Status: Acute (4) CAD (coronary artery disease) Code(s): I25.10 - ATHSCL HEART DISEASE OF [place] CORONARY ARTERY W/O ANG PCTRS Status: Chronic (5) Chronic pancreatitis Code(s): K86.1 - OTHER CHRONIC PANCREATITIS Status: Chronic (6) Diabetes type 2, controlled Code(s): E11.9 - TYPE 2 DIABETES MELLITUS WITHOUT COMPLICATIONS Status: Chronic (7) Dyslipidemia Code(s): E78.5 - HYPERLIPIDEMIA, UNSPECIFIED Status: Chronic (8) Hypertension Code(s): I10 - ESSENTIAL (PRIMARY) HYPERTENSION Status: Chronic (9) Obesity (BMI 30-39.9) Code(s): E66.9 - OBESITY, UNSPECIFIED Status: Chronic - Plan old records reviewed/req overall has improvement, will need home oxygen, possible placement to rehab if no improvement, medication reviewed and continue to provide symptomatic treatment and supportive care 08/17/19, pt does not want to go to rehab and insisting on going home today, will need home oxygen, he is at risk for recurrent admission, possible discharge pending arrangement for home oxygen
--- NOTE | 2019-08-17 14:15 | PRG ---
DATE OF SERVICE: 08/17/2019 This patient was admitted 12 days ago with acute respiratory failure with hypoxia, and he was found with influenza A. He has undiagnosed history of COPD and that problem is ongoing despite aggressive treatment for influenza A and respiratory failure. He was intubated initially and extubated. Influenza tree is completely treated and resolved. His acute respiratory failure is resolved, but now he still has hypoxia, and whenever we assessed for home oxygen, his oxygen saturation drops below 88% on room air, and that is why he is qualifying for home oxygen therapy, and with help of major case detective, we are arranging home oxygen for him. Job ID: [id number]
--- NOTE | 2019-08-17 14:32 | DIS ---
DATE OF ADMISSION: 08/04/2019 DATE OF DISCHARGE: 08/17/2019 PRIMARY CARE PHYSICIAN: DISCHARGE DISPOSITION: Home with home health. PRIMARY DISCHARGE DIAGNOSES: 1. Acute respiratory failure with hypoxia. 2. Hypokalemia. 3. Influenza A. 4. Chronic respiratory failure with hypoxia. 5. Chronic obstructive pulmonary disease. SECONDARY DISCHARGE DIAGNOSES: Morbid obesity, chronic low back pain, chronic pancreatitis, chronic diastolic heart failure, diabetes type 2, hypertension. PRIMARY PROCEDURE/OPERATION: Endotracheal intubation and mechanical ventilatory support, radiological investigation, chest x-ray. SIGNIFICANT LABORATORY DATA: WBC 11.9, hemoglobin 12.9, platelet 313. INR 1.2. Sodium 144, creatinine 1.14. DISCHARGE MEDICATION: 1. Aspirin 81 mg daily. 2. Plavix 75 mg daily. 3. Lunesta 3 mg p.o. at bedtime. 4. Lasix 40 mg p.o. b.i.d. 5. Hydralazine 25 mg t.i.d. 6. Vascepa 2 g p.o. b.i.d. 7. NovoLog insulin 10 units t.i.d. 8. Tresiba 76 units subcu a.m. 9. Creon DR one capsule t.i.d. with meals. 10. Losartan 50 mg at bedtime. 11. Metformin 500 mg p.o. b.i.d. 12. Metoprolol 50 mg b.i.d. 13. Procardia XL 30 mg daily. 14. Benicar 40 mg daily. 15. Potassium chloride 10 mEq p.o. b.i.d. 16. Lyrica 150 mg t.i.d. 17. Dulera 2 puff inhalation b.i.d. 18. Prednisone 40 mg daily for 3 days and 30 mg p.o. daily for 3 days, then 20 mg daily for 3 days and then 10 mg daily for 3 days. 19. Tylenol No. 4 one tablet q.6 hourly p.r.n. 20. Cholestyramine 4 g p.o. b.i.d. p.r.n. 21. Ventolin HFA 2 puffs q.6 hourly p.r.n. CONTRAINDICATION: None. CODE STATUS: Full code. INPATIENT COMPUTER ENGINEER: Pulmonary group was following while in hospital. TEST RESULTS PENDING ON DISCHARGE: None. ALLERGIES: PENICILLIN. DISCHARGE PLAN: Posthospital the patient will follow up with primary care physician in 1 week. HOSPITAL COURSE: A 63-year-old male with above-mentioned medical problem, who was admitted in the hospital on August 04, 2019. Please see admitting physician H and P for more details. The patient was having respiratory failure from COPD exacerbation and he required endotracheal intubation and mechanical ventilatory support. He was found with influenza A, which was treated while in hospital. After few days of optimum therapy, patient was able to be extubated and subsequently, the patient was transferred to medical floor. The patient was physically weak and that is why initially we were planning to transfer him to rehab, but the patient's condition improved. He was fully treated with influenza A and despite that he has hypoxia and that is why he was qualified for home oxygen. Please see my progress note from today for more detail. The patient insisted on going home and that is why with help of insurance case manager, we are arranging home health as well as home oxygen. The patient will continue all his previous medication as well as new medication prescription sent to his pharmacy. The patient is overall medically stable for discharge, though patient is high risk for recurrent admission given his end stage COPD and other comorbidities. Job ID: [id number]
--- NOTE | 2019-08-18 20:15 | PQF ---
GIDEON STEPHEN SALIM NOORJIBHAI MD [id number] CLINICAL DOCUMENTATION CLARIFICATION FORM: POST DISCHARGE Addendum to original discharge summary date: ____ Late entry note date: __ DATE: 08/18/19 ATTN: Lisa Ivan Please exercise your independent, professional judgment in responding to the clarification form. Clinical indicators are provided on the bottom of this form for your review Please check appropriate box(s) to clarify if the following diagnosis has been ruled in or ruled out: Sepsis [ x ] Ruled in diagnosis [ ] Continue to treat [x ] Resolved [ ] Ruled out diagnosis [ ] Cannot rule out diagnosis [ ] Other diagnosis [ ] Unable to determine In addition, please specify: Present on Admission (POA): [ x ] Yes [ ] No [ ] Unable to determine For continuity of documentation, please document condition throughout progress notes and discharge summary. Thank You. CLINICAL INDICATORS - SIGNS / SYMPTOMS / LABS Laboratory Chemistry 08/04 Lactic Acid: 2.3 Laboratory Hematology 08/04 WBC 16.5 ED notes p1 08/04 Sepsis Alert was activated due to patient meeting the activation requirements Hospitalist H&P p1 08/04 Dr Oropeza Pt had been feeling ill for 2 days including SOB, AMS and fever RISK FACTORS Hospitalist H&P p3 08/04 Acute Respiratory Failure Hospitalist H&P p3 08/04 Influenza A Hospitalist H&P p3 08/04 Septic Shock secondary to respiratory infection Hospitalist H&P p3 08/04 UDAY Hospitalist H&P p3 08/04 Hypercapnic Encephalopathy TREATMENTS Resporatpry Panel 08/04 Intubated and hooked on Mechanical Ventilator OCT 22 IV Rocephin OCT 22 IV Levophed OCT 22 IV Normal Saline 1L OCT 22 Tamiflu (This form is maintained as a part of the permanent medical record) 2014 [employer] All Rights Reserved [email or web address] Backlinks [not provided] [email or web address]
== END 2019-08-17 15:50 | disposition home health service (06) | DRG 870 ==
LOC: ERS 13:02 → CCU 16:12 → UNDODISIN 08-11 13:16 → T4-A 08-14 20:07
PROVIDERS: ADMIT Hospitalist; ATTEND Hospitalist
PROC: 5A1955Z Respiratory Ventilation, Greater than 96 Consecutive Hours (ICD-10-PCS; principal; 2019-08-04)
PROC: 0BH17EZ Insertion of Endotracheal Airway into Trachea, Via Natural or Artificial Opening (ICD-10-PCS; 2019-08-04)
PROC: 06HY33Z Insertion of Infusion Device into Lower Vein, Percutaneous Approach (ICD-10-PCS; 2019-08-04)
PROC: 3E043XZ Introduction of Vasopressor into Central Vein, Percutaneous Approach (ICD-10-PCS; 2019-08-04)
PROC: 5A09457 Assistance with Respiratory Ventilation, 24-96 Consecutive Hours, Continuous Positive Airway Pressure (ICD-10-PCS; 2019-08-11)
DX: A41.9 Sepsis, unspecified organism (principal); J10.00 Influenza due to other identified influenza virus with unspecified type of pneumonia; J96.21 Acute and chronic respiratory failure with hypoxia; G92 Toxic encephalopathy; I21.A1 Myocardial infarction type 2; J96.22 Acute and chronic respiratory failure with hypercapnia; R65.21 Severe sepsis with septic shock; Z68.41 Body mass index [BMI] 40.0-44.9, adult; K86.1 Other chronic pancreatitis; I50.32 Chronic diastolic (congestive) heart failure; J44.1 Chronic obstructive pulmonary disease with (acute) exacerbation; N17.9 Acute kidney failure, unspecified; E87.2 Acidosis; E87.0 Hyperosmolality and hypernatremia; E87.4 Mixed disorder of acid-base balance; J44.0 Chronic obstructive pulmonary disease with (acute) lower respiratory infection; E66.01 Morbid (severe) obesity due to excess calories; G89.29 Other chronic pain; M54.5 Low back pain; I11.0 Hypertensive heart disease with heart failure; I25.10 Atherosclerotic heart disease of native coronary artery without angina pectoris; E78.5 Hyperlipidemia, unspecified; F17.200 Nicotine dependence, unspecified, uncomplicated; E11.40 Type 2 diabetes mellitus with diabetic neuropathy, unspecified; E87.6 Hypokalemia; E83.42 Hypomagnesemia; Z95.5 Presence of coronary angioplasty implant and graft; Z79.899 Other long term (current) drug therapy; Z79.4 Long term (current) use of insulin; Z79.82 Long term (current) use of aspirin; Z79.02 Long term (current) use of antithrombotics/antiplatelets; Z88.0 Allergy status to penicillin; Z86.74 Personal history of sudden cardiac arrest
CPT/HCPCS: 31500; 36415; 36416; 36556; 51702; 71045; 80048; 80053; 80202; 81003; 81015; 82550; 82553; 82805; 83605; 83735; 84100; 84132; 84145; 84484; 85025; 85610; 85730; 87040; 87070; 87086; 87205; 87804; 89220; 93005; 93010; 93970; 94002; 94003; 94640; 94660; 94760; 96365; 96366; 96368; C9113; J0360; J0696; J1650; J1815; J1940; J1956; J2060; J2704; J2920; J3010; J3370; J3411; J3475; J3480; J3490; J7050; J7512; J7620; S0028

== ENCOUNTER 2021-07-02 02:29 | Observation (INO) | payer MEDICARE ==
[2021-07-02 03:40] VITALS: BMI 43.1
[2021-07-02] MEDS ORDERED: Ondansetron PF 4 MG/2 ML Vial IVP SCH (04:00)
[2021-07-02] MEDS ORDERED: Nitroglycerin 0.4 MG TAB (25 Tab Bottle) SL PRN (04:52)
[2021-07-02] MEDS ORDERED: Ondansetron PF 4 MG/2 ML Vial IVP PRN (04:52)
[2021-07-02] MEDS ORDERED: Acetaminophen 325 MG TAB PO PRN (04:52)
[2021-07-02] MEDS ORDERED: HumaLOG 300 UNITS/3 ML VIAL SC PRN (05:03)
[2021-07-02] MEDS ORDERED: Dextrose 50% Abboject 50 ML SYRINGE SLOW IVP PRN (05:03)
[2021-07-02] MEDS ORDERED: Morphine 4 MG/ML VIAL SLOW IVP PRN (05:03)
[2021-07-02] MEDS ORDERED: Dextrose 5% in Water 1,000 ML IV PRN (05:03)
[2021-07-02] MEDS: methylPREDNISolone Sod Succ 40 MG VIAL IVP SCH ×2 (05:25→11:34)
[2021-07-02] MEDS ORDERED: Metoclopramide HCl 10 MG/2 ML VIAL IVP PRN (05:27)
[2021-07-02 07:20] LABS: #Eosinphils 0.1 thou/uL (0.0-0.7); #Monocytes 0.4 thou/uL (0.11-0.59); #Neutrophils 9.3 thou/uL (1.40-6.50); %Basophils 0.1 % (0.0-1.0); %Eosinophils 0.5 % (0.0-10.0); %Lymphocytes 9.3 % (21.0-51.0); %Monocytes 3.3 % (0.0-10.0); %Neutrophils 86.9 % (42.0-75.0); Hemoglobin 11.7 g/dL (14.0-18.0); Mean Corpuscular HGB CONC 32.5 g/dL (32.0-36.0); Mean Corpuscular Hemoglobin 28.5 pg (27.0-31.0); Mean Corpuscular Volume 87.7 fL (78.0-98.0); Mean Platelet Volume 6.6 fL (7.4-10.4); Platelet Count 385 thou/uL (130-400); RBC Distribution Width 14.9 % (11.5-14.5); White Blood Cell (WBC) Count 10.7 thou/uL (4.8-10.8)
[2021-07-02 07:33] LABS: Anion Gap 14 mmol/L (10-20); BUN (Urea Nitrogen) 21 mg/dL (8.4-25.7); Calc. Creatinine Clearance 104 mL/min (70-130); Calcium 8.9 mg/dL (7.8-10.44); Carbon Dioxide 27 mmol/L (23-31); Chloride 102 mmol/L (98-107); Glucose 168 mg/dL (80-115); Sodium 139 mmol/L (136-145)
[2021-07-02] MEDS ORDERED: Clopidogrel Bisulfate 75 MG TAB PO SCH (09:00)
[2021-07-02] MEDS ORDERED: FLU VACC QS2021-22(6MOS UP)/PF 60 MCG/0.5 ML SYRINGE IM ONE (09:00)
[2021-07-02] MEDS ORDERED: Montelukast Sodium 10 mg Tablet PO SCH (11:00)
[2021-07-02 12:14] VITALS: BP 153/85; TEMP 99.3
[2021-07-03] MEDS ORDERED: Atorvastatin Calcium 20 MG TAB PO SCH (09:00)
[2021-07-03] MEDS ORDERED: Montelukast Sodium 10 mg Tablet PO SCH (09:00)
== END 2021-07-02 14:50 | disposition home or self-care (01) ==
LOC: 2NO 03:14 → INTOOBSV 03:14
PROVIDERS: ADMIT Internal Medicine; ATTEND Internal Medicine
DX: R50.9 Fever, unspecified (principal); I13.0 Hypertensive heart and chronic kidney disease with heart failure and stage 1 through stage 4 chronic kidney disease, or unspecified chronic kidney disease; E11.22 Type 2 diabetes mellitus with diabetic chronic kidney disease; N18.9 Chronic kidney disease, unspecified; I50.20 Unspecified systolic (congestive) heart failure; I25.10 Atherosclerotic heart disease of native coronary artery without angina pectoris; I25.2 Old myocardial infarction; R00.0 Tachycardia, unspecified; R07.89 Other chest pain; J44.1 Chronic obstructive pulmonary disease with (acute) exacerbation; Z20.822 Contact with and (suspected) exposure to COVID-19; Z79.82 Long term (current) use of aspirin; Z79.02 Long term (current) use of antithrombotics/antiplatelets; Z79.4 Long term (current) use of insulin; Z79.84 Long term (current) use of oral hypoglycemic drugs; Z79.899 Other long term (current) drug therapy; Z88.0 Allergy status to penicillin; Z95.5 Presence of coronary angioplasty implant and graft; Z90.49 Acquired absence of other specified parts of digestive tract; Z87.891 Personal history of nicotine dependence
CPT/HCPCS: 71275; 80048; 82962; 85025; 93306; 96374; 96375; 96376; G0378; 36415; 36416; J2405; J2765; J2920

== ENCOUNTER 2021-08-31 15:58 | Inpatient (IN) | payer MEDICARE ==
[2021-08-31 18:00] LABS: #Eosinphils 0.4 thou/uL (0.0-0.7); #Lymphocytes 1.4 thou/uL (1.20-3.40); #Monocytes 0.5 thou/uL (0.11-0.59); #Neutrophils 5.5 thou/uL (1.40-6.50); %Basophils 0.6 % (0.0-1.0); %Eosinophils 5.4 % (0.0-10.0); %Lymphocytes 17.7 % (21.0-51.0); %Neutrophils 70.3 % (42.0-75.0); Hemoglobin 11.1 g/dL (14.0-18.0); Mean Corpuscular HGB CONC 31.3 g/dL (32.0-36.0); Mean Corpuscular Hemoglobin 28.3 pg (27.0-31.0); Mean Corpuscular Volume 90.3 fL (78.0-98.0); Mean Platelet Volume 6.8 fL (7.4-10.4); Platelet Count 343 thou/uL (130-400); RBC Distribution Width 15.3 % (11.5-14.5); Red Blood Cell (RBC) Count 3.93 mill/uL (4.70-6.10); White Blood Cell (WBC) Count 7.8 thou/uL (4.8-10.8)
[2021-08-31 18:21] LABS: ALT (SGPT) 19 U/L (8-55); AST (SGOT) 11 U/L (5-34); Albumin 3.9 g/dL (3.4-4.8); Alkaline Phosphatase 84 U/L (40-110); Anion Gap 12 mmol/L (10-20); BUN (Urea Nitrogen) 20 mg/dL (8.4-25.7); Bilirubin, Total 0.3 mg/dL (0.2-1.2); Calc. Creatinine Clearance 0 mL/min (70-130); Calcium 9.4 mg/dL (7.8-10.44); Carbon Dioxide 35 mmol/L (23-31); Chloride 98 mmol/L (98-107); Globulin 2.6 g/dL (2.4-3.5); Glucose 233 mg/dL (80-115); Potassium 4.1 mmol/L (3.5-5.1); Protein, Total 6.5 g/dL (5.8-8.1); Sodium 141 mmol/L (136-145)
[2021-08-31] MEDS ORDERED: Cefepime 2 GM VIAL ONE (19:34)
[2021-08-31] MEDS ORDERED: Vancomycin 1 GM/200 ML BAG ONE (21:46)
[2021-08-31 22:13] LABS: Bacteria/HPF None Seen HPF (None Seen); Bilirubin Negative (Negative); Blood, Urine Negative (Negative); Clarity Clear (Clear); Glucose, Urine (Dipstick) 70 mg/dL (Negative); Ketone, Urine Negative (Negative); Leukocyte Negative Leu/uL (Negative); Nitrite Negative (Negative); Protein, Urine (Dipstick) 50 mg/dL (Neg-Trace); RBC/HPF 0-3 HPF (0-3); Specific Gravity, Urine 1.012 (1.002-1.036); Squamous Epithelial None Seen HPF (0-3); Urobilinogen Normal mg/dL (Less than 2); WBC/HPF 0-3 HPF (0-3); pH, Urine 5.5 (5.0-9.0)
[2021-08-31 22:28] LABS: Troponin I Less than 0.010 ng/mL (< 0.028)
[2021-08-31 22:48] LABS: SARS-CoV-2 NAA Rapid Test Not Detected (NotDetected)
[2021-09-01 02:25] VITALS: BMI 42.5
[2021-09-01] MEDS ORDERED: Acetaminophen 325 MG TAB PO PRN (02:30)
[2021-09-01] MEDS ORDERED: Ondansetron ODT 4 MG TAB SL PRN (02:30)
[2021-09-01] MEDS ORDERED: Ondansetron PF 4 MG/2 ML Vial IVP PRN (02:30)
[2021-09-01] MEDS ORDERED: Pregabalin 75 MG CAP PO SCH (03:30)
[2021-09-01] MEDS ORDERED: HumaLOG 300 UNITS/3 ML VIAL SC PRN ×2 (06:04)
[2021-09-01] MEDS ORDERED: Dextrose 5% in Water 1,000 ML IV PRN ×2 (06:04→10:11)
[2021-09-01] MEDS ORDERED: Dextrose 50% Abboject 50 ML SYRINGE SLOW IVP PRN ×2 (06:04→10:11)
[2021-09-01 06:17] LABS: Troponin I 0.017 ng/mL (< 0.028)
[2021-09-01] MEDS: Pregabalin 75 MG CAP PO SCH ×2 (08:32→21:33)
[2021-09-01] MEDS ORDERED: Albuterol Sulfate 2.5 mg/3 ml Neb NEB PRN (10:11)
[2021-09-01] MEDS ORDERED: Insulin Glargine 50 UNITS in Pre-Filled Syringe 1 EACH SC SCH (10:14)
[2021-09-01] MEDS ORDERED: Acetaminophen/Codeine 30-300mg Tablet PO PRN ×2 (10:18)
[2021-09-01 11:35] LABS: #Basophils 0.1 thou/uL (0.0-0.2); #Eosinphils 0.5 thou/uL (0.0-0.7); #Lymphocytes 1.2 thou/uL (1.20-3.40); #Monocytes 0.5 thou/uL (0.11-0.59); %Basophils 0.7 % (0.0-1.0); %Eosinophils 5.7 % (0.0-10.0); %Lymphocytes 14.7 % (21.0-51.0); %Monocytes 5.9 % (0.0-10.0); Hemoglobin 10.6 g/dL (14.0-18.0); Mean Corpuscular HGB CONC 30.3 g/dL (32.0-36.0); Mean Corpuscular Hemoglobin 27.6 pg (27.0-31.0); Mean Corpuscular Volume 91.2 fL (78.0-98.0); Mean Platelet Volume 6.9 fL (7.4-10.4); Platelet Count 332 thou/uL (130-400); RBC Distribution Width 15.2 % (11.5-14.5); Red Blood Cell (RBC) Count 3.83 mill/uL (4.70-6.10); White Blood Cell (WBC) Count 8.2 thou/uL (4.8-10.8)
[2021-09-01] MEDS ORDERED: Carvedilol 6.25 MG TAB PO SCH (11:45)
[2021-09-01] MEDS ORDERED: Lantus 1000 UNITS/10 ML VIAL SC SCH (11:45)
[2021-09-01 11:52] LABS: Anion Gap 15 mmol/L (10-20); BUN (Urea Nitrogen) 19 mg/dL (8.4-25.7); Calc. Creatinine Clearance 91 mL/min (70-130); Calcium 9.4 mg/dL (7.8-10.44); Carbon Dioxide 33 mmol/L (23-31); Chloride 96 mmol/L (98-107); Glucose 363 mg/dL (80-115); Sodium 140 mmol/L (136-145)
[2021-09-01] MEDS ORDERED: Budesonide 0.5 MG/2 ML NEB NEB SCH (12:00)
[2021-09-01] MEDS ORDERED: Arformoterol 15 MCG/2 ML NEB NEB SCH (12:00)
[2021-09-01] MEDS ORDERED: Cefepime 2 GM in Sodium Chloride 0.9% 100 ML IVPB SCH ×2 (12:00→21:00)
[2021-09-01] MEDS: methylPREDNISolone Sod Succ 40 MG VIAL IVP SCH ×2 (12:03→17:59)
[2021-09-01] MEDS: ALPRAZolam 0.5 MG TAB PO PRN ×2 (12:21→21:32)
[2021-09-01] MEDS ORDERED: Vancomycin HCl 2.5 GM in Sodium Chloride 0.9% 500 ML IVPB SCH (14:15)
[2021-09-01] MEDS: Sodium Chloride 0.9% 1,000 ML IV SCH (15:15)
[2021-09-01] MEDS: hydrALAZINE 25 MG TAB PO SCH ×2 (15:16→21:32)
[2021-09-01] MEDS ORDERED: Iopamidol 370 76% 100 ML VIAL ONE (16:27)
[2021-09-01 17:19] LABS: Troponin I 0.014 ng/mL (< 0.028)
[2021-09-01] MEDS: HumaLOG 300 UNITS/3 ML VIAL SC PRN ×2 (17:59→21:48)
[2021-09-01] MEDS: Arformoterol 15 MCG/2 ML NEB NEB SCH (18:32)
[2021-09-01] MEDS: Budesonide 0.5 MG/2 ML NEB NEB SCH (18:33)
[2021-09-01] MEDS: Zolpidem Tartrate 5 MG TAB PO SCH (21:32)
[2021-09-01] MEDS: Sacubitril 49 MG/Valsartan 51 MG TABLET PO SCH (21:32)
[2021-09-01] MEDS: Carvedilol 6.25 MG TAB PO SCH (21:33)
[2021-09-01] MEDS: Atorvastatin Calcium 20 MG TAB PO SCH (21:34)
[2021-09-02] MEDS: methylPREDNISolone Sod Succ 40 MG VIAL IVP SCH ×2 (00:59→05:48)
[2021-09-02] MEDS ORDERED: Vancomycin 1.5 GRAM/300 ML BAG 1.5 GM in Premix Bag 1 BAG IVPB SCH (03:00)
[2021-09-02] MEDS: HumaLOG 300 UNITS/3 ML VIAL SC PRN ×4 (05:48→20:40)
[2021-09-02 06:36] LABS: #Lymphocytes 0.5 thou/uL (1.20-3.40); #Monocytes 0.1 thou/uL (0.11-0.59); #Neutrophils 7.3 thou/uL (1.40-6.50); %Eosinophils 0.1 % (0.0-10.0); %Lymphocytes 6.9 % (21.0-51.0); %Monocytes 0.6 % (0.0-10.0); %Neutrophils 92.4 % (42.0-75.0); Hemoglobin 10.7 g/dL (14.0-18.0); Mean Corpuscular HGB CONC 31.6 g/dL (32.0-36.0); Mean Corpuscular Hemoglobin 28.4 pg (27.0-31.0); Mean Corpuscular Volume 89.7 fL (78.0-98.0); Mean Platelet Volume 7.4 fL (7.4-10.4); Platelet Count 294 thou/uL (130-400); RBC Distribution Width 14.9 % (11.5-14.5); Red Blood Cell (RBC) Count 3.77 mill/uL (4.70-6.10); White Blood Cell (WBC) Count 7.9 thou/uL (4.8-10.8)
[2021-09-02 06:55] LABS: Anion Gap 15 mmol/L (10-20); BUN (Urea Nitrogen) 21 mg/dL (8.4-25.7); Calc. Creatinine Clearance 90 mL/min (70-130); Calcium 9.5 mg/dL (7.8-10.44); Carbon Dioxide 31 mmol/L (23-31); Chloride 98 mmol/L (98-107); Glucose 500 mg/dL (80-115); Potassium 4.4 mmol/L (3.5-5.1); Sodium 140 mmol/L (136-145)
[2021-09-02] MEDS ORDERED: Lantus 1000 UNITS/10 ML VIAL SC SCH ×2 (09:00→21:00)
[2021-09-02] MEDS: Arformoterol 15 MCG/2 ML NEB NEB SCH (10:20)
[2021-09-02] MEDS: hydrALAZINE 25 MG TAB PO SCH ×3 (10:32→20:43)
[2021-09-02] MEDS: Enoxaparin Sodium 40 MG/0.4 ML SYRINGE SC SCH (10:32)
[2021-09-02] MEDS: Pregabalin 75 MG CAP PO SCH ×2 (10:33→20:42)
[2021-09-02] MEDS: Aspirin 81 mg Enteric Coated Tablet PO SCH (10:36)
[2021-09-02] MEDS: Carvedilol 6.25 MG TAB PO SCH ×2 (10:36→20:43)
[2021-09-02] MEDS: Montelukast Sodium 10 mg Tablet PO SCH (10:36)
[2021-09-02] MEDS: predniSONE 20 MG TAB PO SCH (10:36)
[2021-09-02] MEDS: Sacubitril 49 MG/Valsartan 51 MG TABLET PO SCH ×2 (10:36→20:43)
[2021-09-02] MEDS: Spironolactone 25 MG TAB PO SCH (10:36)
[2021-09-02] MEDS: Clopidogrel Bisulfate 75 MG TAB PO SCH (10:36)
[2021-09-02] MEDS: Furosemide 40 MG TAB PO SCH ×2 (10:37→14:10)
[2021-09-02] MEDS: Lantus 1000 UNITS/10 ML VIAL SC SCH (10:40)
[2021-09-02] MEDS: Budesonide 0.5 MG/2 ML NEB NEB SCH ×2 (10:44→18:22)
[2021-09-02] MEDS: Sodium Chloride 0.9% 1,000 ML IV SCH (11:44)
[2021-09-02] MEDS: Zolpidem Tartrate 5 MG TAB PO SCH (20:43)
[2021-09-02] MEDS: ALPRAZolam 0.5 MG TAB PO PRN (20:43)
[2021-09-02] MEDS: Atorvastatin Calcium 20 MG TAB PO SCH (20:43)
[2021-09-03] MEDS: Arformoterol 15 MCG/2 ML NEB NEB SCH ×2 (01:37→07:32)
[2021-09-03] MEDS: HumaLOG 300 UNITS/3 ML VIAL SC PRN ×2 (06:15→12:07)
[2021-09-03] MEDS: Budesonide 0.5 MG/2 ML NEB NEB SCH (07:32)
[2021-09-03 07:34] LABS: Anion Gap 15 mmol/L (10-20); BUN (Urea Nitrogen) 25 mg/dL (8.4-25.7); Calc. Creatinine Clearance 101 mL/min (70-130); Calcium 9.3 mg/dL (7.8-10.44); Carbon Dioxide 31 mmol/L (23-31); Chloride 100 mmol/L (98-107); Glucose 240 mg/dL (80-115); Potassium 3.5 mmol/L (3.5-5.1); Sodium 142 mmol/L (136-145)
[2021-09-03] MEDS ORDERED: Azithromycin 250 MG TAB PO SCH (09:00)
[2021-09-03] MEDS ORDERED: Azithromycin 200 MG/5 ML Oral Suspension PO SCH (09:00)
[2021-09-03] MEDS: Pregabalin 75 MG CAP PO SCH (10:22)
[2021-09-03] MEDS: hydrALAZINE 25 MG TAB PO SCH ×2 (10:23→14:25)
[2021-09-03] MEDS: Clopidogrel Bisulfate 75 MG TAB PO SCH (10:24)
[2021-09-03] MEDS: Sacubitril 49 MG/Valsartan 51 MG TABLET PO SCH (10:24)
[2021-09-03] MEDS: Furosemide 40 MG TAB PO SCH ×2 (10:24→14:26)
[2021-09-03] MEDS: predniSONE 20 MG TAB PO SCH (10:24)
[2021-09-03] MEDS: Spironolactone 25 MG TAB PO SCH (10:24)
[2021-09-03] MEDS: Montelukast Sodium 10 mg Tablet PO SCH (10:24)
[2021-09-03] MEDS: Aspirin 81 mg Enteric Coated Tablet PO SCH (10:24)
[2021-09-03] MEDS: Lantus 1000 UNITS/10 ML VIAL SC SCH (10:25)
[2021-09-03] MEDS: Enoxaparin Sodium 40 MG/0.4 ML SYRINGE SC SCH (10:25)
[2021-09-03 15:43] VITALS: BP 171/92; TEMP 98.5
[2021-09-03] MEDS ORDERED: Carvedilol 25 MG TAB PO SCH (17:00)
== END 2021-09-03 17:28 | disposition home or self-care (01) | DRG 291 ==
LOC: ERS 15:58 → ERHOLD 20:58 → MSONC 09-01 02:15 → OBSVTOIN 09-01 11:43 → 2NO 09-01 16:08
PROVIDERS: ADMIT Student in an Organized Health Care Education/Training Program; ATTEND Internal Medicine
DX: I13.0 Hypertensive heart and chronic kidney disease with heart failure and stage 1 through stage 4 chronic kidney disease, or unspecified chronic kidney disease (principal); I50.43 Acute on chronic combined systolic (congestive) and diastolic (congestive) heart failure; J96.21 Acute and chronic respiratory failure with hypoxia; J44.1 Chronic obstructive pulmonary disease with (acute) exacerbation; Z68.41 Body mass index [BMI] 40.0-44.9, adult; E78.5 Hyperlipidemia, unspecified; G89.29 Other chronic pain; E11.42 Type 2 diabetes mellitus with diabetic polyneuropathy; K21.9 Gastro-esophageal reflux disease without esophagitis; E66.01 Morbid (severe) obesity due to excess calories; F41.9 Anxiety disorder, unspecified; M54.9 Dorsalgia, unspecified; D64.9 Anemia, unspecified; G47.33 Obstructive sleep apnea (adult) (pediatric); N18.30 Chronic kidney disease, stage 3 unspecified; E11.65 Type 2 diabetes mellitus with hyperglycemia; Z20.822 Contact with and (suspected) exposure to COVID-19; E11.22 Type 2 diabetes mellitus with diabetic chronic kidney disease; I25.10 Atherosclerotic heart disease of native coronary artery without angina pectoris; R94.31 Abnormal electrocardiogram [ECG] [EKG]; Z99.81 Dependence on supplemental oxygen; Z79.82 Long term (current) use of aspirin; Z79.02 Long term (current) use of antithrombotics/antiplatelets; Z79.84 Long term (current) use of oral hypoglycemic drugs; Z79.899 Other long term (current) drug therapy; Z95.5 Presence of coronary angioplasty implant and graft; Z79.4 Long term (current) use of insulin; Z90.49 Acquired absence of other specified parts of digestive tract; Z90.89 Acquired absence of other organs; Z87.891 Personal history of nicotine dependence
CPT/HCPCS: 36415; 36416; 70450; 71045; 71275; 80048; 80053; 81003; 81015; 83605; 83880; 84443; 84484; 85025; 85379; 87040; 93005; 93010; 93306; 94640; 94660; 96365; 96367; G0378; J0692; J1650; J1815; J2920; J3370; J3490; J7030; J7050; J7512; J7620; J7626; Q9967; U0002

== ENCOUNTER 2021-09-11 12:32 | Observation (INO) | payer MEDICARE ==
[~2021-09-11 12:32] MED LIST changes: +Iopamidol 370 76% 50 ML VIAL FS ONE; -Lidocaine 1% PF 5 ML VIAL ONE; -PROPOFOL 200 MG/20 ML VIAL ONE
[2021-09-11] MEDS ORDERED: Albuterol 200 PUFF (6.7GM INHALER) ONE (13:19)
[2021-09-11 13:37] LABS: Hemoglobin 10.4 g/dL (14.0-18.0); Mean Corpuscular HGB CONC 31.3 g/dL (32.0-36.0); Mean Corpuscular Volume 89.3 fL (78.0-98.0); Mean Platelet Volume 6.8 fL (7.4-10.4); Platelet Count 378 thou/uL (130-400); RBC Distribution Width 14.9 % (11.5-14.5); Red Blood Cell (RBC) Count 3.73 mill/uL (4.70-6.10); White Blood Cell (WBC) Count 5.6 thou/uL (4.8-10.8)
[2021-09-11 13:52] LABS: ALT (SGPT) 17 U/L (8-55); AST (SGOT) 15 U/L (5-34); Albumin 3.6 g/dL (3.4-4.8); Alkaline Phosphatase 67 U/L (40-110); Anion Gap 15 mmol/L (10-20); BUN (Urea Nitrogen) 15 mg/dL (8.4-25.7); Bilirubin, Total 0.3 mg/dL (0.2-1.2); Calc. Creatinine Clearance 0 mL/min (70-130); Calcium 9.3 mg/dL (7.8-10.44); Carbon Dioxide 33 mmol/L (23-31); Chloride 95 mmol/L (98-107); Globulin 2.7 g/dL (2.4-3.5); Glucose 170 mg/dL (80-115); Potassium 4.1 mmol/L (3.5-5.1); Protein, Total 6.3 g/dL (5.8-8.1); Sodium 139 mmol/L (136-145)
[2021-09-11 14:21] LABS: Band 8 % (5-11); Eosinophils 3 % (0-10); Hypochromia SLIGHT = 6-15 cells (100X) (0-5/hpf); Lymphocytes 17 % (21-51); MDiff Complete? YES; Monocytes 20 % (0-10); Neutrophil 50 % (42-75); Ovalocytes SLIGHT = 2-5 cells (100X) (0-1/hpf); Platelet Morphology Comment Appears Adequate; Polychromasia SLIGHT = 2-3 cells (100X) (0-2/hpf); Stomatocytes SLIGHT = 2-5 cells (100X) (0-1/hpf)
[2021-09-11 14:50] LABS: SARS-CoV-2 NAA Rapid Test DETECTED (NotDetected)
[2021-09-11] MEDS ORDERED: Aspirin 325 MG TAB ONE (15:00)
[2021-09-11] MEDS ORDERED: Aspirin Chewable 81 MG TAB ONE (15:00)
[2021-09-11] MEDS ORDERED: methylPREDNISolone Sod Succ/PF 125 MG/2 ML VIAL ONE (15:00)
[2021-09-11] MEDS ORDERED: cefTRIAXone\\ROCEPHIN 2 GM VIAL ONE (15:01)
[2021-09-11] MEDS ORDERED: Ondansetron PF 4 MG/2 ML Vial IVP PRN (15:48)
[2021-09-11] MEDS ORDERED: Acetaminophen 325 MG TAB PO PRN (15:48)
[2021-09-11] MEDS ORDERED: Dexamethasone 4 mg/ml Vial SLOW IVP SCH (16:00)
[2021-09-11] MEDS ORDERED: Dextrose 5% in Water 1,000 ML IV PRN (16:05)
[2021-09-11] MEDS ORDERED: Dextrose 50% Abboject 50 ML SYRINGE SLOW IVP PRN (16:05)
[2021-09-11] MEDS ORDERED: Azithromycin 500 MG VIAL ONE (17:11)
[2021-09-11] MEDS: Albuterol 200 PUFF (6.7GM INHALER) INH SCH ×2 (19:47→21:41)
[2021-09-11 19:54] VITALS: BMI 43.7
[2021-09-11] MEDS: NIFEdipine XL 30 MG TAB PO SCH (20:31)
[2021-09-11] MEDS: Pregabalin 75 MG CAP PO SCH (20:32)
[2021-09-11] MEDS: Carvedilol 25 MG TAB PO SCH (20:32)
[2021-09-11] MEDS ORDERED: traMADol HCl 50 MG TAB PO SCH (23:59)
[2021-09-12] MEDS ORDERED: ALPRAZolam 0.5 MG TAB PO SCH (00:15)
[2021-09-12] MEDS: Albuterol 200 PUFF (6.7GM INHALER) INH SCH ×5 (00:23→17:52)
[2021-09-12 05:28] LABS: #Lymphocytes 0.6 thou/uL (1.20-3.40); #Monocytes 0.2 thou/uL (0.11-0.59); #Neutrophils 3.2 thou/uL (1.40-6.50); %Basophils 0.2 % (0.0-1.0); %Eosinophils 0.7 % (0.0-10.0); %Lymphocytes 14.3 % (21.0-51.0); %Monocytes 4.3 % (0.0-10.0); %Neutrophils 80.6 % (42.0-75.0); Hemoglobin 11.3 g/dL (14.0-18.0); Mean Corpuscular HGB CONC 31.9 g/dL (32.0-36.0); Mean Corpuscular Hemoglobin 28.4 pg (27.0-31.0); Mean Corpuscular Volume 88.8 fL (78.0-98.0); Mean Platelet Volume 6.8 fL (7.4-10.4); Platelet Count 380 thou/uL (130-400); RBC Distribution Width 14.9 % (11.5-14.5); Red Blood Cell (RBC) Count 3.98 mill/uL (4.70-6.10)
[2021-09-12] MEDS: HumaLOG 300 UNITS/3 ML VIAL SC PRN ×2 (05:28→12:58)
[2021-09-12] MEDS: Furosemide 20 MG/2 ML VIAL SLOW IVP SCH ×2 (05:28→12:57)
[2021-09-12 05:51] LABS: Anion Gap 14 mmol/L (10-20); BUN (Urea Nitrogen) 20 mg/dL (8.4-25.7); Calc. Creatinine Clearance 104 mL/min (70-130); Calcium 9.2 mg/dL (7.8-10.44); Carbon Dioxide 34 mmol/L (23-31); Chloride 95 mmol/L (98-107); Glucose 278 mg/dL (80-115); Potassium 4.6 mmol/L (3.5-5.1); Sodium 138 mmol/L (136-145)
[2021-09-12] MEDS: Carvedilol 25 MG TAB PO SCH ×2 (07:50→17:52)
[2021-09-12] MEDS: NIFEdipine XL 30 MG TAB PO SCH (07:51)
[2021-09-12] MEDS: Pregabalin 75 MG CAP PO SCH (07:52)
[2021-09-12] MEDS ORDERED: Dexamethasone 4 mg/ml Vial SLOW IVP SCH (09:00)
[2021-09-12] MEDS ORDERED: Aspirin 81 mg Enteric Coated Tablet PO SCH (09:00)
[2021-09-12] MEDS ORDERED: Atorvastatin Calcium 20 MG TAB PO SCH (09:00)
[2021-09-12] MEDS ORDERED: Enoxaparin Sodium 40 MG/0.4 ML SYRINGE SC SCH (09:00)
[2021-09-12 15:54] VITALS: BP 156/78; TEMP 97.6
[2021-09-12] MEDS ORDERED: Lantus 1000 UNITS/10 ML VIAL SC SCH (17:15)
== END 2021-09-12 18:50 | disposition home or self-care (01) ==
LOC: ERS 12:32 → 2SW 15:14
PROVIDERS: ADMIT Internal Medicine; ATTEND Internal Medicine
DX: U07.1 COVID-19 (principal); J12.82 Pneumonia due to coronavirus disease 2019; J96.21 Acute and chronic respiratory failure with hypoxia; I13.0 Hypertensive heart and chronic kidney disease with heart failure and stage 1 through stage 4 chronic kidney disease, or unspecified chronic kidney disease; E11.22 Type 2 diabetes mellitus with diabetic chronic kidney disease; N18.30 Chronic kidney disease, stage 3 unspecified; I50.23 Acute on chronic systolic (congestive) heart failure; E11.42 Type 2 diabetes mellitus with diabetic polyneuropathy; E78.5 Hyperlipidemia, unspecified; K21.9 Gastro-esophageal reflux disease without esophagitis; J44.1 Chronic obstructive pulmonary disease with (acute) exacerbation; I25.2 Old myocardial infarction; M79.7 Fibromyalgia; M19.90 Unspecified osteoarthritis, unspecified site; Z87.891 Personal history of nicotine dependence; Z79.2 Long term (current) use of antibiotics; Z79.02 Long term (current) use of antithrombotics/antiplatelets; Z79.4 Long term (current) use of insulin; Z79.82 Long term (current) use of aspirin; Z79.84 Long term (current) use of oral hypoglycemic drugs; Z79.899 Other long term (current) drug therapy; Z88.0 Allergy status to penicillin; Z95.5 Presence of coronary angioplasty implant and graft; Z99.81 Dependence on supplemental oxygen
CPT/HCPCS: 71045; 71275; 80048; 80053; 82962 ×2; 83605; 83880; 84484 ×2; 85025 ×2; 85379; 87040; 93005; 97139; U0002; 36415; 36416; 96365; 96367; 96372; 96375; 96376; G0378; J0456; J0696; J1100; J1650; J1815; J1940; J2930; Q9967

== ENCOUNTER 2021-12-08 13:06 | Outpatient (CLI) | payer MEDICARE ==
[2021-12-08 23:10] LABS: SARS-CoV-2 PCR by NAA DETECTED (NotDetected)
== END 2021-12-08 13:07 | disposition home or self-care (01) ==
LOC: LABBT 13:06
DX: U07.1 COVID-19 (principal)
CPT/HCPCS: U0003; U0005

== ENCOUNTER 2022-02-09 07:00 | Day surgery (SDC) | payer MEDICARE ==
[2022-02-08 15:55] VITALS: BMI 42.3
[2022-02-09 07:47] VITALS: TEMP 97.6
[2022-02-09] MEDS ORDERED: Iopamidol-M 300 61% 15 ML VIAL ONE (11:43)
[2022-02-09 12:59] VITALS: BP 154/90
== END 2022-02-09 10:10 | disposition home or self-care (01) ==
LOC: RAD 07:00 → EDSTATUS 08:00 → RAD 10:10
PROVIDERS: ATTEND Neurological Surgery
PROC: B01B1ZZ Fluoroscopy of Spinal Cord using Low Osmolar Contrast (ICD-10-PCS; principal; 2022-02-09)
DX: M47.12 Other spondylosis with myelopathy, cervical region (principal); M47.22 Other spondylosis with radiculopathy, cervical region; M48.02 Spinal stenosis, cervical region; M47.813 Spondylosis without myelopathy or radiculopathy, cervicothoracic region; M51.14 Intervertebral disc disorders with radiculopathy, thoracic region; M47.816 Spondylosis without myelopathy or radiculopathy, lumbar region; M51.36 Other intervertebral disc degeneration, lumbar region; M48.062 Spinal stenosis, lumbar region with neurogenic claudication; M47.817 Spondylosis without myelopathy or radiculopathy, lumbosacral region; M48.07 Spinal stenosis, lumbosacral region; I70.0 Atherosclerosis of aorta; I65.23 Occlusion and stenosis of bilateral carotid arteries; E11.9 Type 2 diabetes mellitus without complications; I11.0 Hypertensive heart disease with heart failure; I50.9 Heart failure, unspecified; E78.00 Pure hypercholesterolemia, unspecified; G89.29 Other chronic pain; M54.50 Low back pain, unspecified; Z87.891 Personal history of nicotine dependence; Z79.02 Long term (current) use of antithrombotics/antiplatelets; Z79.4 Long term (current) use of insulin; Z79.82 Long term (current) use of aspirin; Z79.84 Long term (current) use of oral hypoglycemic drugs; Z79.899 Other long term (current) drug therapy; Z88.0 Allergy status to penicillin
CPT/HCPCS: 62305; 72126; 72129; 72132; Q9967

== ENCOUNTER 2022-04-21 14:39 | Outpatient (CLI) | payer OTHER | END 2022-04-21 14:40 | disposition home or self-care (01) | LOC: DTY/OP 14:39 | PROVIDERS: ATTEND Surgery | DX: E66.01 Morbid (severe) obesity due to excess calories (principal) | CPT/HCPCS: 97802 ==

== ENCOUNTER 2022-06-14 10:45 | Inpatient (IN) | payer OTHER ==
[2022-06-27 10:41] VITALS: BMI 44.9
[2022-06-28] MEDS ORDERED: fentaNYL PF 100 MCG/2 ML SYRINGE ONE (06:40)
[2022-06-28] MEDS ORDERED: Bupivacaine/Epinephrine 0.25% 30 ML VIAL ONE (07:03)
[2022-06-28] MEDS ORDERED: Levofloxacin 500 mg/D5W 100 ml Premix Bag ONE (07:23)
[2022-06-28] MEDS ORDERED: Midazolam HCl 2 mg/2 ml Vial ONE (07:35)
[2022-06-28] MEDS ORDERED: Phenylephrine 10 MG/ML VIAL ONE (07:40)
[2022-06-28] MEDS ORDERED: Norepinephrine 4 MG/4 ML VIAL ONE (07:40)
[2022-06-28] MEDS ORDERED: Albuterol Sulfate HFA (OR ONLY) ONE ×2 (07:40→07:52)
[2022-06-28] MEDS ORDERED: PROPOFOL 200 MG/20 ML VIAL ONE (07:52)
[2022-06-28] MEDS ORDERED: Ondansetron PF 4 MG/2 ML Vial ONE (07:52)
[2022-06-28] MEDS ORDERED: Rocuronium Bromide 10 MG/ML (10ML VIAL) ONE (07:52)
[2022-06-28] MEDS ORDERED: Succinylcholine Chloride 200 MG/10 ML VIAL ONE (07:52)
[2022-06-28] MEDS ORDERED: Ketorolac Tromethamine 30 MG/ML VIAL ONE (07:52)
[2022-06-28] MEDS ORDERED: SUGAMMADEX SODIUM 200 MG/2 ML VIAL ONE ×2 (08:24→08:29)
[2022-06-28] MEDS ORDERED: FENTANYL 50 MCG/ML 1 ML VIAL ONE (08:58)
[2022-06-28 09:01] LABS: SARS-CoV-2 NAA Rapid Test Not Detected (NotDetected)
[2022-06-28] MEDS ORDERED: HYDROcodone/Acetaminophen 5/325 mg Tablet ONE (09:52)
== END 2022-06-28 11:15 | disposition home or self-care (01) | DRG 621 ==
LOC: SURG A 06-28 05:44
PROVIDERS: ADMIT Surgery; ATTEND Surgery
PROC: 0DB64Z3 Excision of Stomach, Percutaneous Endoscopic Approach, Vertical (ICD-10-PCS; principal; 2022-06-28)
DX: E66.01 Morbid (severe) obesity due to excess calories (principal); Z20.822 Contact with and (suspected) exposure to COVID-19; E11.9 Type 2 diabetes mellitus without complications; I50.9 Heart failure, unspecified; E78.00 Pure hypercholesterolemia, unspecified; E78.1 Pure hyperglyceridemia; I11.0 Hypertensive heart disease with heart failure; M19.90 Unspecified osteoarthritis, unspecified site; G89.29 Other chronic pain; Z68.41 Body mass index [BMI] 40.0-44.9, adult; Z88.0 Allergy status to penicillin; Z79.899 Other long term (current) drug therapy; Z87.442 Personal history of urinary calculi; Z90.49 Acquired absence of other specified parts of digestive tract; Z87.891 Personal history of nicotine dependence
CPT/HCPCS: 36416; J0330; J1885; J1956; J2250; J2370; J2405; J2704; J3010; U0002

== ENCOUNTER 2022-06-14 10:52 | Outpatient (CLI) | payer OTHER ==
[2022-06-14 12:40] LABS: #Basophils 0.1 10x3/uL (0.0-0.2); #Eosinphils 0.2 10x3/uL (0.0-0.5); #Monocytes 0.7 10x3/uL (0.0-1.1); #Neutrophils 5.8 10x3/uL (1.5-8.4); %Basophils 0.8 % (0.0-2.0); %Eosinophils 1.8 % (0.0-6.0); %Lymphocytes 19.4 % (18.0-47.0); %Monocytes 7.8 % (0.0-10.0); Hemoglobin 10.2 g/dL (13.5-17.5); Mean Corpuscular HGB CONC 31.7 g/dL (32.0-36.0); Mean Corpuscular Hemoglobin 26.8 pg (27.0-33.0); Mean Corpuscular Volume 84.5 fl (81.2-95.1); Mean Platelet Volume 9.2 fl (7.4-10.4); Platelet Count 444 10x3/uL (150-450); RBC Distribution Width 15.2 % (11.5-14.5); Red Blood Cell (RBC) Count 3.81 10x6/uL (4.32-5.72); White Blood Cell (WBC) Count 8.3 10x3/uL (3.5-10.5)
[2022-06-14 13:27] LABS: ALT (SGPT) 16 U/L (8-55); AST (SGOT) 14 U/L (5-34); Albumin 4.2 g/dL (3.4-4.8); Alkaline Phosphatase 93 U/L (40-110); Anion Gap 13 mmol/L (10-20); BUN (Urea Nitrogen) 16 mg/dL (8.4-25.7); Bilirubin, Total 0.3 mg/dL (0.2-1.2); Calc. Creatinine Clearance 0 mL/min (70-130); Calcium 10.1 mg/dL (7.8-10.44); Carbon Dioxide 31 mmol/L (23-31); Chloride 102 mmol/L (98-107); Estimated GFR 48; Globulin 2.6 g/dL (2.4-3.5); Glucose 128 mg/dL (80-115); Potassium 4.8 mmol/L (3.5-5.1); Protein, Total 6.8 g/dL (5.8-8.1); Sodium 141 mmol/L (136-145)
[2022-06-14 16:49] LABS: Hemoglobin A1c 8.5 % (4.0-6.0)
== END 2022-06-14 10:53 | disposition home or self-care (01) ==
LOC: LABBT 10:52
PROVIDERS: ATTEND Surgery
DX: Z01.818 Encounter for other preprocedural examination (principal); E66.01 Morbid (severe) obesity due to excess calories
CPT/HCPCS: 71046; 80053; 83036; 85025

== ENCOUNTER 2022-07-28 13:15 | Inpatient (IN) | payer OTHER ==
[2022-08-04 14:53] VITALS: BMI 42.3
[2022-08-09 07:58] LABS: SARS-CoV-2 NAA Rapid Test Not Detected (NotDetected)
[2022-08-09] MEDS ORDERED: Phenylephrine 10 MG/ML VIAL ONE (08:48)
[2022-08-09] MEDS ORDERED: Fentanyl 250 MCG/5 ML VIAL ONE (08:48)
[2022-08-09] MEDS ORDERED: SUGAMMADEX SODIUM 200 MG/2 ML VIAL ONE (08:48)
[2022-08-09] MEDS ORDERED: Bupivacaine/Epinephrine 0.25% 30 ML VIAL ONE (08:49)
[2022-08-09] MEDS ORDERED: Levofloxacin 500 mg/D5W 100 ml Premix Bag ONE (09:06)
[2022-08-09] MEDS ORDERED: Ondansetron PF 4 MG/2 ML Vial ONE (09:22)
[2022-08-09] MEDS ORDERED: Succinylcholine Chloride 100 MG/5 ML SYRINGE FS ONE (09:22)
[2022-08-09] MEDS ORDERED: Lidocaine 1% PF 5 ML VIAL ONE (09:22)
[2022-08-09] MEDS ORDERED: Albuterol Sulfate HFA (OR ONLY) ONE (09:22)
[2022-08-09] MEDS ORDERED: Rocuronium Bromide 10 MG/ML (10ML VIAL) ONE (09:22)
[2022-08-09] MEDS ORDERED: PROPOFOL 200 MG/20 ML VIAL ONE (09:22)
== END 2022-08-09 11:29 | disposition home or self-care (01) | DRG 641 ==
LOC: SURG A 08-09 06:59 → EDSTATUS 08-09 14:28
PROVIDERS: ADMIT Surgery; ATTEND Surgery
DX: E66.01 Morbid (severe) obesity due to excess calories (principal); Z20.822 Contact with and (suspected) exposure to COVID-19; Z68.41 Body mass index [BMI] 40.0-44.9, adult; Z53.8 Procedure and treatment not carried out for other reasons; Z88.0 Allergy status to penicillin; Z79.899 Other long term (current) drug therapy; Z79.51 Long term (current) use of inhaled steroids
CPT/HCPCS: 36416; J1956; J2370; J2405; J2704; J3010; U0002

== ENCOUNTER 2022-11-19 12:45 | Inpatient (IN) | payer OTHER ==
[2022-11-19 17:18] VITALS: BMI 41.8
[2022-11-19] MEDS ORDERED: Ondansetron PF 4 MG/2 ML Vial IVP PRN (18:19)
[2022-11-19] MEDS ORDERED: Dextrose 50% Abboject 50 ML SYRINGE SLOW IVP PRN (18:19)
[2022-11-19] MEDS ORDERED: HumaLOG 300 UNITS/3 ML VIAL SC PRN ×2 (18:19)
[2022-11-19] MEDS ORDERED: Dextrose 5% in Water 1,000 ML IV PRN (18:19)
[2022-11-19] MEDS ORDERED: Famotidine 20 MG TAB PO PRN (18:19)
[2022-11-19] MEDS ORDERED: Nitroglycerin 0.4 MG TAB (25 Tab Bottle) SL PRN (18:19)
[2022-11-19] MEDS ORDERED: Ondansetron ODT 4 MG TAB PO PRN (18:19)
[2022-11-19] MEDS ORDERED: Acetaminophen 325 MG TAB PO PRN (18:19)
[2022-11-19] MEDS ORDERED: Ipratropium/Albuterol 3 ML NEB NEB PRN (18:57)
[2022-11-19 18:59] LABS: #Basophils 0.1 thou/uL (0.0-0.2); #Eosinphils 0.2 thou/uL (0.0-0.7); #Lymphocytes 2.1 thou/uL (1.20-3.40); #Monocytes 0.8 thou/uL (0.11-0.59); %Basophils 0.9 % (0.0-1.0); %Eosinophils 2.4 % (0.0-10.0); %Lymphocytes 20.1 % (21.0-51.0); %Monocytes 7.9 % (0.0-10.0); %Neutrophils 68.7 % (42.0-75.0); Hemoglobin 9.7 g/dL (14.0-18.0); Mean Corpuscular HGB CONC 33.5 g/dL (32.0-36.0); Mean Corpuscular Hemoglobin 26.8 pg (27.0-31.0); Mean Platelet Volume 7.4 fL (7.4-10.4); Platelet Count 426 10x3/uL (130-400); RBC Distribution Width 15.8 % (11.5-14.5); White Blood Cell (WBC) Count 10.2 10x3/uL (4.8-10.8)
[2022-11-19 19:21] LABS: ALT (SGPT) 17 U/L (8-55); AST (SGOT) 15 U/L (5-34); Albumin 4.2 g/dL (3.4-4.8); Alkaline Phosphatase 97 U/L (40-110); Anion Gap 12 mmol/L (10-20); BUN (Urea Nitrogen) 17 mg/dL (8.4-25.7); Bilirubin, Total 0.3 mg/dL (0.2-1.2); Calc. Creatinine Clearance 89 mL/min (70-130); Calcium 9.8 mg/dL (7.8-10.44); Carbon Dioxide 28 mmol/L (23-31); Chloride 106 mmol/L (98-107); Estimated GFR 43; Globulin 2.6 g/dL (2.4-3.5); Glucose 79 mg/dL (80-115); Potassium 4.7 mmol/L (3.5-5.1); Protein, Total 6.8 g/dL (5.8-8.1); Sodium 141 mmol/L (136-145)
[2022-11-19 19:24] LABS: Troponin I 0.054 ng/mL (< 0.028)
[2022-11-19] MEDS: HYDROcodone/Acetaminophen 5/325 mg Tablet PO PRN (19:26)
[2022-11-19] MEDS ORDERED: Nitroglycerin 2% Ointment 1 INCH/1 GM Packet TOP PRN (20:19)
[2022-11-19] MEDS: NIFEdipine XL 60 MG TAB PO SCH (20:28)
[2022-11-19] MEDS: hydrALAZINE 25 MG TAB PO SCH (20:28)
[2022-11-19] MEDS: Atorvastatin Calcium 20 MG TAB PO SCH (20:28)
[2022-11-19] MEDS: Pregabalin 75 MG CAP PO SCH (20:28)
[2022-11-19] MEDS: ALPRAZolam 1 MG TAB PO PRN (20:29)
[2022-11-19] MEDS: Sacubitril 49 MG/Valsartan 51 MG TABLET PO SCH (20:29)
[2022-11-19] MEDS: Zolpidem Tartrate 5 MG TAB PO SCH ×2 (20:39→21:24)
[2022-11-19 22:24] LABS: Troponin I 0.042 ng/mL (< 0.028)
[2022-11-19] MEDS ORDERED: Albuterol 200 PUFF (6.7GM INHALER) INH SCH (22:30)
[2022-11-20] MEDS ORDERED: Ipratropium/Albuterol 3 ML NEB NEB SCH (01:00)
[2022-11-20] MEDS: HYDROcodone/Acetaminophen 5/325 mg Tablet PO PRN ×6 (01:58→22:17)
[2022-11-20 05:14] LABS: Cardiac Risk 4.1 (Less than 4.5)
[2022-11-20] MEDS ORDERED: HumaLOG 300 UNITS/3 ML VIAL SC SCH (08:00)
[2022-11-20] MEDS: Clopidogrel Bisulfate 75 MG TAB PO SCH (08:51)
[2022-11-20] MEDS: Sacubitril 49 MG/Valsartan 51 MG TABLET PO SCH ×2 (08:51→20:24)
[2022-11-20] MEDS: Pregabalin 75 MG CAP PO SCH ×2 (08:51→20:22)
[2022-11-20] MEDS: Icosapent Ethyl 1 GM CAPSULE PO SCH ×2 (08:51→16:43)
[2022-11-20] MEDS: hydrALAZINE 25 MG TAB PO SCH ×3 (08:52→20:24)
[2022-11-20] MEDS: NIFEdipine XL 60 MG TAB PO SCH ×2 (08:52→20:24)
[2022-11-20] MEDS: Montelukast Sodium 10 mg Tablet PO SCH (08:52)
[2022-11-20] MEDS: Aspirin 81 mg Enteric Coated Tablet PO SCH (08:52)
[2022-11-20] MEDS: Atorvastatin Calcium 20 MG TAB PO SCH (20:25)
[2022-11-20] MEDS: ALPRAZolam 1 MG TAB PO PRN (20:25)
[2022-11-20] MEDS: Zolpidem Tartrate 5 MG TAB PO SCH (22:17)
[2022-11-21] MEDS: HYDROcodone/Acetaminophen 5/325 mg Tablet PO PRN ×4 (02:26→21:59)
[2022-11-21 04:51] LABS: #Basophils 0.1 thou/uL (0.0-0.2); #Eosinphils 0.3 thou/uL (0.0-0.7); #Lymphocytes 1.7 thou/uL (1.20-3.40); #Monocytes 0.6 thou/uL (0.11-0.59); #Neutrophils 3.6 thou/uL (1.40-6.50); %Eosinophils 4.5 % (0.0-10.0); %Lymphocytes 27.2 % (21.0-51.0); %Neutrophils 57.2 % (42.0-75.0); Hemoglobin 9.1 g/dL (14.0-18.0); Mean Corpuscular HGB CONC 31.3 g/dL (32.0-36.0); Mean Corpuscular Hemoglobin 25.3 pg (27.0-31.0); Mean Corpuscular Volume 80.9 fl (78.0-98.0); Mean Platelet Volume 7.6 fL (7.4-10.4); Platelet Count 409 10x3/uL (130-400); RBC Distribution Width 15.8 % (11.5-14.5); Red Blood Cell (RBC) Count 3.59 mill/uL (4.70-6.10); White Blood Cell (WBC) Count 6.3 10x3/uL (4.8-10.8)
[2022-11-21 05:11] LABS: Anion Gap 13 mmol/L (10-20); BUN (Urea Nitrogen) 18 mg/dL (8.4-25.7); Calc. Creatinine Clearance 101 mL/min (70-130); Calcium 9.1 mg/dL (7.8-10.44); Carbon Dioxide 26 mmol/L (23-31); Chloride 106 mmol/L (98-107); Estimated GFR 51; Glucose 120 mg/dL (80-115); Sodium 141 mmol/L (136-145)
[2022-11-21] MEDS: Icosapent Ethyl 1 GM CAPSULE PO SCH ×2 (09:43→18:13)
[2022-11-21] MEDS: Aspirin 81 mg Enteric Coated Tablet PO SCH (09:44)
[2022-11-21] MEDS: Clopidogrel Bisulfate 75 MG TAB PO SCH (09:44)
[2022-11-21] MEDS: Pregabalin 75 MG CAP PO SCH ×2 (09:45→21:58)
[2022-11-21] MEDS: NIFEdipine XL 60 MG TAB PO SCH ×2 (09:45→21:57)
[2022-11-21] MEDS: hydrALAZINE 25 MG TAB PO SCH ×2 (09:45→22:00)
[2022-11-21] MEDS: Lidocaine 4% Patch TD SCH (09:45)
[2022-11-21] MEDS: Sacubitril 49 MG/Valsartan 51 MG TABLET PO SCH ×2 (09:47→21:57)
[2022-11-21] MEDS: Montelukast Sodium 10 mg Tablet PO SCH (11:52)
[2022-11-21] MEDS ORDERED: Communication Order-Pharmacy FS SCH (18:00)
[2022-11-21] MEDS: Atorvastatin Calcium 20 MG TAB PO SCH (21:58)
[2022-11-21] MEDS: Zolpidem Tartrate 5 MG TAB PO SCH (21:59)
[2022-11-21] MEDS: Transdermal Patch Removal TOP SCH (22:02)
[2022-11-22] MEDS ORDERED: Sodium Chloride 0.9% 500 ML IV SCH ×2 (00:01→08:45)
[2022-11-22] MEDS: HYDROcodone/Acetaminophen 5/325 mg Tablet PO PRN ×4 (02:02→20:50)
[2022-11-22 06:15] LABS: Anion Gap 15 mmol/L (10-20); BUN (Urea Nitrogen) 16 mg/dL (8.4-25.7); Calc. Creatinine Clearance 107 mL/min (70-130); Calcium 9.1 mg/dL (7.8-10.44); Carbon Dioxide 22 mmol/L (23-31); Chloride 107 mmol/L (98-107); Estimated GFR 54; Glucose 121 mg/dL (80-115); Sodium 140 mmol/L (136-145)
[2022-11-22] MEDS ORDERED: Heparin 10,000 UNITS/ 10 ML VIAL ONE ×2 (06:24→08:01)
[2022-11-22] MEDS ORDERED: Verapamil 5 MG/2 ML VIAL ONE (06:24)
[2022-11-22] MEDS ORDERED: Lidocaine 1% w/Epinephrine 1:100K 20 ML VIAL ONE (06:24)
[2022-11-22] MEDS ORDERED: Nitroglycerin 50 MG/250 ML BOT 250 ML ONE (06:25)
[2022-11-22] MEDS ORDERED: Lidocaine 1% (PF) 30 ML VIAL ONE (06:26)
[2022-11-22] MEDS ORDERED: Lidocaine 1% PF 5 ML VIAL ONE (06:28)
[2022-11-22] MEDS ORDERED: Midazolam HCl 2 mg/2 ml Vial ONE (07:26)
[2022-11-22] MEDS ORDERED: fentaNYL 50 mcg/mL 1 mL Vial ONE (07:26)
[2022-11-22] MEDS ORDERED: Clopidogrel Bisulfate 300 MG TAB ONE (08:08)
[2022-11-22] MEDS ORDERED: Morphine 2 MG/ML VIAL SLOW IVP PRN (08:35)
[2022-11-22] MEDS: Icosapent Ethyl 1 GM CAPSULE PO SCH ×2 (09:24→17:57)
[2022-11-22] MEDS: Clopidogrel Bisulfate 75 MG TAB PO SCH (09:26)
[2022-11-22] MEDS: Aspirin 81 mg Enteric Coated Tablet PO SCH (09:26)
[2022-11-22] MEDS: Montelukast Sodium 10 mg Tablet PO SCH (09:27)
[2022-11-22] MEDS: Lidocaine 4% Patch TD SCH (09:27)
[2022-11-22] MEDS: NIFEdipine XL 60 MG TAB PO SCH ×2 (09:27→20:54)
[2022-11-22] MEDS: hydrALAZINE 25 MG TAB PO SCH ×2 (09:27→20:52)
[2022-11-22] MEDS: Pregabalin 75 MG CAP PO SCH ×2 (09:28→20:49)
[2022-11-22] MEDS: Sacubitril 49 MG/Valsartan 51 MG TABLET PO SCH ×2 (09:29→20:54)
[2022-11-22] MEDS ORDERED: Calcium Carbonate 500 MG ChewTAB PO PRN (10:06)
[2022-11-22] MEDS ORDERED: Iopamidol 370 76% 100 ML VIAL ONE (15:17)
[2022-11-22] MEDS: Carvedilol 3.125 MG TAB PO SCH (17:57)
[2022-11-22] MEDS: Zolpidem Tartrate 5 MG TAB PO SCH (20:54)
[2022-11-22] MEDS: Atorvastatin Calcium 20 MG TAB PO SCH (20:54)
[2022-11-22] MEDS: Transdermal Patch Removal TOP SCH (20:55)
[2022-11-23 04:44] LABS: #Basophils 0.1 thou/uL (0.0-0.2); #Eosinphils 0.3 thou/uL (0.0-0.7); #Lymphocytes 1.7 thou/uL (1.20-3.40); #Monocytes 0.7 thou/uL (0.11-0.59); #Neutrophils 4.3 thou/uL (1.40-6.50); %Basophils 1.3 % (0.0-1.0); %Eosinophils 4.6 % (0.0-10.0); %Lymphocytes 24.2 % (21.0-51.0); %Monocytes 9.6 % (0.0-10.0); %Neutrophils 60.4 % (42.0-75.0); Hemoglobin 8.6 g/dL (14.0-18.0); Mean Corpuscular Volume 81.4 fl (78.0-98.0); Mean Platelet Volume 7.2 fL (7.4-10.4); Platelet Count 467 10x3/uL (130-400); Red Blood Cell (RBC) Count 3.31 mill/uL (4.70-6.10); White Blood Cell (WBC) Count 7.1 10x3/uL (4.8-10.8)
[2022-11-23] MEDS: HYDROcodone/Acetaminophen 5/325 mg Tablet PO PRN ×2 (04:55→10:37)
[2022-11-23 05:10] LABS: ALT (SGPT) 12 U/L (8-55); AST (SGOT) 16 U/L (5-34); Albumin 3.7 g/dL (3.4-4.8); Alkaline Phosphatase 78 U/L (40-110); Anion Gap 10 mmol/L (10-20); BUN (Urea Nitrogen) 15 mg/dL (8.4-25.7); Bilirubin, Total 0.2 mg/dL (0.2-1.2); Calc. Creatinine Clearance 100 mL/min (70-130); Carbon Dioxide 27 mmol/L (23-31); Chloride 108 mmol/L (98-107); Estimated GFR 49; Globulin 2.6 g/dL (2.4-3.5); Glucose 155 mg/dL (80-115); Potassium 3.9 mmol/L (3.5-5.1); Protein, Total 6.3 g/dL (5.8-8.1); Sodium 141 mmol/L (136-145)
[2022-11-23] MEDS: Carvedilol 3.125 MG TAB PO SCH (10:32)
[2022-11-23] MEDS: Clopidogrel Bisulfate 75 MG TAB PO SCH (10:33)
[2022-11-23] MEDS: Pregabalin 75 MG CAP PO SCH (10:36)
[2022-11-23] MEDS: hydrALAZINE 25 MG TAB PO SCH (10:36)
[2022-11-23] MEDS: Sacubitril 49 MG/Valsartan 51 MG TABLET PO SCH (10:37)
[2022-11-23] MEDS: NIFEdipine XL 60 MG TAB PO SCH (10:37)
[2022-11-23] MEDS: Aspirin 81 mg Enteric Coated Tablet PO SCH (10:40)
[2022-11-23] MEDS: Icosapent Ethyl 1 GM CAPSULE PO SCH (10:40)
[2022-11-23] MEDS: Montelukast Sodium 10 mg Tablet PO SCH (11:20)
[2022-11-23] MEDS: Lidocaine 4% Patch TD SCH (11:20)
[2022-11-23 11:44] VITALS: BP 146/74; TEMP 97.7
== END 2022-11-23 14:03 | disposition home or self-care (01) | DRG 247 ==
LOC: 2NO 17:07 → OBSVTOIN 11-20 12:39
PROVIDERS: ADMIT Internal Medicine; ATTEND Family Medicine
PROC: B2111ZZ Fluoroscopy of Multiple Coronary Arteries using Low Osmolar Contrast (ICD-10-PCS; principal; 2022-11-20)
PROC: 027034Z Dilation of Coronary Artery, One Artery with Drug-eluting Intraluminal Device, Percutaneous Approach (ICD-10-PCS; 2022-11-22)
PROC: 4A023N7 Measurement of Cardiac Sampling and Pressure, Left Heart, Percutaneous Approach (ICD-10-PCS; 2022-11-22)
PROC: B2151ZZ Fluoroscopy of Left Heart using Low Osmolar Contrast (ICD-10-PCS; 2022-11-22)
DX: I25.110 Atherosclerotic heart disease of native coronary artery with unstable angina pectoris (principal); I13.0 Hypertensive heart and chronic kidney disease with heart failure and stage 1 through stage 4 chronic kidney disease, or unspecified chronic kidney disease; I50.22 Chronic systolic (congestive) heart failure; Z68.41 Body mass index [BMI] 40.0-44.9, adult; E78.5 Hyperlipidemia, unspecified; J44.9 Chronic obstructive pulmonary disease, unspecified; E11.22 Type 2 diabetes mellitus with diabetic chronic kidney disease; I25.10 Atherosclerotic heart disease of native coronary artery without angina pectoris; N18.30 Chronic kidney disease, stage 3 unspecified; E66.01 Morbid (severe) obesity due to excess calories; Z99.81 Dependence on supplemental oxygen; Z88.0 Allergy status to penicillin
CPT/HCPCS: 36415; 36416; 80048; 80053; 80061; 84145; 84484; 85025; 85347; 92928; 93005; 93010; 93306; 93454; 97139; 99152; 99153; C1725; C1769; C1887; C1894; C9600; G0378; J1644; J2001; J2250; J3010; J7030; Q9967

== ENCOUNTER 2024-06-27 20:07 | Inpatient (IN) | payer MEDICARE, OTHER ==
[2024-06-27 20:20] LABS: Actual Bicarbonate (HCO3a) 25.8 mEq/L (22-28); Analyzer IN Cardio ER; Base Excess (BEa) -1.2 mEq/L (-2.0 to +3.0); CO2 Tension 54.5 mmHg (35.0-45.0); Calcium, Ionized (arterial) 1.24 mmol/L (1.12-1.30); Carboxyhemoglobin (COHb) 0.3 gm% (0.0-3.0); Hematocrit-ABG 29 % (42.0-52.0); pH, Arterial 7.293 (7.35-7.45)
[2024-06-27] MEDS ORDERED: fentaNYL 50 mcg/mL 1 mL Vial ONE (20:21)
[2024-06-27 20:27] LABS: O2 Tension (PaO2), arterial 49.7 mmHg (> 80.0); Potassium - ABG Lab 6.01 mmol/L (3.70-5.30)
[2024-06-27] MEDS ORDERED: Propofol 1,000 MG/100 ML VIAL IV ONE (20:27)
[2024-06-27 20:28] LABS: ALV-art Gradient 595.175 mmHg (0-20); Puncture Site Right Radial artery
[2024-06-27 20:33] LABS: #Basophils Less than 0.03 10x3/uL (0.0-0.2); #Eosinophils Less than 0.03 10x3/uL (0.0-0.7); %Basophils 0.1 % (0.0-1.0); %Eosinophils 0.1 % (0.0-10.0); %Lymphocytes 3.7 % (21.0-51.0); %Monocytes 0.6 % (0.0-10.0); %Neutrophils 94.7 % (42.0-75.0); Hemoglobin 9.6 g/dL (14.0-18.0); Mean Corpuscular HGB CONC 26.7 g/dL (32.0-36.0); Mean Corpuscular Hemoglobin 20.1 pg (27.0-31.0); Mean Corpuscular Volume 75.3 fL (78.0-98.0); Mean Platelet Volume 9.8 fL (7.4-10.4); Platelet Count 462 10x3/uL (130-400); RBC Distribution Width 21.1 % (11.5-14.5); Red Blood Cell (RBC) Count 4.78 mill/uL (4.70-6.10)
[2024-06-27] MEDS ORDERED: Albuterol 2.5 MG (3 mL) NEB ONE (20:38)
[2024-06-27 20:51] LABS: ALT (SGPT) 15 U/L (8-55); AST (SGOT) 13 U/L (5-34); Albumin 3.6 g/dL (3.4-4.8); Alkaline Phosphatase 80 U/L (40-110); Anion Gap 13 mmol/L (10-20); BUN (Urea Nitrogen) 43 mg/dL (8.4-25.7); Bilirubin, Total 0.4 mg/dL (0.2-1.2); Calc. Creatinine Clearance 0 mL/min (70-130); Calcium 9.3 mg/dL (7.8-10.44); Carbon Dioxide 30 mmol/L (23-31); Chloride 101 mmol/L (98-107); Estimated GFR 26; Globulin 3.6 g/dL (2.4-3.5); Glucose 247 mg/dL (80-115); Magnesium 2.8 mg/dL (1.6-2.6); Potassium 6.6 mmol/L (3.5-5.1); Protein, Total 7.2 g/dL (5.8-8.1); Sodium 137 mmol/L (136-145)
[2024-06-27 20:52] LABS: Hypochromia SLIGHT = 6-15 cells HPF (0-5); Microcytosis SLIGHT = 6-15 cells HPF (0-5); Platelet Adequacy Comment Platelets Normal; Polychromasia SLIGHT = 2-3 cells HPF (0-2); Stomatocytes SLIGHT = 2-5 cells HPF (0-1)
[2024-06-27 20:57] LABS: Troponin I 0.021 ng/mL (< 0.028)
[2024-06-27] MEDS ORDERED: Dextrose 10% in Water 250 ML ONE (20:58)
[2024-06-27] MEDS ORDERED: CALCIUM GLUC 1 GM/NS 50 ML IV Bag ONE (20:59)
[2024-06-27] MEDS ORDERED: Sodium Bicarb 50 MEQ/50 ML Abboject 8.4% SYRINGE ONE (20:59)
[2024-06-27] MEDS ORDERED: Insulin Regular, Human 100 UNIT/ML 10 ML VIAL ONE (20:59)
[2024-06-27] MEDS ORDERED: Glucagon 1 MG/ML KIT IM PRN (22:37)
[2024-06-27] MEDS ORDERED: Dextrose 50% Abboject 50 ML SYRINGE SLOW IVP PRN (22:37)
[2024-06-27] MEDS ORDERED: Dextrose 5% in Water 1,000 ML IV PRN (22:37)
[2024-06-27] MEDS ORDERED: Ventilator Sedation Protocol 1 EACH FS SCH (23:00)
[2024-06-27] MEDS ORDERED: Fentanyl BOLUS 250 ML IVPB PRN (23:15)
[2024-06-27] MEDS: Ipratropium/Albuterol 3 ML NEB NEB SCH (23:15)
[2024-06-27] MEDS ORDERED: Propofol BOLUS 1,000 MG/100 ML VIAL IV PRN (23:15)
[2024-06-27] MEDS: Sodium Chloride 0.9% 1,000 ML IV SCH (23:39)
[2024-06-27] MEDS: Doxycycline 100 MG in Sodium Chloride 0.9% 100 ML IVPB SCH (23:39)
[2024-06-27] MEDS: methylPREDNISolone Sod Succ 40 MG VIAL IVP SCH (23:40)
[2024-06-28 00:54] LABS: Anion Gap 16 mmol/L (10-20); BUN (Urea Nitrogen) 44 mg/dL (8.4-25.7); Calc. Creatinine Clearance 56 mL/min (70-130); Calcium 9.3 mg/dL (7.8-10.44); Carbon Dioxide 26 mmol/L (23-31); Chloride 104 mmol/L (98-107); Estimated GFR 25; Glucose 270 mg/dL (80-115); Potassium 6.2 mmol/L (3.5-5.1); Sodium 140 mmol/L (136-145)
[2024-06-28] MEDS: LOKELMA 10 GM PACKET PO SCH (01:51)
[2024-06-28] MEDS: Insulin Regular, Human 100 UNIT/ML 10 ML VIAL IVP SCH (01:51)
[2024-06-28] MEDS: Cefepime 2 GM in Sodium Chloride 0.9% 100 ML IVPB SCH (02:30)
[2024-06-28] MEDS: Propofol 1,000 MG/100 ML VIAL IV PRN (03:12)
[2024-06-28 03:20] LABS: Base Excess (BEa) 2.1 mEq/L (-2.0 to +3.0); CO2 Tension 50.6 mmHg (35.0-45.0); Calcium, Ionized (arterial) 1.25 mmol/L (1.12-1.30); Hematocrit-ABG 27 % (42.0-52.0); Hemoglobin (Hb) 9.1 g/dL (14.0-18.0); Potassium - ABG Lab 5.33 mmol/L (3.70-5.30); pH, Arterial 7.361 (7.35-7.45)
[2024-06-28 03:21] LABS: Puncture Site Left Radial artery
[2024-06-28 04:41] LABS: #Basophils Less than 0.03 10x3/uL (0.0-0.2); #Eosinophils Less than 0.03 10x3/uL (0.0-0.7); %Lymphocytes 3.9 % (21.0-51.0); %Neutrophils 93.5 % (42.0-75.0); Hemoglobin 8.1 g/dL (14.0-18.0); Mean Corpuscular HGB CONC 27.9 g/dL (32.0-36.0); Mean Corpuscular Hemoglobin 20.4 pg (27.0-31.0); Mean Corpuscular Volume 72.9 fL (78.0-98.0); Mean Platelet Volume 9.9 fL (7.4-10.4); Platelet Count 397 10x3/uL (130-400); RBC Distribution Width 20.4 % (11.5-14.5); Red Blood Cell (RBC) Count 3.98 mill/uL (4.70-6.10)
[2024-06-28 05:04] LABS: ALT (SGPT) 13 U/L (8-55); AST (SGOT) 15 U/L (5-34); Albumin 2.9 g/dL (3.4-4.8); Alkaline Phosphatase 62 U/L (40-110); Anion Gap 14 mmol/L (10-20); BUN (Urea Nitrogen) 45 mg/dL (8.4-25.7); Bilirubin, Total 0.3 mg/dL (0.2-1.2); Calc. Creatinine Clearance 56 mL/min (70-130); Calcium 8.9 mg/dL (7.8-10.44); Carbon Dioxide 26 mmol/L (23-31); Chloride 104 mmol/L (98-107); Estimated GFR 25; Globulin 2.9 g/dL (2.4-3.5); Glucose 244 mg/dL (80-115); Iron 11 ug/dL (65-175); Iron Binding Capacity, Total 321 mcg/dL (261-462); Potassium 5.4 mmol/L (3.5-5.1); Protein, Total 5.8 g/dL (5.8-8.1); Sodium 139 mmol/L (136-145)
[2024-06-28 05:09] LABS: Iron 12 ug/dL (65-175); Iron Binding Capacity, Total 320 mcg/dL (261-462); Magnesium 2.5 mg/dL (1.6-2.6)
[2024-06-28 05:12] LABS: Anisocytosis SLIGHT = 6-15 cells HPF (0-5); Hypochromia SLIGHT = 6-15 cells HPF (0-5); Microcytosis SLIGHT = 6-15 cells HPF (0-5); Platelet Adequacy Comment Platelets Normal; Polychromasia SLIGHT = 2-3 cells HPF (0-2)
[2024-06-28] MEDS: Pantoprazole 40 MG VIAL IVP SCH (10:03)
[2024-06-28] MEDS: Heparin 5,000 UNITS/ML VIAL SC SCH (10:03)
[2024-06-28] MEDS: FLU (Fluad Triv) TS24-25 (65UP)/MF59C/PF 45 MCG/0.5 ML Syringe IM ONE (11:17)
[2024-06-28] MEDS: Insulin Lispro 100 UNIT/ML 10 ML VIAL SC PRN (11:23)
[2024-06-28 12:25] LABS: Anion Gap 16 mmol/L (10-20); BUN (Urea Nitrogen) 52 mg/dL (8.4-25.7); Calc. Creatinine Clearance 53 mL/min (70-130); Carbon Dioxide 25 mmol/L (23-31); Chloride 103 mmol/L (98-107); Estimated GFR 24; Glucose 289 mg/dL (80-115); Potassium 5.5 mmol/L (3.5-5.1); Sodium 138 mmol/L (136-145)
[2024-06-28] MEDS: Albumin 25% 25 GM (100 mL) BOT IVPB SCH (12:37)
[2024-06-28] MEDS: Sodium Ferric Gluconate 125 MG in Sodium Chloride 0.9% 100 ML IVPB SCH (13:14)
[2024-06-28] MEDS ORDERED: Furosemide 40 MG (4 mL) VIAL SLOW IVP SCH (14:00)
[2024-06-28] MEDS: Fentanyl CADD 100 ML IV SCH (16:25)
[2024-06-28 20:12] LABS: Bacteria/HPF None Seen HPF (None Seen); Bilirubin Negative (Negative); Blood, Urine Negative (Negative); Clarity Clear (Clear); Glucose, Urine (Dipstick) Normal (Negative); Ketone, Urine Negative (Negative); Leukocyte Negative Leu/uL (Negative); Nitrite Negative (Negative); Protein, Urine (Dipstick) 30 mg/dL (Neg-Trace); RBC/HPF 0-3 HPF (0-3); Specific Gravity, Urine 1.018 (1.002-1.036); Squamous Epithelial None Seen HPF (0-3); Urobilinogen Normal mg/dL (Less than 2); WBC/HPF 0-3 HPF (0-3)
[2024-06-29 05:36] LABS: #Basophils Less than 0.03 10x3/uL (0.0-0.2); #Eosinophils Less than 0.03 10x3/uL (0.0-0.7); %Lymphocytes 3.6 % (21.0-51.0); %Monocytes 3.8 % (0.0-10.0); %Neutrophils 92.1 % (42.0-75.0); Hematocrit 25.1 % (42.0-52.0); Hemoglobin 7.3 g/dL (14.0-18.0); Mean Corpuscular HGB CONC 29.1 g/dL (32.0-36.0); Mean Corpuscular Hemoglobin 20.5 pg (27.0-31.0); Mean Corpuscular Volume 70.5 fL (78.0-98.0); Mean Platelet Volume 10.3 fL (7.4-10.4); Platelet Count 387 10x3/uL (130-400); RBC Distribution Width 20.3 % (11.5-14.5); Red Blood Cell (RBC) Count 3.56 mill/uL (4.70-6.10)
[2024-06-29 05:49] LABS: ALT (SGPT) 10 U/L (8-55); AST (SGOT) 12 U/L (5-34); Albumin 3.4 g/dL (3.4-4.8); Alkaline Phosphatase 51 U/L (40-110); Anion Gap 14 mmol/L (10-20); BUN (Urea Nitrogen) 58 mg/dL (8.4-25.7); Bilirubin, Total 0.3 mg/dL (0.2-1.2); Calc. Creatinine Clearance 57 mL/min (70-130); Calcium 9.1 mg/dL (7.8-10.44); Carbon Dioxide 27 mmol/L (23-31); Chloride 104 mmol/L (98-107); Estimated GFR 25; Globulin 2.5 g/dL (2.4-3.5); Glucose 252 mg/dL (80-115); Magnesium 2.6 mg/dL (1.6-2.6); Protein, Total 5.9 g/dL (5.8-8.1); Sodium 140 mmol/L (136-145)
[2024-06-29] MEDS: Lorazepam 2 MG/ML VIAL SLOW IVP PRN (08:11)
[2024-06-29] MEDS: Furosemide 40 MG (4 mL) VIAL SLOW IVP SCH (18:03)
[2024-06-29] MEDS: methylPREDNISolone Sod Succ 40 MG VIAL IVP SCH (21:08)
[2024-06-30] MEDS: Furosemide 40 MG (4 mL) VIAL SLOW IVP SCH (05:06)
[2024-06-30 05:57] LABS: #Basophils Less than 0.03 10x3/uL (0.0-0.2); #Eosinophils Less than 0.03 10x3/uL (0.0-0.7); %Lymphocytes 6.3 % (21.0-51.0); %Monocytes 5.2 % (0.0-10.0); %Neutrophils 87.8 % (42.0-75.0); Hematocrit 26.3 % (42.0-52.0); Hemoglobin 7.8 g/dL (14.0-18.0); Mean Corpuscular HGB CONC 29.7 g/dL (32.0-36.0); Mean Corpuscular Hemoglobin 20.9 pg (27.0-31.0); Mean Corpuscular Volume 70.3 fL (78.0-98.0); Mean Platelet Volume 9.8 fL (7.4-10.4); Platelet Count 375 10x3/uL (130-400); RBC Distribution Width 20.5 % (11.5-14.5); Red Blood Cell (RBC) Count 3.74 mill/uL (4.70-6.10)
[2024-06-30 06:11] LABS: ALT (SGPT) 8 U/L (8-55); AST (SGOT) 9 U/L (5-34); Albumin 3.2 g/dL (3.4-4.8); Alkaline Phosphatase 47 U/L (40-110); Anion Gap 14 mmol/L (10-20); BUN (Urea Nitrogen) 62 mg/dL (8.4-25.7); Bilirubin, Total 0.3 mg/dL (0.2-1.2); Calc. Creatinine Clearance 61 mL/min (70-130); Calcium 9.2 mg/dL (7.8-10.44); Carbon Dioxide 26 mmol/L (23-31); Chloride 105 mmol/L (98-107); Estimated GFR 28; Globulin 2.7 g/dL (2.4-3.5); Glucose 265 mg/dL (80-115); Magnesium 2.5 mg/dL (1.6-2.6); Potassium 4.6 mmol/L (3.5-5.1); Protein, Total 5.9 g/dL (5.8-8.1); Sodium 140 mmol/L (136-145)
[2024-06-30 06:44] LABS: Hypochromia SLIGHT = 6-15 cells HPF (0-5); Microcytosis SLIGHT = 6-15 cells HPF (0-5); Platelet Adequacy Comment Platelets Normal; Polychromasia SLIGHT = 2-3 cells HPF (0-2)
[2024-06-30] MEDS: Dexmedetomidine In 0.9 % NaCl 100 ML IV SCH (09:15)
[2024-06-30] MEDS: hydrALAZINE 25 MG TAB PO SCH ×2 (12:57→20:00)
[2024-06-30] MEDS: Albumin 25% 25 GM (100 mL) BOT IVPB SCH (12:58)
[2024-06-30] MEDS: Carvedilol 6.25 MG TAB PO SCH (12:58)
[2024-06-30] MEDS: Cefepime 2 GM in Sodium Chloride 0.9% 100 ML IVPB SCH (12:58)
[2024-06-30] MEDS: Carvedilol 3.125 MG TAB PO SCH (16:18)
[2024-06-30] MEDS: Sodium Chloride 0.9% 100 ML ONE (16:19)
[2024-06-30] MEDS: Insulin Lispro 100 UNIT/ML 10 ML VIAL SC PRN (18:01)
[2024-06-30] MEDS: Insulin Glargine 30 UNITS/0.3 ML VIAL SC SCH (20:00)
[2024-06-30] MEDS: Atorvastatin Calcium 40 MG TAB PO SCH (20:04)
[2024-07-01 06:24] LABS: Anion Gap 15 mmol/L (10-20); BUN (Urea Nitrogen) 72 mg/dL (8.4-25.7); Calc. Creatinine Clearance 67 mL/min (70-130); Calcium 9.4 mg/dL (7.8-10.44); Carbon Dioxide 26 mmol/L (23-31); Chloride 105 mmol/L (98-107); Estimated GFR 31; Glucose 151 mg/dL (80-115); Potassium 3.6 mmol/L (3.5-5.1); Sodium 142 mmol/L (136-145)
[2024-07-01 06:31] LABS: #Basophils Less than 0.03 10x3/uL (0.0-0.2); #Eosinophils Less than 0.03 10x3/uL (0.0-0.7); %Basophils 0.1 % (0.0-1.0); %Eosinophils 0.2 % (0.0-10.0); %Lymphocytes 12.5 % (21.0-51.0); %Monocytes 9.8 % (0.0-10.0); %Neutrophils 76.9 % (42.0-75.0); Hematocrit 26.8 % (42.0-52.0); Hemoglobin 7.9 g/dL (14.0-18.0); Mean Corpuscular HGB CONC 29.5 g/dL (32.0-36.0); Mean Corpuscular Hemoglobin 20.8 pg (27.0-31.0); Mean Corpuscular Volume 70.5 fL (78.0-98.0); Mean Platelet Volume 9.9 fL (7.4-10.4); Platelet Count 339 10x3/uL (130-400)
[2024-07-01 07:54] LABS: CO2 Tension 43.5 mmHg (35.0-45.0); Calcium, Ionized (arterial) 1.24 mmol/L (1.12-1.30); Hematocrit-ABG 32 % (42.0-52.0); Hemoglobin (Hb) 10.9 g/dL (14.0-18.0); O2 Tension (PaO2), arterial 66.2 mmHg (> 80.0); Potassium - ABG Lab 3.42 mmol/L (3.70-5.30)
[2024-07-01 07:57] LABS: ALV-art Gradient 271.575 mmHg (0-20); Puncture Site Left Radial artery
[2024-07-01] MEDS: methylPREDNISolone Sod Succ 40 MG VIAL IVP SCH (08:24)
[2024-07-01] MEDS: Aspirin Chewable 81 MG TAB PO SCH (08:24)
[2024-07-01] MEDS: Scopolamine 1 mg/72 hour Patch TOP SCH (11:51)
[2024-07-01] MEDS: Albumin 25% 25 GM (100 mL) BOT IVPB SCH (11:51)
[2024-07-01] MEDS: Glycopyrrolate 0.4 MG/ 2 ML VIAL SLOW IVP SCH (15:30)
[2024-07-02 05:44] LABS: Anion Gap 17 mmol/L (10-20); BUN (Urea Nitrogen) 78 mg/dL (8.4-25.7); Calc. Creatinine Clearance 61 mL/min (70-130); Calcium 9.5 mg/dL (7.8-10.44); Carbon Dioxide 26 mmol/L (23-31); Chloride 103 mmol/L (98-107); Estimated GFR 29; Glucose 148 mg/dL (80-115); Potassium 3.6 mmol/L (3.5-5.1); Sodium 142 mmol/L (136-145)
[2024-07-02 06:35] LABS: Band 4 % (5-11); Eosinophils 1 % (0-10); Hypochromia SLIGHT = 6-15 cells HPF (0-5); Large Platelets 4.4 % (0-5); Lymphocytes 9 % (21-51); Metamyelocyte 1 % (0-0); Monocytes 2 % (0-10); Myelocyte 1 % (0-0); Neutrophil 82 % (42-75); Ovalocytes MODERATE= 6-15 cells HPF (0-1); Platelet Adequacy Comment Platelets Normal; Polychromasia SLIGHT = 2-3 cells HPF (0-2)
[2024-07-02 06:44] LABS: Hematocrit 26.8 % (42.0-52.0); Hemoglobin 7.8 g/dL (14.0-18.0); Mean Corpuscular HGB CONC 29.3 g/dL (32.0-36.0); Mean Corpuscular Hemoglobin 20.4 pg (27.0-31.0); Mean Corpuscular Volume 69.6 fL (78.0-98.0); Platelet Count 300 10x3/uL (130-400); RBC Distribution Width 20.9 % (11.5-14.5); Red Blood Cell (RBC) Count 3.88 mill/uL (4.70-6.10)
[2024-07-02] MEDS: Albumin 25% 25 GM (100 mL) BOT IVPB SCH (11:29)
[2024-07-02] MEDS: Furosemide 40 MG (4 mL) VIAL SLOW IVP SCH ×2 (14:16→15:37)
[2024-07-03 04:43] LABS: #Basophils Less than 0.03 10x3/uL (0.0-0.2); %Basophils 0.1 % (0.0-1.0); %Eosinophils 1.3 % (0.0-10.0); %Lymphocytes 7.6 % (21.0-51.0); %Monocytes 8.3 % (0.0-10.0); %Neutrophils 82.3 % (42.0-75.0); Hematocrit 24.5 % (42.0-52.0); Hemoglobin 7.1 g/dL (14.0-18.0); Mean Corpuscular Hemoglobin 20.8 pg (27.0-31.0); Mean Corpuscular Volume 71.6 fL (78.0-98.0); Mean Platelet Volume 9.9 fL (7.4-10.4); Platelet Count 274 10x3/uL (130-400); RBC Distribution Width 21.2 % (11.5-14.5); Red Blood Cell (RBC) Count 3.42 mill/uL (4.70-6.10)
[2024-07-03 04:48] LABS: Anion Gap 18 mmol/L (10-20); BUN (Urea Nitrogen) 83 mg/dL (8.4-25.7); Calc. Creatinine Clearance 64 mL/min (70-130); Calcium 9.6 mg/dL (7.8-10.44); Carbon Dioxide 26 mmol/L (23-31); Chloride 103 mmol/L (98-107); Estimated GFR 30; Glucose 125 mg/dL (80-115); Potassium 3.2 mmol/L (3.5-5.1); Sodium 144 mmol/L (136-145)
[2024-07-03] MEDS: Senokot S 8.6-50 MG TAB PER TUBE SCH (21:19)
[2024-07-04 04:58] LABS: #Basophils Less than 0.03 10x3/uL (0.0-0.2); %Basophils 0.2 % (0.0-1.0); %Eosinophils 3.1 % (0.0-10.0); %Lymphocytes 5.8 % (21.0-51.0); %Monocytes 7.9 % (0.0-10.0); %Neutrophils 82.4 % (42.0-75.0); Hematocrit 27.2 % (42.0-52.0); Hemoglobin 7.9 g/dL (14.0-18.0); Mean Corpuscular Hemoglobin 20.7 pg (27.0-31.0); Mean Corpuscular Volume 71.4 fL (78.0-98.0); Mean Platelet Volume 10.4 fL (7.4-10.4); Platelet Count 292 10x3/uL (130-400); RBC Distribution Width 21.6 % (11.5-14.5); Red Blood Cell (RBC) Count 3.81 mill/uL (4.70-6.10)
[2024-07-04 05:07] LABS: ALT (SGPT) 8 U/L (8-55); AST (SGOT) 10 U/L (5-34); Albumin 4.1 g/dL (3.4-4.8); Alkaline Phosphatase 36 U/L (40-110); Anion Gap 20 mmol/L (10-20); BUN (Urea Nitrogen) 86 mg/dL (8.4-25.7); Bilirubin, Direct 0.2 mg/dL (0.1-0.3); Bilirubin, Total 0.4 mg/dL (0.2-1.2); Calc. Creatinine Clearance 59 mL/min (70-130); Calcium 9.6 mg/dL (7.8-10.44); Carbon Dioxide 23 mmol/L (23-31); Chloride 104 mmol/L (98-107); Estimated GFR 26; Glucose 143 mg/dL (80-115); Potassium 3.3 mmol/L (3.5-5.1); Protein, Total 6.7 g/dL (5.8-8.1); Sodium 144 mmol/L (136-145)
[2024-07-04] MEDS: Polyethylene Glycol 3350 17 GM Packet PER TUBE SCH (09:36)
[2024-07-04] MEDS: Metolazone 5 MG TAB PO SCH (09:47)
[2024-07-04] MEDS: Potassium Chloride 20 MEQ in Premix 1 BAG IVPB SCH (09:47)
[2024-07-04] MEDS: Metoclopramide HCl 10 MG (2 mL) VIAL IVP SCH (09:47)
[2024-07-04] MEDS: Lansoprazole 30 MG/10 ML UDCUP PER TUBE SCH (09:48)
[2024-07-04] MEDS: Bisacodyl 10 MG SUPP PR PRN (09:52)
[2024-07-04] MEDS: Scopolamine 1 mg/72 hour Patch TOP SCH (11:41)
[2024-07-04] MEDS: Albumin 25% 25 GM (100 mL) BOT IVPB SCH (11:42)
[2024-07-05 05:10] LABS: #Basophils Less than 0.03 10x3/uL (0.0-0.2); %Basophils 0.2 % (0.0-1.0); %Eosinophils 3.5 % (0.0-10.0); %Monocytes 9.2 % (0.0-10.0); %Neutrophils 78.7 % (42.0-75.0); Hemoglobin 8.1 g/dL (14.0-18.0); Mean Corpuscular Hemoglobin 21.3 pg (27.0-31.0); Mean Corpuscular Volume 71.1 fL (78.0-98.0); Mean Platelet Volume 10.8 fL (7.4-10.4); Platelet Count 263 10x3/uL (130-400); RBC Distribution Width 21.4 % (11.5-14.5)
[2024-07-05 05:14] LABS: Anion Gap 18 mmol/L (10-20); BUN (Urea Nitrogen) 100 mg/dL (8.4-25.7); Calc. Creatinine Clearance 58 mL/min (70-130); Calcium 9.8 mg/dL (7.8-10.44); Carbon Dioxide 25 mmol/L (23-31); Chloride 104 mmol/L (98-107); Estimated GFR 26; Glucose 165 mg/dL (80-115); Potassium 3.4 mmol/L (3.5-5.1); Sodium 144 mmol/L (136-145)
[2024-07-05 07:12] LABS: Base Excess (BEa) -0.1 mEq/L (-2.0 to +3.0); CO2 Tension 49.1 mmHg (35.0-45.0); Calcium, Ionized (arterial) 1.24 mmol/L (1.12-1.30); Carboxyhemoglobin (COHb) 1.3 gm% (0.0-3.0); Hematocrit-ABG 27 % (42.0-52.0); Hemoglobin (Hb) 9.1 g/dL (14.0-18.0); Potassium - ABG Lab 3.24 mmol/L (3.70-5.30); pH, Arterial 7.341 (7.35-7.45)
[2024-07-05 07:13] LABS: Puncture Site Right Radial artery
[2024-07-05 07:14] LABS: ALV-art Gradient 244.725 mmHg (0-20)
[2024-07-05 08:42] LABS: Magnesium 2.2 mg/dL (1.6-2.6)
[2024-07-05] MEDS ORDERED: Potassium Chloride 20 MEQ TAB PO SCH (09:45)
[2024-07-05] MEDS: Potassium Bicarbonate/Cit Ac 20 MEQ TAB PO SCH (10:42)
[2024-07-05] MEDS: Spironolactone 25 MG TAB PO SCH (14:48)
[2024-07-05] MEDS: EPOETIN ALFA-EPBX (ESRD) 10,000 UNITS/ML VIAL SC SCH (14:49)
[2024-07-05] MEDS: Lactulose 20 GM (30 mL) UDCUP PO SCH (14:50)
[2024-07-05] MEDS: Sodium Ferric Gluconate 250 MG in Sodium Chloride 0.9% 250 ML 250 ML IVPB SCH (15:32)
[2024-07-05 16:51] LABS: Creatinine, Urine 29.63 mg/dL (63-166)
[2024-07-05] MEDS: Insulin Glargine 30 UNITS/0.3 ML VIAL SC SCH (21:14)
[2024-07-05] MEDS: Insulin Lispro 100 UNIT/ML 10 ML VIAL SC PRN (22:06)
[2024-07-06 05:26] LABS: #Basophils 0.04 10x3/uL (0.0-0.2); %Basophils 0.3 % (0.0-1.0); %Eosinophils 3.4 % (0.0-10.0); %Lymphocytes 5.2 % (21.0-51.0); %Monocytes 9.1 % (0.0-10.0); %Neutrophils 81.4 % (42.0-75.0); Hematocrit 29.6 % (42.0-52.0); Hemoglobin 8.7 g/dL (14.0-18.0); Mean Corpuscular HGB CONC 29.4 g/dL (32.0-36.0); Mean Corpuscular Hemoglobin 21.2 pg (27.0-31.0); Mean Platelet Volume 10.2 fL (7.4-10.4); Platelet Count 285 10x3/uL (130-400); Red Blood Cell (RBC) Count 4.11 mill/uL (4.70-6.10)
[2024-07-06 05:31] LABS: Anion Gap 19 mmol/L (10-20); BUN (Urea Nitrogen) 111 mg/dL (8.4-25.7); Calc. Creatinine Clearance 52 mL/min (70-130); Calcium 10.2 mg/dL (7.8-10.44); Carbon Dioxide 25 mmol/L (23-31); Chloride 103 mmol/L (98-107); Estimated GFR 24; Glucose 205 mg/dL (80-115); Potassium 3.4 mmol/L (3.5-5.1); Sodium 144 mmol/L (136-145)
[2024-07-06 07:06] LABS: Actual Bicarbonate (HCO3a) 25.8 mEq/L (22-28); Base Excess (BEa) 0.2 mEq/L (-2.0 to +3.0); CO2 Tension 46.7 mmHg (35.0-45.0); Calcium, Ionized (arterial) 1.25 mmol/L (1.12-1.30); Carboxyhemoglobin (COHb) 1.5 gm% (0.0-3.0); Hematocrit-ABG 26 % (42.0-52.0); Hemoglobin (Hb) 8.9 g/dL (14.0-18.0); Potassium - ABG Lab 3.42 mmol/L (3.70-5.30); pH, Arterial 7.361 (7.35-7.45)
[2024-07-06 07:29] LABS: Puncture Site Right Radial artery
[2024-07-06 07:30] LABS: ALV-art Gradient 312.325 mmHg (0-20)
[2024-07-06] MEDS ORDERED: Spironolactone 25 MG TAB PO SCH (08:00)
[2024-07-06] MEDS: Mineral Oil ENEMA PR SCH (09:50)
[2024-07-06] MEDS: Potassium Chloride 20 MEQ in Premix 1 BAG IVPB SCH (12:30)
[2024-07-07 04:57] LABS: #Basophils 0.05 10x3/uL (0.0-0.2); %Basophils 0.4 % (0.0-1.0); %Eosinophils 2.9 % (0.0-10.0); %Lymphocytes 8.7 % (21.0-51.0); %Monocytes 10.3 % (0.0-10.0); Hematocrit 29.2 % (42.0-52.0); Hemoglobin 8.5 g/dL (14.0-18.0); Mean Corpuscular HGB CONC 29.1 g/dL (32.0-36.0); Mean Corpuscular Hemoglobin 21.2 pg (27.0-31.0); Mean Corpuscular Volume 72.8 fL (78.0-98.0); Mean Platelet Volume 10.5 fL (7.4-10.4); Platelet Count 301 10x3/uL (130-400); RBC Distribution Width 22.5 % (11.5-14.5); Red Blood Cell (RBC) Count 4.01 mill/uL (4.70-6.10)
[2024-07-07 05:00] LABS: Anion Gap 21 mmol/L (10-20); BUN (Urea Nitrogen) 122 mg/dL (8.4-25.7); Calc. Creatinine Clearance 41 mL/min (70-130); Carbon Dioxide 23 mmol/L (23-31); Chloride 105 mmol/L (98-107); Estimated GFR 18; Glucose 178 mg/dL (80-115); Potassium 3.5 mmol/L (3.5-5.1); Sodium 145 mmol/L (136-145)
[2024-07-07 10:28] LABS: O2 Tension (PaO2), arterial 56.3 mmHg (> 80.0)
[2024-07-07 10:36] LABS: O2 Tension (PaO2), arterial 50.4 mmHg (> 80.0)
[2024-07-07 10:40] LABS: O2 Tension (PaO2), arterial 57.1 mmHg (> 80.0)
[2024-07-07] MEDS: Pantoprazole 40 MG VIAL IVP SCH (11:23)
[2024-07-07] MEDS: Albumin 25% 25 GM (100 mL) BOT IVPB SCH (11:31)
[2024-07-07] MEDS ORDERED: Metoclopramide HCl 10 MG (2 mL) VIAL IVP PRN (16:24)
[2024-07-08 05:56] LABS: #Basophils 0.06 10x3/uL (0.0-0.2); %Basophils 0.5 % (0.0-1.0); %Eosinophils 2.2 % (0.0-10.0); %Lymphocytes 6.6 % (21.0-51.0); %Monocytes 9.3 % (0.0-10.0); Hematocrit 28.3 % (42.0-52.0); Hemoglobin 8.4 g/dL (14.0-18.0); Mean Corpuscular HGB CONC 29.7 g/dL (32.0-36.0); Mean Corpuscular Hemoglobin 21.4 pg (27.0-31.0); Mean Platelet Volume 9.8 fL (7.4-10.4); Platelet Count 339 10x3/uL (130-400); RBC Distribution Width 22.7 % (11.5-14.5); Red Blood Cell (RBC) Count 3.93 mill/uL (4.70-6.10)
[2024-07-08 06:49] LABS: Anion Gap 22 mmol/L (10-20); Calc. Creatinine Clearance 37 mL/min (70-130); Calcium 10.4 mg/dL (7.8-10.44); Carbon Dioxide 20 mmol/L (23-31); Chloride 110 mmol/L (98-107); Estimated GFR 16; Glucose 184 mg/dL (80-115); Iron 131 ug/dL (65-175); Potassium 3.2 mmol/L (3.5-5.1); Sodium 149 mmol/L (136-145)
[2024-07-08 06:56] LABS: BUN (Urea Nitrogen) 130 mg/dL (8.4-25.7)
[2024-07-08 07:52] LABS: Actual Bicarbonate (HCO3a) 23.9 mEq/L (22-28); Base Excess (BEa) -1.9 mEq/L (-2.0 to +3.0); CO2 Tension 45.3 mmHg (35.0-45.0); Calcium, Ionized (arterial) 1.33 mmol/L (1.12-1.30); Carboxyhemoglobin (COHb) 1.1 gm% (0.0-3.0); Hematocrit-ABG 32 % (42.0-52.0); Hemoglobin (Hb) 10.8 g/dL (14.0-18.0); pH, Arterial 7.341 (7.35-7.45)
[2024-07-08 08:15] LABS: O2 Tension (PaO2), arterial 50.3 mmHg (> 80.0)
[2024-07-08 08:16] LABS: ALV-art Gradient 178.275 mmHg (0-20); Puncture Site Right Radial artery
[2024-07-08] MEDS ORDERED: Heparin 25,000 units/D5W 500 ML IVPB SCH (08:30)
[2024-07-08] MEDS ORDERED: Heparin 10,000 UNITS/ 10 ML VIAL SLOW IVP SCH (08:30)
[2024-07-08 09:09] LABS: Hemoglobin 8.3 g/dL (14.0-18.0); Platelet Count 352 10x3/uL (130-400)
[2024-07-08] MEDS: Magnesium Citrate 300 ML BOT PO SCH (09:50)
[2024-07-08] MEDS: Bisacodyl 10 MG SUPP PR SCH (09:50)
[2024-07-08] MEDS: Enoxaparin 60 MG (0.6 mL) SYRINGE SC SCH (09:51)
[2024-07-08] MEDS: Pantoprazole 40 MG VIAL IVP SCH (09:51)
[2024-07-08] MEDS: Sodium Chloride 0.9% 1,000 ML IV SCH (10:05)
[2024-07-08] MEDS ORDERED: Potassium Chloride 20 MEQ TAB PO ONE (12:52)
[2024-07-08] MEDS ORDERED: Electrolyte Replacement Protocol 1 EACH FS SCH (13:00)
[2024-07-08] MEDS: Potassium Chloride 20 MEQ in Premix 1 BAG IVPB SCH (13:34)
[2024-07-08] MEDS: Potassium Bicarbonate/Cit Ac 20 MEQ TAB PER TUBE SCH (13:43)
[2024-07-08] MEDS: Sodium Chloride 0.45% 1,000 ML IV SCH (15:23)
[2024-07-08] MEDS: Acetaminophen 325 MG TAB PER TUBE PRN (20:07)
[2024-07-09] MEDS ORDERED: Heparin 10,000 UNITS/ 10 ML VIAL ONE (11:06)
[2024-07-09] MEDS ORDERED: hydrALAZINE 25 MG TAB ONE (20:40)
[2024-07-09] MEDS ORDERED: Atorvastatin Calcium 40 MG TAB ONE (20:40)
[2024-07-09] MEDS ORDERED: Glycopyrrolate 0.4 MG/ 2 ML VIAL ONE (23:35)
[2024-07-09] MEDS ORDERED: Propofol 1,000 MG/100 ML VIAL IV ONE (23:35)
[2024-07-10] MEDS ORDERED: Cefepime 2 GM VIAL ONE (02:20)
[2024-07-10] MEDS ORDERED: hydrALAZINE 25 MG TAB ONE (08:35)
[2024-07-10] MEDS ORDERED: Aspirin Chewable 81 MG TAB ONE (08:35)
[2024-07-10] MEDS ORDERED: Carvedilol 3.125 MG TAB ONE (08:35)
[2024-07-10] MEDS ORDERED: Glycopyrrolate 0.4 MG/ 2 ML VIAL ONE (08:35)
[2024-07-10] MEDS ORDERED: Pantoprazole DR 40 MG TAB ONE (08:35)
[2024-07-10] MEDS ORDERED: methylPREDNISolone Sod Succ 40 MG VIAL ONE (08:35)
[2024-07-10] MEDS ORDERED: Senokot S 8.6-50 MG TAB ONE (08:35)
[2024-07-10] MEDS ORDERED: Scopolamine 1 mg/72 hour Patch ONE (11:00)
[2024-07-10] MEDS ORDERED: Heparin 10,000 UNITS/ 10 ML VIAL ONE (11:08)
[2024-07-11] MEDS ORDERED: Labetalol HCl 100 MG/20 ML VIAL SLOW IVP PRN (01:08)
[2024-07-11] MEDS: Cefepime 1 GM VIAL ONE ×3 (01:38→15:54)
[2024-07-11 03:56] LABS: #Basophils 0.12 10x3/uL (0.0-0.2); %Basophils 0.8 % (0.0-1.0); %Lymphocytes 7.9 % (21.0-51.0); %Monocytes 6.7 % (0.0-10.0); %Neutrophils 80.7 % (42.0-75.0); Hematocrit 32.4 % (42.0-52.0); Hemoglobin 9.4 g/dL (14.0-18.0); Mean Corpuscular Hemoglobin 21.4 pg (27.0-31.0); Mean Corpuscular Volume 73.8 fL (78.0-98.0); Mean Platelet Volume 10.1 fL (7.4-10.4); Platelet Count 441 10x3/uL (130-400); RBC Distribution Width 23.9 % (11.5-14.5); Red Blood Cell (RBC) Count 4.39 mill/uL (4.70-6.10)
[2024-07-11 04:59] LABS: ALT (SGPT) 13 U/L (8-55); AST (SGOT) 11 U/L (5-34); Albumin 3.7 g/dL (3.4-4.8); Alkaline Phosphatase 41 U/L (40-110); Anion Gap 21 mmol/L (10-20); BUN (Urea Nitrogen) 107 mg/dL (8.4-25.7); Bilirubin, Total 0.4 mg/dL (0.2-1.2); Calc. Creatinine Clearance 30 mL/min (70-130); Calcium 10.4 mg/dL (7.8-10.44); Carbon Dioxide 21 mmol/L (23-31); Chloride 103 mmol/L (98-107); Estimated GFR 12; Globulin 3.3 g/dL (2.4-3.5); Glucose 196 mg/dL (80-115); Potassium 3.6 mmol/L (3.5-5.1); Sodium 141 mmol/L (136-145)
[2024-07-11 10:16] LABS: Anion Gap 20 mmol/L (10-20); Calc. Creatinine Clearance 34 mL/min (70-130); Calcium 10.4 mg/dL (7.8-10.44); Carbon Dioxide 22 mmol/L (23-31); Chloride 107 mmol/L (98-107); Estimated GFR 14; Glucose 172 mg/dL (80-115); Magnesium 2.8 mg/dL (1.6-2.6); Phosphorus 4.2 mg/dL (2.3-4.7); Potassium 3.4 mmol/L (3.5-5.1); Sodium 146 mmol/L (136-145)
[2024-07-11 11:05] LABS: BUN (Urea Nitrogen) 124 mg/dL (8.4-25.7)
[2024-07-11] MEDS ORDERED: Heparin 10,000 UNITS/ 10 ML VIAL ONE (11:10)
[2024-07-11] MEDS ORDERED: Rocuronium Bromide 10 MG/ML (10ML VIAL) ONE ×2 (12:16→12:45)
[2024-07-11] MEDS ORDERED: PROPOFOL 20 ML ONE (12:16)
[2024-07-11] MEDS ORDERED: Midazolam HCl 2 mg/2 ml Vial ONE (12:16)
[2024-07-11] MEDS ORDERED: PHENYLEPHRINE-NS 100 MCG/ML 10 ML SYRINGE ONE (12:18)
[2024-07-11] MEDS: Activase 2 MG VIAL CATH SCH (12:28)
[2024-07-11] MEDS ORDERED: PROPOFOL 200 MG/20 ML VIAL ONE (12:45)
[2024-07-11] MEDS: Acetaminophen 650 MG Suppository PR PRN (15:54)
[2024-07-11 17:39] LABS: %Basophils 0.8 % (0.0-1.0); %Eosinophils 2.8 % (0.0-10.0); %Lymphocytes 8.4 % (21.0-51.0); Hematocrit 29.4 % (42.0-52.0); Hemoglobin 8.5 g/dL (14.0-18.0); Mean Corpuscular HGB CONC 28.9 g/dL (32.0-36.0); Mean Corpuscular Hemoglobin 21.5 pg (27.0-31.0); Mean Corpuscular Volume 74.2 fL (78.0-98.0); Platelet Count 425 10x3/uL (130-400); RBC Distribution Width 23.7 % (11.5-14.5); Red Blood Cell (RBC) Count 3.96 mill/uL (4.70-6.10)
[2024-07-12] MEDS: Sodium Chloride 0.9% 100 ML ONE ×9 (02:45→22:26)
[2024-07-12] MEDS: Cefepime 1 GM VIAL ONE ×6 (02:45→22:26)
[2024-07-12 05:58] LABS: Anion Gap 25 mmol/L (10-20); BUN (Urea Nitrogen) 106 mg/dL (8.4-25.7); Calc. Creatinine Clearance 25 mL/min (70-130); Calcium 9.9 mg/dL (7.8-10.44); Carbon Dioxide 18 mmol/L (23-31); Chloride 101 mmol/L (98-107); Estimated GFR 10; Glucose 137 mg/dL (80-115); Potassium 4.1 mmol/L (3.5-5.1); Sodium 140 mmol/L (136-145)
[2024-07-12 06:15] LABS: #Basophils 0.08 10x3/uL (0.0-0.2); %Basophils 0.5 % (0.0-1.0); %Eosinophils 1.9 % (0.0-10.0); %Lymphocytes 8.4 % (21.0-51.0); %Monocytes 7.3 % (0.0-10.0); %Neutrophils 80.3 % (42.0-75.0); Hematocrit 32.7 % (42.0-52.0); Hemoglobin 9.5 g/dL (14.0-18.0); Mean Corpuscular HGB CONC 29.1 g/dL (32.0-36.0); Mean Corpuscular Hemoglobin 21.6 pg (27.0-31.0); Mean Corpuscular Volume 74.3 fL (78.0-98.0); Platelet Count 367 10x3/uL (130-400); RBC Distribution Width 24.7 % (11.5-14.5)
[2024-07-12 08:44] LABS: Hematocrit 30.8 % (42.0-52.0); Hemoglobin 9.1 g/dL (14.0-18.0); Platelet Count 358 10x3/uL (130-400)
[2024-07-12] MEDS ORDERED: Heparin 10,000 UNITS/ 10 ML VIAL ONE (11:12)
[2024-07-12] MEDS: Midazolam HCl 2 mg/2 ml Vial ONE (20:28)
[2024-07-12] MEDS: Apixaban 5 MG TAB ONE ×3 (20:28→22:27)
[2024-07-12] MEDS: Vecuronium 10 MG VIAL ONE (20:28)
[2024-07-12] MEDS: Lidocaine 1% w/Epinephrine 1:100K 20 ML VIAL ONE (20:28)
[2024-07-12] MEDS: Atorvastatin Calcium 40 MG TAB PO SCH (20:47)
[2024-07-13] MEDS: Apixaban 5 MG TAB ONE ×2 (09:24→20:11)
[2024-07-13 10:03] LABS: Anion Gap 23 mmol/L (10-20); BUN (Urea Nitrogen) 77 mg/dL (8.4-25.7); Calc. Creatinine Clearance 28 mL/min (70-130); Calcium 9.6 mg/dL (7.8-10.44); Carbon Dioxide 21 mmol/L (23-31); Chloride 97 mmol/L (98-107); Estimated GFR 11; Glucose 221 mg/dL (80-115); Hematocrit 32.3 % (42.0-52.0); Hemoglobin 9.6 g/dL (14.0-18.0); Mean Corpuscular HGB CONC 29.7 g/dL (32.0-36.0); Mean Corpuscular Hemoglobin 21.9 pg (27.0-31.0); Mean Corpuscular Volume 73.7 fL (78.0-98.0); Mean Platelet Volume 9.9 fL (7.4-10.4); Platelet Count 332 10x3/uL (130-400); Potassium 3.6 mmol/L (3.5-5.1); RBC Distribution Width 25.2 % (11.5-14.5); Red Blood Cell (RBC) Count 4.38 mill/uL (4.70-6.10); Sodium 137 mmol/L (136-145)
[2024-07-13] MEDS ORDERED: VANCOMYCIN IVPB PRN (10:23)
[2024-07-13 10:31] LABS: Burr Cells SLIGHT = 2-5 cells HPF (0-1); Macrocytosis SLIGHT = 6-15 cells HPF (0-5); Ovalocytes MODERATE= 6-15 cells HPF (0-1); Platelet Adequacy Comment Platelets Normal; Polychromasia MODERATE = 3-4 cells HPF (0-2)
[2024-07-13 10:37] LABS: %Basophils 0.7 % (0.0-1.0); %Eosinophils 1.8 % (0.0-10.0); %Monocytes 6.6 % (0.0-10.0); %Neutrophils 83.7 % (42.0-75.0)
[2024-07-13] MEDS ORDERED: Vancomycin Dialysis Sliding Scale (Wt > 99) FS SCH (10:45)
[2024-07-13] MEDS: Cefepime 1 GM in Sodium Chloride 0.9% 100 ML IVPB SCH ×2 (11:15→20:09)
[2024-07-13] MEDS: Vancomycin (BATCH) 2 GM in Premix 1 BAG IVPB SCH (12:30)
[2024-07-13] MEDS: Cefepime 1 GM VIAL ONE (18:08)
[2024-07-13] MEDS: Sodium Chloride 0.9% 100 ML ONE (18:09)
[2024-07-13] MEDS: Apixaban 5 MG TAB PO SCH (21:18)
[2024-07-14] MEDS: Cefepime 1 GM VIAL ONE (00:28)
[2024-07-14] MEDS: Sodium Chloride 0.9% 100 ML ONE (00:28)
[2024-07-14 04:32] LABS: #Basophils 0.08 10x3/uL (0.0-0.2); %Basophils 0.5 % (0.0-1.0); %Monocytes 6.2 % (0.0-10.0); Hematocrit 29.7 % (42.0-52.0); Hemoglobin 9.2 g/dL (14.0-18.0); Mean Corpuscular Hemoglobin 22.4 pg (27.0-31.0); Mean Corpuscular Volume 72.4 fL (78.0-98.0); Mean Platelet Volume 9.9 fL (7.4-10.4); Platelet Count 347 10x3/uL (130-400); RBC Distribution Width 25.9 % (11.5-14.5)
[2024-07-14 04:40] LABS: Anion Gap 23 mmol/L (10-20); BUN (Urea Nitrogen) 99 mg/dL (8.4-25.7); Calc. Creatinine Clearance 21 mL/min (70-130); Calcium 9.8 mg/dL (7.8-10.44); Carbon Dioxide 20 mmol/L (23-31); Chloride 97 mmol/L (98-107); Estimated GFR 8; Glucose 230 mg/dL (80-115); Potassium 3.9 mmol/L (3.5-5.1); Sodium 136 mmol/L (136-145)
[2024-07-14] MEDS: Albuterol 2.5 MG (3 mL) NEB NEB PRN (07:32)
[2024-07-14] MEDS: Apixaban 5 MG TAB PO SCH (08:30)
[2024-07-14 08:31] LABS: Hemoglobin 9.2 g/dL (14.0-18.0); Platelet Count 347 10x3/uL (130-400)
[2024-07-14] MEDS ORDERED: Heparin 10,000 UNITS/ 10 ML VIAL ONE (11:13)
[2024-07-14 12:59] LABS: Vancomycin, Trough 16.3 ug/mL
[2024-07-14] MEDS: Vancomycin 1 GM in Premix 1 BAG IVPB SCH (17:25)
[2024-07-14] MEDS: Cefepime 1 GM in Sodium Chloride 0.9% 100 ML IVPB SCH (21:05)
[2024-07-14] MEDS: Apixaban 5 MG TAB ONE (21:05)
[2024-07-15] MEDS: Ondansetron PF 4 MG/2 ML Vial IVP PRN (05:30)
[2024-07-15 06:24] LABS: #Basophils 0.11 10x3/uL (0.0-0.2); %Basophils 0.7 % (0.0-1.0); %Eosinophils 2.5 % (0.0-10.0); %Lymphocytes 5.8 % (21.0-51.0); %Monocytes 5.7 % (0.0-10.0); %Neutrophils 84.3 % (42.0-75.0); Hematocrit 31.7 % (42.0-52.0); Hemoglobin 9.9 g/dL (14.0-18.0); Mean Corpuscular HGB CONC 31.2 g/dL (32.0-36.0); Mean Corpuscular Volume 73.7 fL (78.0-98.0); Mean Platelet Volume 10.3 fL (7.4-10.4); Platelet Count 396 10x3/uL (130-400); RBC Distribution Width 26.9 % (11.5-14.5)
[2024-07-15 06:29] LABS: Anion Gap 23 mmol/L (10-20); BUN (Urea Nitrogen) 80 mg/dL (8.4-25.7); Calc. Creatinine Clearance 23 mL/min (70-130); Calcium 10.3 mg/dL (7.8-10.44); Carbon Dioxide 23 mmol/L (23-31); Chloride 94 mmol/L (98-107); Estimated GFR 9; Glucose 186 mg/dL (80-115); Potassium 3.6 mmol/L (3.5-5.1); Sodium 136 mmol/L (136-145)
[2024-07-15 06:41] VITALS: BMI 39.5
[2024-07-15 06:53] LABS: Anisocytosis SLIGHT = 6-15 cells HPF (0-5); Hypochromia SLIGHT = 6-15 cells HPF (0-5); Platelet Adequacy Comment Platelets Normal; Polychromasia SLIGHT = 2-3 cells HPF (0-2); Tear Drops SLIGHT = 2-5 cells HPF (0-1)
[2024-07-15 07:56] LABS: Vancomycin, Trough 28.4 ug/mL
[2024-07-15] MEDS: Pantoprazole DR 40 MG TAB PO SCH (09:00)
[2024-07-15] MEDS ORDERED: Heparin 10,000 UNITS/ 10 ML VIAL ONE (11:16)
[2024-07-15] MEDS: Activase 2 MG VIAL CATH SCH (19:15)
[2024-07-16 06:55] LABS: Anion Gap 24 mmol/L (10-20); BUN (Urea Nitrogen) 59 mg/dL (8.4-25.7); Calc. Creatinine Clearance 28 mL/min (70-130); Calcium 9.6 mg/dL (7.8-10.44); Carbon Dioxide 23 mmol/L (23-31); Chloride 98 mmol/L (98-107); Estimated GFR 12; Glucose 174 mg/dL (80-115); Potassium 3.9 mmol/L (3.5-5.1); Sodium 141 mmol/L (136-145)
[2024-07-16 07:30] LABS: #Basophils 0.16 10x3/uL (0.0-0.2); %Eosinophils 3.3 % (0.0-10.0); %Lymphocytes 8.1 % (21.0-51.0); %Monocytes 8.4 % (0.0-10.0); %Neutrophils 78.1 % (42.0-75.0); Hematocrit 33.3 % (42.0-52.0); Hemoglobin 9.7 g/dL (14.0-18.0); Mean Corpuscular HGB CONC 29.1 g/dL (32.0-36.0); Mean Corpuscular Hemoglobin 22.6 pg (27.0-31.0); Mean Corpuscular Volume 77.6 fL (78.0-98.0); Mean Platelet Volume 10.4 fL (7.4-10.4); Platelet Count 449 10x3/uL (130-400); RBC Distribution Width 28.1 % (11.5-14.5); Red Blood Cell (RBC) Count 4.29 mill/uL (4.70-6.10)
[2024-07-16 09:02] LABS: Hematocrit 34.5 % (42.0-52.0); Hemoglobin 10.1 g/dL (14.0-18.0); Platelet Count 436 10x3/uL (130-400)
[2024-07-16] MEDS: Apixaban 5 MG TAB ONE ×2 (09:18→21:11)
[2024-07-16] MEDS: GLYCOPYRROLATE/PF 0.2 MG/ML VIAL SLOW IVP SCH (09:19)
[2024-07-16] MEDS: Glycopyrrolate 0.4 MG/ 2 ML VIAL SLOW IVP SCH (18:11)
[2024-07-17 04:40] LABS: Anion Gap 25 mmol/L (10-20); BUN (Urea Nitrogen) 81 mg/dL (8.4-25.7); Calc. Creatinine Clearance 20 mL/min (70-130); Calcium 9.5 mg/dL (7.8-10.44); Carbon Dioxide 20 mmol/L (23-31); Chloride 97 mmol/L (98-107); Estimated GFR 8; Glucose 147 mg/dL (80-115); Potassium 3.6 mmol/L (3.5-5.1); Sodium 138 mmol/L (136-145)
[2024-07-17 04:41] LABS: #Basophils 0.13 10x3/uL (0.0-0.2); %Basophils 0.8 % (0.0-1.0); %Eosinophils 3.2 % (0.0-10.0); %Lymphocytes 5.6 % (21.0-51.0); %Neutrophils 82.4 % (42.0-75.0); Hematocrit 30.7 % (42.0-52.0); Mean Corpuscular HGB CONC 29.3 g/dL (32.0-36.0); Mean Corpuscular Hemoglobin 22.4 pg (27.0-31.0); Mean Corpuscular Volume 76.4 fL (78.0-98.0); Mean Platelet Volume 10.6 fL (7.4-10.4); Platelet Count 394 10x3/uL (130-400); RBC Distribution Width 28.6 % (11.5-14.5); Red Blood Cell (RBC) Count 4.02 mill/uL (4.70-6.10)
[2024-07-17 05:11] LABS: Anisocytosis SLIGHT = 6-15 cells HPF (0-5); Hypochromia SLIGHT = 6-15 cells HPF (0-5); Microcytosis SLIGHT = 6-15 cells HPF (0-5); Platelet Adequacy Comment Platelets Normal; Polychromasia SLIGHT = 2-3 cells HPF (0-2)
[2024-07-17] MEDS: Lansoprazole 30 MG/10 ML UDCUP PER TUBE SCH (10:13)
[2024-07-17 12:32] VITALS: BMI 39.2
[2024-07-17 13:01] VITALS: TEMP 98.1
[2024-07-17] MEDS ORDERED: Morphine 2 MG/ML VIAL SLOW IVP PRN (16:11)
[2024-07-17] MEDS: Morphine 2 MG/ML VIAL SLOW IVP PRN (16:29)
[2024-07-17 18:23] VITALS: BP 94/64
== END 2024-07-17 18:28 | disposition hospice, inpatient (51) | DRG 4 ==
LOC: ERS 20:07 → CCU 21:56
PROVIDERS: ADMIT Internal Medicine; ATTEND Internal Medicine
PROC: 4A133R1 Monitoring of Arterial Saturation, Peripheral, Percutaneous Approach (ICD-10-PCS; principal; 2024-06-27)
PROC: 5A1955Z Respiratory Ventilation, Greater than 96 Consecutive Hours (ICD-10-PCS; 2024-06-27)
PROC: 0BJ08ZZ Inspection of Tracheobronchial Tree, Via Natural or Artificial Opening Endoscopic (ICD-10-PCS; 2024-06-27)
PROC: 0DH63UZ Insertion of Feeding Device into Stomach, Percutaneous Approach (ICD-10-PCS; 2024-06-27)
PROC: 0B113F4 Bypass Trachea to Cutaneous with Tracheostomy Device, Percutaneous Approach (ICD-10-PCS; 2024-07-10)
DX: J96.21 Acute and chronic respiratory failure with hypoxia (principal); I50.23 Acute on chronic systolic (congestive) heart failure; J18.9 Pneumonia, unspecified organism; N17.0 Acute kidney failure with tubular necrosis; A41.9 Sepsis, unspecified organism; I13.0 Hypertensive heart and chronic kidney disease with heart failure and stage 1 through stage 4 chronic kidney disease, or unspecified chronic kidney disease; J44.1 Chronic obstructive pulmonary disease with (acute) exacerbation; I67.4 Hypertensive encephalopathy; I82.412 Acute embolism and thrombosis of left femoral vein; J96.22 Acute and chronic respiratory failure with hypercapnia; E78.5 Hyperlipidemia, unspecified; M19.90 Unspecified osteoarthritis, unspecified site; E87.5 Hyperkalemia; N18.30 Chronic kidney disease, stage 3 unspecified; E11.22 Type 2 diabetes mellitus with diabetic chronic kidney disease; E87.6 Hypokalemia; D63.1 Anemia in chronic kidney disease; Z51.5 Encounter for palliative care; E11.40 Type 2 diabetes mellitus with diabetic neuropathy, unspecified; E66.01 Morbid (severe) obesity due to excess calories; R53.81 Other malaise; R13.12 Dysphagia, oropharyngeal phase; K59.00 Constipation, unspecified; D50.9 Iron deficiency anemia, unspecified; Z68.39 Body mass index [BMI] 39.0-39.9, adult; Z91.148 Patient's other noncompliance with medication regimen for other reason; Z95.820 Peripheral vascular angioplasty status with implants and grafts; Z79.890 Hormone replacement therapy; Z79.82 Long term (current) use of aspirin; Z79.891 Long term (current) use of opiate analgesic; Z79.84 Long term (current) use of oral hypoglycemic drugs; Z79.01 Long term (current) use of anticoagulants; Z90.89 Acquired absence of other organs; Z88.0 Allergy status to penicillin
CPT/HCPCS: 36415; 36416; 36430; 36600; 71045; 71250; 74018; 74176; 76770; 80048; 80053; 80076; 80202; 81001; 82570; 82728; 82805; 83540; 83550; 83605; 83735; 83880; 84100; 84145; 84156; 84300; 84484; 84540; 85025; 85730; 86850; 86900; 86901; 87040; 90653; 90935; 90945; 93005; 93306; 93970; 94002; 94003; 96365; 96366; 96375; 96376; B4087; G0257; J0613; J0692; J1644; J1650; J1815; J1940; J2060; J2250; J2272; J2405; J2470; J2704; J2765; J2916; J2919; J2997; J3010; J3370; J3370-JW; J3480; J3490; J7030; J7050; J7611; J7620; P9016; P9047; Q5105

== ENCOUNTER 2024-07-17 18:29 | Inpatient (IN) | payer OTHER ==
[2024-07-17] MEDS: Morphine 4 MG/ML VIAL SLOW IVP SCH (18:44)
[2024-07-17] MEDS: Lorazepam 2 MG/ML VIAL SLOW IVP SCH (18:44)
[2024-07-17] MEDS: Morphine 4 MG/ML VIAL SLOW IVP PRN (19:08)
[2024-07-17] MEDS: Lorazepam 2 MG/ML VIAL SLOW IVP PRN (19:35)
[2024-07-17] MEDS ORDERED: Lorazepam 2 MG/ML VIAL SLOW IVP PRN (22:43)
[2024-07-18 00:31] VITALS: BP 93/59; TEMP 98.1
[2024-07-19] MEDS ORDERED: Scopolamine 1 mg/72 hour Patch TOP SCH (12:00)
== END 2024-07-17 23:27 | disposition expired | DRG 951 ==
LOC: CCU 18:29 → T4-B 22:17
PROVIDERS: ADMIT Internal Medicine Nephrology; ATTEND Internal Medicine Nephrology
DX: Z51.5 Encounter for palliative care (principal); J96.21 Acute and chronic respiratory failure with hypoxia; J96.22 Acute and chronic respiratory failure with hypercapnia; I50.23 Acute on chronic systolic (congestive) heart failure; G93.41 Metabolic encephalopathy; J44.1 Chronic obstructive pulmonary disease with (acute) exacerbation; N17.9 Acute kidney failure, unspecified; I13.0 Hypertensive heart and chronic kidney disease with heart failure and stage 1 through stage 4 chronic kidney disease, or unspecified chronic kidney disease; E87.5 Hyperkalemia; E11.22 Type 2 diabetes mellitus with diabetic chronic kidney disease; E66.01 Morbid (severe) obesity due to excess calories; Z88.0 Allergy status to penicillin; I25.10 Atherosclerotic heart disease of native coronary artery without angina pectoris; N18.30 Chronic kidney disease, stage 3 unspecified; Z90.49 Acquired absence of other specified parts of digestive tract
CPT/HCPCS: J2060; J2272